=== PATIENT | male | born 1950 | race Caucasian/White ===

== ENCOUNTER → 2016-06-10 | Outpatient (CLI) | payer OTHER ==
[2016-06-10 16:48] LABS: BASO # 0.1 K/mm3 (0.0-0.2); EOS # 0.1 K/mm3 (0.0-0.50); LARGE UNSTAINED CELL # 0.1 K/mm3 (0.0-0.4); LARGE UNSTAINED CELL % 1.8 % (0.0-4.0); LYMPH # 2.1 K/mm3 (1.5-4.5); LYMPH % 28.9 % (24.0-44.0); MEAN CORPUSCULAR HEMOGLOBIN 27.3 pg (27.0-33.0); MEAN CORPUSCULAR HGB CONC 31.1 g/dl (32.0-36.5); MEAN CORPUSCULAR VOLUME 87.8 fl (80.0-96.0); MONO # 0.5 K/mm3 (0.0-0.8); MONO % 6.9 % (0.0-5.0); NEUTROPHILS # 4.1 K/mm3 (1.8-7.7); NEUTROPHILS % 60.3 % (36.0-66.0); PLATELET COUNT, AUTOMATED 297 k/mm3 (150-450); RED CELL DISTRIBUTION WIDTH 14.1 % (11.5-14.5); WHITE BLOOD COUNT 6.8 K/mm3 (4.0-10.0)
[2016-06-10 19:13] LABS: ALBUMIN 4.2 GM/DL (3.2-5.2); ALKALINE PHOSPHATASE 96 U/L (45-117); ALT/SGPT 28 U/L (12-78); ANION GAP 8 MEQ/L (8-16); AST/SGOT 17 U/L (15-37); BILIRUBIN,TOTAL 0.5 MG/DL (0.2-1.0); BLOOD UREA NITROGEN 15 MG/DL (7-18); CALCIUM LEVEL 8.9 MG/DL (8.8-10.2); CARBON DIOXIDE LEVEL 29 MEQ/L (21-32); CHLORIDE LEVEL 106 MEQ/L (98-107); GLOMERULAR FILTRATION RATE > 60.0 (>49); GLUCOSE, FASTING 101 MG/DL (80-110); POTASSIUM SERUM 4.5 MEQ/L (3.5-5.1); SODIUM LEVEL 143 MEQ/L (136-145); TOTAL PROTEIN 7.2 GM/DL (6.4-8.2)
== END ==
LOC: M WUC 10:54
PROVIDERS: ATTEND Physician Assistant
DX: R42 Dizziness and giddiness (principal)

== ENCOUNTER → 2016-10-30 | Outpatient (CLI) | payer OTHER ==
[2016-10-30 14:44] LABS: ALBUMIN 3.8 GM/DL (3.2-5.2); ALBUMIN/GLOBULIN RATIO 1.23 (1.00-1.93); ALKALINE PHOSPHATASE 92 U/L (45-117); ALT/SGPT 30 U/L (12-78); ANION GAP 7 MEQ/L (8-16); AST/SGOT 15 U/L (15-37); BILIRUBIN,TOTAL 0.3 MG/DL (0.2-1.0); BLOOD UREA NITROGEN 12 MG/DL (7-18); CALCIUM LEVEL 9.1 MG/DL (8.8-10.2); CARBON DIOXIDE LEVEL 29 MEQ/L (21-32); CHLORIDE LEVEL 109 MEQ/L (98-107); CHOLESTEROL LEVEL 216 MG/DL (<200); CREATININE FOR GFR 1.19 MG/DL (0.70-1.30); GLOMERULAR FILTRATION RATE > 60.0 (>49); GLUCOSE, FASTING 128 MG/DL (80-110); SODIUM LEVEL 145 MEQ/L (136-145); TOTAL PROTEIN 6.9 GM/DL (6.4-8.2); TRIGLYCERIDES LEVEL 82 MG/DL (<150)
[2016-10-30 14:47] LABS: POTASSIUM SERUM 5.2 MEQ/L (3.5-5.1)
== END ==
LOC: M WUC 08:42
PROVIDERS: ATTEND Nurse Practitioner Family
DX: R07.9 Chest pain, unspecified (principal); Z13.220 Encounter for screening for lipoid disorders

== ENCOUNTER → 2016-12-08 | Outpatient (CLI) | payer OTHER ==
[~2016-12-08] MED LIST: ASPI1TAB PO; ATOR40TA75 PO; METF500T13 PO
--- NOTE | 2016-12-09 02:47 | REP ---
Clinical: Precordial chest pain . Comparison: 08/19/2006 . Technique: PA and lateral. Findings: The mediastinum and cardiac silhouette are normal. The lung florence are clear and without acute consolidation, effusion, or pneumothorax. The skeletal structures are intact and normal. Impression: 1. No acute cardiopulmonary process. Signed by Donny Christensen MD 12/09/2016 02:39 A
== END ==
LOC: M WUC 18:03
PROVIDERS: ATTEND Internal Medicine Cardiovascular Disease
DX: R07.2 Precordial pain (principal)

== ENCOUNTER → 2017-01-25 | Outpatient (CLI) | payer OTHER ==
[2017-01-25 14:58] LABS: ALBUMIN 3.8 GM/DL (3.2-5.2); ALBUMIN/GLOBULIN RATIO 1.27 (1.00-1.93); BILIRUBIN,DIRECT 0.1 MG/DL (0.0-0.2); BILIRUBIN,TOTAL 0.5 MG/DL (0.2-1.0); TOTAL PROTEIN 6.8 GM/DL (6.4-8.2)
== END ==
LOC: M WUC 08:43
PROVIDERS: ATTEND Internal Medicine Cardiovascular Disease
DX: E78.5 Hyperlipidemia, unspecified (principal)

== ENCOUNTER → 2017-01-25 | Outpatient (CLI) | payer OTHER ==
[2017-01-25 15:03] LABS: ALBUMIN/GLOBULIN RATIO 1.38 (1.00-1.93); ALKALINE PHOSPHATASE 108 U/L (45-117); ALT/SGPT 27 U/L (12-78); ANION GAP 7 MEQ/L (8-16); AST/SGOT 18 U/L (15-37); BILIRUBIN,TOTAL 0.4 MG/DL (0.2-1.0); BLOOD UREA NITROGEN 12 MG/DL (7-18); CALCIUM LEVEL 9.1 MG/DL (8.8-10.2); CARBON DIOXIDE LEVEL 29 MEQ/L (21-32); CHLORIDE LEVEL 108 MEQ/L (98-107); CHOLESTEROL LEVEL 117 MG/DL (<200); CREATININE FOR GFR 0.96 MG/DL (0.70-1.30); GLOMERULAR FILTRATION RATE > 60.0 (>49); GLUCOSE, FASTING 122 MG/DL (80-110); SODIUM LEVEL 144 MEQ/L (136-145); TOTAL PROTEIN 6.9 GM/DL (6.4-8.2); TRIGLYCERIDES LEVEL 81 MG/DL (<150)
== END ==
LOC: M WUC 08:40
PROVIDERS: ATTEND Nurse Practitioner Family
DX: R73.01 Impaired fasting glucose (principal); E78.5 Hyperlipidemia, unspecified

== ENCOUNTER 2017-02-03 23:45 | Emergency (ER) | payer OTHER ==
[~2017-02-03] VITALS: Ht 167.6 cm; Wt 67.7 kg
[2017-02-03] MEDS ORDERED: ASPI1TAB PO (23:54)
[2017-02-03] MEDS ORDERED: METF500T13 PO (23:54)
[2017-02-03] MEDS ORDERED: ATOR40TA75 PO (23:54)
[2017-02-04] MEDS ORDERED: ONDANSETRON 4MG/2ML VIAL (J2405) IV ONE (00:45)
[2017-02-04] MEDS ORDERED: NS 500 ML IV ONE (00:45)
[2017-02-04] MEDS ORDERED: DICYCLOMINE INJ 20MG/2ML (J0500) IM ONE (00:45)
[2017-02-04 00:57] LABS: BASO % 0.3 % (0.0-1.0); EOS % 0.6 % (0.0-3.0); LARGE UNSTAINED CELL # 0.1 K/mm3 (0.0-0.4); LARGE UNSTAINED CELL % 1.2 % (0.0-4.0); LYMPH # 0.9 K/mm3 (1.5-4.5); LYMPH % 11.6 % (24.0-44.0); MEAN CORPUSCULAR HEMOGLOBIN 24.1 pg (27.0-33.0); MEAN CORPUSCULAR HGB CONC 31.4 g/dl (32.0-36.5); MEAN CORPUSCULAR VOLUME 76.8 fl (80.0-96.0); MONO # 0.3 K/mm3 (0.0-0.8); MONO % 4.5 % (0.0-5.0); NEUTROPHILS % 81.8 % (36.0-66.0); PLATELET COUNT, AUTOMATED 313 k/mm3 (150-450); RED CELL DISTRIBUTION WIDTH 15.3 % (11.5-14.5); WHITE BLOOD COUNT 7.3 K/mm3 (4.0-10.0)
[2017-02-04 01:23] LABS: ALBUMIN 3.7 GM/DL (3.2-5.2); ALBUMIN/GLOBULIN RATIO 1.09 (1.00-1.93); ALKALINE PHOSPHATASE 101 U/L (45-117); ALT/SGPT 46 U/L (12-78); ANION GAP 6 MEQ/L (8-16); AST/SGOT 29 U/L (15-37); BILIRUBIN,DIRECT 0.1 MG/DL (0.0-0.2); BILIRUBIN,TOTAL 0.4 MG/DL (0.2-1.0); BLOOD UREA NITROGEN 16 MG/DL (7-18); CALCIUM LEVEL 8.6 MG/DL (8.8-10.2); CARBON DIOXIDE LEVEL 27 MEQ/L (21-32); CHLORIDE LEVEL 104 MEQ/L (98-107); CREATININE FOR GFR 0.98 MG/DL (0.70-1.30); GLOMERULAR FILTRATION RATE > 60.0 (>49); GLUCOSE, FASTING 169 MG/DL (80-110); SODIUM LEVEL 137 MEQ/L (136-145); TOTAL PROTEIN 7.1 GM/DL (6.4-8.2)
[2017-02-04 01:45] VITALS: BP 161/94
== END 2017-02-04 01:47 | disposition home or self-care (01) ==
LOC: M ED 23:45
DX: R10.30 Lower abdominal pain, unspecified (principal); D64.9 Anemia, unspecified; E11.9 Type 2 diabetes mellitus without complications; E78.5 Hyperlipidemia, unspecified; Z79.899 Other long term (current) drug therapy; Z79.84 Long term (current) use of oral hypoglycemic drugs; Z79.82 Long term (current) use of aspirin
CPT/HCPCS: 36415; 80048; 80076; 83690; 85025; 96372; 96374; 99283; J0500; J2405

== ENCOUNTER → 2017-02-26 | Outpatient (CLI) | payer OTHER ==
[2017-02-26 13:25] LABS: BASO # 0.1 10^3/uL (0.0-0.2); BASO % 0.8 % (0.0-1.0); EOS # 0.1 10^3/uL (0.0-0.50); EOS % 1.4 % (0.0-3.0); IMMATURE GRANULOCYTE % 0.2 % (0-0); LYMPH # 1.9 10^3/uL (1.5-4.5); LYMPH % 29.1 % (24.0-44.0); MEAN CORPUSCULAR HEMOGLOBIN 22.5 pg (27.0-33.0); MEAN CORPUSCULAR HGB CONC 29.1 g/dl (32.0-36.5); MEAN CORPUSCULAR VOLUME 77.3 fl (80.0-96.0); MONO # 0.6 10^3/uL (0.0-0.8); MONO % 9.5 % (0.0-5.0); NEUTROPHILS # 3.8 10^3/uL (1.8-7.7); PLATELET COUNT, AUTOMATED 377 10^3/uL (150-450); RED CELL DISTRIBUTION WIDTH 15.4 % (11.5-14.5); WHITE BLOOD COUNT 6.4 10^3/uL (4.0-10.0)
[2017-02-26 20:05] LABS: REASON FOR REVIEW COMPREHENSIVE REVIEW
== END ==
LOC: M WUC 10:05
PROVIDERS: ATTEND Nurse Practitioner Family
DX: D64.9 Anemia, unspecified (principal)

== ENCOUNTER → 2017-04-09 | Outpatient (CLI) | payer OTHER ==
[~2017-04-09] MED LIST changes: +GLYB125TA PO; +IRON65TA PO
[2017-04-09 13:27] LABS: BASO % 0.5 % (0.0-1.0); EOS # 0.1 10^3/uL (0.0-0.50); EOS % 1.5 % (0.0-3.0); IMMATURE GRANULOCYTE % 0.3 % (0-0); LYMPH # 1.8 10^3/uL (1.5-4.5); MEAN CORPUSCULAR HEMOGLOBIN 27.5 pg (27.0-33.0); MEAN CORPUSCULAR HGB CONC 31.5 g/dl (32.0-36.5); MEAN CORPUSCULAR VOLUME 87.3 fl (80.0-96.0); MONO # 0.6 10^3/uL (0.0-0.8); MONO % 9.3 % (0.0-5.0); NEUTROPHILS % 61.4 % (36.0-66.0); PLATELET COUNT, AUTOMATED 310 10^3/uL (150-450); WHITE BLOOD COUNT 6.6 10^3/uL (4.0-10.0)
[2017-04-09 13:36] LABS: ADD MORPHOLOGY? YES; POSITIVE MORPH POS FLAG
[2017-04-09 13:58] LABS: ANISOCYTOSIS 2+; CRENATED RBC 1+; OVALOCYTES 1+; SCHISTOCYTES 1+
== END ==
LOC: M WUC 10:01
PROVIDERS: ATTEND Nurse Practitioner Family
DX: D64.9 Anemia, unspecified (principal)

== ENCOUNTER 2017-04-15 12:32 | Day surgery (SDC) | payer OTHER ==
[~2017-04-15] VITALS: Ht 167.6 cm; Wt 66.2 kg
[~2017-04-15 12:32] MED LIST changes: +LIDOCAINE 2% INJ 100 MG/5 ML SDV (FOR ANES.) As Ordered ONE; +PROPOFOL 200 MG/20 ML VIAL As Ordered ONE
[2017-04-15] MEDS ORDERED: NS 1,000 ML IV ONE (13:15)
--- NOTE | 2017-04-15 13:37 | ROOR ---
Patient Name: Nura Fink Procedure Date: 04/15/2017 1:15 PM Date of : 1950 Age: 66 Room: [facility] Gender: Male Note Status: Finalized Procedure: Upper GI endoscopy Indications: Iron deficiency anemia Providers: Griffin Mathias Jr, MD Referring MD: Dimitrios Cates NP Requesting Provider: Medicines: Propofol per Anesthesia Complications: No immediate complications. Procedure: Pre-Anesthesia Assessment: - Prior to the procedure, a History and Physical was performed, and patient medications and allergies were reviewed. The patient is competent. The risks and benefits of the procedure and the sedation options and risks were discussed with the patient. All questions were answered and informed consent was obtained. Patient identification and proposed procedure were verified by the physician and the nurse in the pre-procedure area and in the procedure room. Mental Status Examination: alert and oriented. Airway Examination: normal oropharyngeal airway and neck mobility. Respiratory Examination: clear to auscultation. CV Examination: normal. ASA Grade Assessment: II - A patient with mild systemic disease. After reviewing the risks and benefits, the patient was deemed in satisfactory condition to undergo the procedure. The anesthesia plan was to use moderate sedation / analgesia (conscious sedation). Immediately prior to administration of medications, the patient was re-assessed for adequacy to receive sedatives. The heart rate, respiratory rate, oxygen saturations, blood pressure, adequacy of pulmonary ventilation, and response to care were monitored throughout the procedure. The physical status of the patient was re-assessed after the procedure. The Endoscope was introduced through the mouth, and advanced to the second part of duodenum. The patient tolerated the procedure well. The upper GI endoscopy was accomplished without difficulty. Findings: The upper third of the esophagus and middle third of the esophagus were normal. LA Grade A (one or more mucosal breaks less than 5 mm, not extending between tops of 2 mucosal folds) esophagitis with no bleeding was found in the lower third of the esophagus. Biopsies were taken with a cold forceps for histology. Patchy moderate inflammation characterized by congestion (edema), erythema and friability was found in the duodenal bulb. The first portion of the duodenum and second portion of the duodenum were normal. Diffuse mildly erythematous mucosa without bleeding was found in the gastric fundus, in the gastric body, in the gastric antrum, in the prepyloric region of the stomach and at the pylorus. A small hiatal hernia was present. Impression: - Normal upper third of esophagus and middle third of esophagus. - LA Grade A reflux esophagitis. Biopsied. - Duodenitis. - Normal first portion of the duodenum and second portion of the duodenum. - Erythematous mucosa in the gastric fundus, gastric body, antrum, prepyloric region of the stomach and pylorus. - Small hiatal hernia. Recommendation: - Discharge patient to home (ambulatory). Griffin Mathias MD Griffin Mathias Jr, MD 04/15/2017 1:36:47 PM This report has been signed electronically. Number of Addenda: 0 Note Initiated On: 04/15/2017 1:15 PM Estimated Blood Loss: Estimated blood loss: none.
[2017-04-15] MEDS ORDERED: PROPOFOL 200 MG/20 ML VIAL As Ordered ONE (13:48)
[2017-04-15] MEDS ORDERED: PHENYLephrine HCL 500 MCG/5 ML (100MCG/ML) SYRINGE (J2370) As Ordered ONE (13:49)
[2017-04-15 14:30] VITALS: BP 129/68
--- NOTE | 2017-04-15 16:00 | ROOR ---
Patient Name: Nura Fink Procedure Date: 04/15/2017 1:15 PM Date of : 1950 Age: 66 Room: [facility] Gender: Male Note Status: Finalized Procedure: Colonoscopy Indications: Iron deficiency anemia Providers: Griffin Mathias Jr, MD Referring MD: Dimitrios Cates NP Requesting Provider: Medicines: Propofol per Anesthesia Complications: No immediate complications. Procedure: Pre-Anesthesia Assessment: - Prior to the procedure, a History and Physical was performed, and patient medications and allergies were reviewed. The patient is competent. The risks and benefits of the procedure and the sedation options and risks were discussed with the patient. All questions were answered and informed consent was obtained. Patient identification and proposed procedure were verified by the physician and the nurse in the pre-procedure area and in the procedure room. Mental Status Examination: alert and oriented. Airway Examination: normal oropharyngeal airway and neck mobility. Respiratory Examination: clear to auscultation. CV Examination: normal. ASA Grade Assessment: II - A patient with mild systemic disease. After reviewing the risks and benefits, the patient was deemed in satisfactory condition to undergo the procedure. The anesthesia plan was to use moderate sedation / analgesia (conscious sedation). Immediately prior to administration of medications, the patient was re-assessed for adequacy to receive sedatives. The heart rate, respiratory rate, oxygen saturations, blood pressure, adequacy of pulmonary ventilation, and response to care were monitored throughout the procedure. The physical status of the patient was re-assessed after the procedure. The Colonoscope was introduced through the anus and advanced to the cecum, identified by appendiceal orifice and ileocecal valve. The colonoscopy was performed without difficulty. The patient tolerated the procedure well. The quality of the bowel preparation was adequate and good. Findings: A medium polyp was found in the recto-sigmoid colon. The polyp was removed with a hot snare. Resection and retrieval were complete. A few small and large-mouthed diverticula were found in the sigmoid colon. The rectum, descending colon and transverse colon appeared normal. A fungating, infiltrative and ulcerated partially obstructing large mass was found in the ascending colon. The mass was circumferential. Oozing was present. Biopsies were taken with a cold forceps for histology. Area was successfully injected with 2 mL Spot (carbon black) for tattooing. Impression: - One medium polyp at the recto-sigmoid colon, removed with a hot snare. Resected and retrieved. - Diverticulosis in the sigmoid colon. - The rectum, descending colon and transverse colon are normal. - Likely malignant partially obstructing tumor in the ascending colon. Biopsied. Injected. Recommendation: - Discharge patient to home (ambulatory). - Return to my office in 1 week. Griffin Mathias MD Griffin Mathias Jr, MD 04/15/2017 4:00:05 PM This report has been signed electronically. Number of Addenda: 0 Note Initiated On: 04/15/2017 1:15 PM Estimated Blood Loss: Estimated blood loss: none.
== END 2017-04-15 14:50 | disposition home or self-care (01) ==
LOC: M OPP 12:32
PROVIDERS: ATTEND Surgery
DX: R10.13 Epigastric pain (principal); D12.7 Benign neoplasm of rectosigmoid junction; K57.30 Diverticulosis of large intestine without perforation or abscess without bleeding; D49.0 Neoplasm of unspecified behavior of digestive system; K31.89 Other diseases of stomach and duodenum; K29.80 Duodenitis without bleeding; K21.0 Gastro-esophageal reflux disease with esophagitis; K44.9 Diaphragmatic hernia without obstruction or gangrene; D50.9 Iron deficiency anemia, unspecified; E78.00 Pure hypercholesterolemia, unspecified; E11.9 Type 2 diabetes mellitus without complications; R06.02 Shortness of breath; I25.2 Old myocardial infarction; Z79.82 Long term (current) use of aspirin; Z79.84 Long term (current) use of oral hypoglycemic drugs; Z79.899 Other long term (current) drug therapy; Z80.9 Family history of malignant neoplasm, unspecified
CPT/HCPCS: 43239; 45380; 45381; 45385; 88305; J2370

== ENCOUNTER → 2017-04-19 | Outpatient (CLI) | payer OTHER ==
[~2017-04-19] MED LIST changes: -LIDOCAINE 2% INJ 100 MG/5 ML SDV (FOR ANES.) As Ordered ONE; +NEXI40CA PO; -PROPOFOL 200 MG/20 ML VIAL As Ordered ONE
[2017-04-19 11:04] LABS: BLOOD UREA NITROGEN 13 MG/DL (7-18); CREATININE FOR GFR 0.92 MG/DL (0.70-1.30); GLOMERULAR FILTRATION RATE > 60.0 (>49)
== END ==
LOC: M LAB 08:58
PROVIDERS: ATTEND Surgery
DX: D12.2 Benign neoplasm of ascending colon (principal)

== ENCOUNTER → 2017-04-20 | Outpatient (CLI) | payer OTHER ==
[~2017-04-20] MED LIST changes: +GASTROGRAFIN SOLUTION 30ML (Q9963) As Ordered ONE; +ISOVUE-370 76% 100ML VIAL (Q9967) As Ordered ONE
--- NOTE | 2017-04-21 09:47 | REP ---
CONTRAST ENHANCED CT OF THE ABDOMEN AND PELVIS: HISTORY: Right colon mass. TECHNIQUE: Axial contrast enhanced images from the lung bases to the pubic symphysis using oral (per protocol) and 100 mL Isovue 370 intravenous contrast material with coronal and sagittal reformations. COMPARISON: None. FINDINGS: There is mural thickening to the distal/terminal ileum as well as irregular mural thickening having a somewhat mass like appearance at the base of the cecum with asymmetric mural thickening and pericolonic stranding as well as possible few small lymph nodes measuring up to approximately 9 mm (images 90-110). The appendix is normal. The remainder of the colon demonstrates scattered and sigmoid diverticula without acute diverticulitis. The small bowel is without obstruction or further acute inflammatory process. Liver, spleen, pancreas, gallbladder, bilateral adrenal glands and kidneys are normal. Pelvis demonstrate normal bladder and age appropriate prostate/seminal vesicles. No pelvic fluid or ascites. No retroperitoneal adenopathy or significant intra-abdominal adenopathy. Pelvis demonstrates normal bladder and mildly prominent prostate gland measuring approximately 4.5 cm transverse diameter. No free air. No ascites. Musculoskeletal structures demonstrate age related changes without focal osseous abnormality. Lung bases are clear. IMPRESSION: 1. Mural thickening to the terminal ileum as well as irregular asymmetric mass like mural thickening to the base of the cecum with mild pericolonic stranding and few lymph nodes up to approximately 9 mm. Appendix is normal. Differential diagnosis includes neoplasm and an acute terminal ileitis/cecitis. Correlation is required. 2. No further significant acute abdominal or pelvic pathology appreciated. 3. Few scattered colonic and sigmoid diverticula without diverticulitis. 4. Mild atherosclerotic changes to the aorta and branch vessels without aneurysm. Signed by Donny Christensen MD 04/23/2017 08:50 A
== END ==
LOC: M RAD 15:22
PROVIDERS: ATTEND Surgery
DX: D12.2 Benign neoplasm of ascending colon (principal)

== ENCOUNTER 2017-05-03 10:16 | Inpatient (IN) | payer OTHER, MEDICARE ==
[2017-05-03] MEDS: ATORVASTATIN 20 MG TAB PO (09:00)
[~2017-05-03 10:16] MED LIST changes: -ASPI1TAB PO; -ATOR40TA75 PO; -GASTROGRAFIN SOLUTION 30ML (Q9963) As Ordered ONE; -GLYB125TA PO; +GLYCOPYRROLATE INJ 0.2 MG/ML 2 ML VIAL As Ordered; +HYDROmorphone HCL 2 MG/ML 1ML VIAL (J1170) As Ordered; -IRON65TA PO; -ISOVUE-370 76% 100ML VIAL (Q9967) As Ordered ONE; +LIDOCAINE 2% INJ 100 MG/5 ML SDV (FOR ANES.) As Ordered; +LIDOCAINE 2% JELLY 30 ML As Ordered; -METF500T13 PO; +MIDAZOLAM INJ 2 MG/2 ML VIAL (J2250) As Ordered; +NEOSTIGMINE 10 MG/10 ML VIAL (J2710) As Ordered; -NEXI40CA PO; +ONDANSETRON 4MG/2ML VIAL (J2405) As Ordered; +PROPOFOL 200 MG/20 ML VIAL As Ordered; +ROCURONIUM BROMIDE 50 MG/5 ML VIAL As Ordered; +fentaNYL 100 MCG/2 ML INJECTION (J3010) As Ordered
[2017-05-03] MEDS ORDERED: NS 1,000 ML IV ×2 (10:30→14:17)
[2017-05-03] MEDS: LIDOCAINE W/EPINEPHRINE 1% 20ML VIAL As Ordered (12:34)
[2017-05-03] MEDS ORDERED: PROPOFOL 200 MG/20 ML VIAL As Ordered (13:21)
[2017-05-03] MEDS ORDERED: PHENYLEPHRINE INJ 10MG/ML VIAL (J2370) As Ordered (13:21)
[2017-05-03] MEDS ORDERED: ROCURONIUM BROMIDE 50 MG/5 ML VIAL As Ordered (13:21)
[2017-05-03] MEDS ORDERED: fentaNYL 100 MCG/2 ML INJECTION (J3010) As Ordered (13:41)
[2017-05-03] MEDS ORDERED: LABETALOL HCL 100 MG/20 ML VIAL As Ordered ×2 (13:53→15:25)
[2017-05-03] MEDS ORDERED: BUPIVACAINE LIPOSOME/PF 1.3% 20 ML VIAL (13.3MG/ML)(EXPAREL) As Ordered (13:58)
[2017-05-03] MEDS ORDERED: BUPIVACAINE HCL 0.5% 10 ML VIAL As Ordered (14:01)
[2017-05-03] MEDS ORDERED: METOCLOPRAMIDE INJ 10MG/2ML VIAL (J2765) IV (14:15)
[2017-05-03] MEDS ORDERED: PROMETHAZINE INJ 25 MG/ML VIAL (J2550) IV (14:15)
[2017-05-03] MEDS ORDERED: ONDANSETRON 4MG/2ML VIAL (J2405) IV ×3 (14:15→15:00)
[2017-05-03] MEDS ORDERED: IPRATROPIUM 0.5MG/ALBUTEROL 2.5MG INH SOL UD 3ML (DUONEB)(J7620) NEB (14:15)
[2017-05-03] MEDS ORDERED: diphenhydrAMINE INJ 50MG/ML VIAL (J1200) IV (14:30)
[2017-05-03] MEDS ORDERED: NALOXONE INJ 0.4 MG/1 ML VIAL (J2310) IV (14:30)
[2017-05-03] MEDS ORDERED: NALBUPHINE HCL 10 MG/ML AMP (J2300) IV (14:30)
[2017-05-03] MEDS ORDERED: MORPHINE 1MG/ML IN 0.9% NACL 100ML IV BAG IV (14:30)
[2017-05-03] MEDS ORDERED: EPIDURAL/PCA KEYS XX (14:30)
[2017-05-03] MEDS: LR 1,000 ML IV (15:00)
[2017-05-03] MEDS ORDERED: PERCOCET 5MG/325MG TAB PO (15:00)
[2017-05-03] MEDS ORDERED: fentaNYL 100 MCG/2 ML INJECTION (J3010) IV (15:00)
[2017-05-03] MEDS ORDERED: HYDROmorphone HCL 1 MG/ML SYRINGE (J1170) IV (15:00)
[2017-05-03] MEDS: LABETALOL HCL 100 MG/20 ML VIAL IV (15:31)
[2017-05-03] MEDS: KETOROLAC 30 MG/ML VIAL (J1885) IV (15:39)
[2017-05-03] MEDS: NS 1,000 ML IV ×2 (16:41→22:13)
[2017-05-03] MEDS: PANTOPRAZOLE 40MG INJ (PROTONIX) (C9113) IV (16:41)
[2017-05-03] MEDS: IPRATROPIUM 0.5MG/ALBUTEROL 2.5MG INH SOL UD 3ML (DUONEB)(J7620) NEB (20:31)
[2017-05-03] MEDS: CEFAZOLIN SOD 1 GM in APPROPRIATE DILUENT 1 EA IV (21:02)
[2017-05-04] MEDS: NS 1,000 ML IV ×3 (00:42→23:45)
[2017-05-04] MEDS: IPRATROPIUM 0.5MG/ALBUTEROL 2.5MG INH SOL UD 3ML (DUONEB)(J7620) NEB ×4 (01:34→20:34)
[2017-05-04] MEDS: CEFAZOLIN SOD 1 GM in APPROPRIATE DILUENT 1 EA IV ×3 (03:43→20:06)
[2017-05-04 06:42] LABS: MEAN CORPUSCULAR HEMOGLOBIN 27.6 pg (27.0-33.0); MEAN CORPUSCULAR HGB CONC 31.6 g/dl (32.0-36.5); MEAN CORPUSCULAR VOLUME 87.2 fl (80.0-96.0); PLATELET COUNT, AUTOMATED 245 10^3/uL (150-450); RED CELL DISTRIBUTION WIDTH 18.3 % (11.5-14.5); WHITE BLOOD COUNT 6.2 10^3/uL (4.0-10.0)
[2017-05-04 06:53] LABS: ANION GAP 7 MEQ/L (8-16); BLOOD UREA NITROGEN 17 MG/DL (7-18); CALCIUM LEVEL 7.3 MG/DL (8.8-10.2); CARBON DIOXIDE LEVEL 26 MEQ/L (21-32); CHLORIDE LEVEL 108 MEQ/L (98-107); CREATININE FOR GFR 0.89 MG/DL (0.70-1.30); GLOMERULAR FILTRATION RATE > 60.0 (>49); GLUCOSE, FASTING 87 MG/DL (80-110); POTASSIUM SERUM 4.3 MEQ/L (3.5-5.1); SODIUM LEVEL 141 MEQ/L (136-145)
[2017-05-04] MEDS: ATORVASTATIN 20 MG TAB PO (08:18)
[2017-05-04] MEDS: PANTOPRAZOLE 40MG INJ (PROTONIX) (C9113) IV (08:18)
[2017-05-04] MEDS: KETOROLAC 30 MG/ML VIAL (J1885) IV (21:58)
[2017-05-05] MEDS: IPRATROPIUM 0.5MG/ALBUTEROL 2.5MG INH SOL UD 3ML (DUONEB)(J7620) NEB ×4 (02:00→19:58)
[2017-05-05 06:58] LABS: MEAN CORPUSCULAR HEMOGLOBIN 27.8 pg (27.0-33.0); MEAN CORPUSCULAR HGB CONC 32.2 g/dl (32.0-36.5); MEAN CORPUSCULAR VOLUME 86.2 fl (80.0-96.0); PLATELET COUNT, AUTOMATED 257 10^3/uL (150-450); RED CELL DISTRIBUTION WIDTH 17.5 % (11.5-14.5); WHITE BLOOD COUNT 6.9 10^3/uL (4.0-10.0)
[2017-05-05 07:02] LABS: ANION GAP 9 MEQ/L (8-16); BLOOD UREA NITROGEN 12 MG/DL (7-18); CALCIUM LEVEL 7.8 MG/DL (8.8-10.2); CARBON DIOXIDE LEVEL 27 MEQ/L (21-32); CHLORIDE LEVEL 105 MEQ/L (98-107); CREATININE FOR GFR 0.74 MG/DL (0.70-1.30); GLOMERULAR FILTRATION RATE > 60.0 (>49); GLUCOSE, FASTING 78 MG/DL (80-110); SODIUM LEVEL 141 MEQ/L (136-145)
[2017-05-05] MEDS: ATORVASTATIN 20 MG TAB PO (07:54)
[2017-05-05] MEDS: PANTOPRAZOLE 40MG INJ (PROTONIX) (C9113) IV (07:54)
[2017-05-05] MEDS: SIMETHICONE 80 MG CHEW TAB PO ×4 (10:04→20:12)
[2017-05-05] MEDS: ALVIMOPAN 12 MG CAPSULE (ENTEREG) PO ×2 (10:04→20:12)
[2017-05-05] MEDS: INFLUENZA QUADRIVALENT PF VACCINE 0.5ML SYRINGE (90686) IM (11:41)
[2017-05-05] MEDS: PNEUMOCOCCAL VACCINE 0.5ML SYRINGE(90732) PNEUMOVAX 23 IM (11:41)
[2017-05-05] MEDS: NS 1,000 ML IV (17:50)
[2017-05-06] MEDS: IPRATROPIUM 0.5MG/ALBUTEROL 2.5MG INH SOL UD 3ML (DUONEB)(J7620) NEB ×4 (02:00→20:20)
[2017-05-06 07:24] LABS: MEAN CORPUSCULAR HEMOGLOBIN 28.1 pg (27.0-33.0); MEAN CORPUSCULAR HGB CONC 32.5 g/dl (32.0-36.5); MEAN CORPUSCULAR VOLUME 86.5 fl (80.0-96.0); PLATELET COUNT, AUTOMATED 260 10^3/uL (150-450); WHITE BLOOD COUNT 6.5 10^3/uL (4.0-10.0)
[2017-05-06 07:40] LABS: ANION GAP 9 MEQ/L (8-16); BLOOD UREA NITROGEN 10 MG/DL (7-18); CARBON DIOXIDE LEVEL 26 MEQ/L (21-32); CHLORIDE LEVEL 107 MEQ/L (98-107); GLOMERULAR FILTRATION RATE > 60.0 (>49); GLUCOSE, FASTING 89 MG/DL (80-110); POTASSIUM SERUM 4.1 MEQ/L (3.5-5.1); SODIUM LEVEL 142 MEQ/L (136-145)
[2017-05-06] MEDS: SIMETHICONE 80 MG CHEW TAB PO ×4 (09:51→20:10)
[2017-05-06] MEDS: ALVIMOPAN 12 MG CAPSULE (ENTEREG) PO ×2 (09:51→20:10)
[2017-05-06] MEDS: ATORVASTATIN 20 MG TAB PO (09:51)
[2017-05-06] MEDS: PANTOPRAZOLE 40MG INJ (PROTONIX) (C9113) IV (09:51)
[2017-05-06] MEDS: INFLUENZA QUADRIVALENT PF VACCINE 0.5ML SYRINGE (90686) IM (10:01)
[2017-05-06] MEDS: NORCO, ANEXSIA 5/325MG TABLET (HYDROcodone/ACETAMINOPHEN) PO ×3 (10:06→20:12)
[2017-05-06] MEDS: PNEUMOCOCCAL VACCINE 0.5ML SYRINGE(90732) PNEUMOVAX 23 IM (13:37)
[2017-05-07] MEDS: IPRATROPIUM 0.5MG/ALBUTEROL 2.5MG INH SOL UD 3ML (DUONEB)(J7620) NEB ×4 (01:42→20:40)
[2017-05-07 06:42] LABS: MEAN CORPUSCULAR HEMOGLOBIN 27.7 pg (27.0-33.0); MEAN CORPUSCULAR HGB CONC 32.1 g/dl (32.0-36.5); MEAN CORPUSCULAR VOLUME 86.3 fl (80.0-96.0); PLATELET COUNT, AUTOMATED 305 10^3/uL (150-450); RED CELL DISTRIBUTION WIDTH 16.9 % (11.5-14.5); WHITE BLOOD COUNT 5.7 10^3/uL (4.0-10.0)
[2017-05-07 06:57] LABS: ANION GAP 7 MEQ/L (8-16); BLOOD UREA NITROGEN 7 MG/DL (7-18); CALCIUM LEVEL 8.3 MG/DL (8.8-10.2); CARBON DIOXIDE LEVEL 30 MEQ/L (21-32); CHLORIDE LEVEL 105 MEQ/L (98-107); CREATININE FOR GFR 0.79 MG/DL (0.70-1.30); GLOMERULAR FILTRATION RATE > 60.0 (>49); GLUCOSE, FASTING 122 MG/DL (80-110); POTASSIUM SERUM 3.5 MEQ/L (3.5-5.1); SODIUM LEVEL 142 MEQ/L (136-145)
[2017-05-07] MEDS ORDERED: BISACODYL 10 MG SUPP PR (09:30)
[2017-05-07] MEDS: PANTOPRAZOLE 40MG INJ (PROTONIX) (C9113) IV (09:43)
[2017-05-07] MEDS: ATORVASTATIN 20 MG TAB PO (09:43)
[2017-05-07] MEDS: SIMETHICONE 80 MG CHEW TAB PO ×4 (09:43→21:46)
[2017-05-07] MEDS: ALVIMOPAN 12 MG CAPSULE (ENTEREG) PO ×2 (09:43→21:46)
[2017-05-07] MEDS: NORCO, ANEXSIA 5/325MG TABLET (HYDROcodone/ACETAMINOPHEN) PO ×2 (10:55→21:47)
[2017-05-08] MEDS: IPRATROPIUM 0.5MG/ALBUTEROL 2.5MG INH SOL UD 3ML (DUONEB)(J7620) NEB ×2 (02:00→07:59)
[2017-05-08 06:02] LABS: MEAN CORPUSCULAR HEMOGLOBIN 27.8 pg (27.0-33.0); MEAN CORPUSCULAR HGB CONC 32.6 g/dl (32.0-36.5); MEAN CORPUSCULAR VOLUME 85.3 fl (80.0-96.0); PLATELET COUNT, AUTOMATED 271 10^3/uL (150-450); RED CELL DISTRIBUTION WIDTH 16.5 % (11.5-14.5); WHITE BLOOD COUNT 5.1 10^3/uL (4.0-10.0)
[2017-05-08 06:21] LABS: ANION GAP 6 MEQ/L (8-16); BLOOD UREA NITROGEN 7 MG/DL (7-18); CARBON DIOXIDE LEVEL 30 MEQ/L (21-32); CHLORIDE LEVEL 106 MEQ/L (98-107); CREATININE FOR GFR 0.72 MG/DL (0.70-1.30); GLOMERULAR FILTRATION RATE > 60.0 (>49); GLUCOSE, FASTING 118 MG/DL (80-110); POTASSIUM SERUM 3.3 MEQ/L (3.5-5.1); SODIUM LEVEL 142 MEQ/L (136-145)
[2017-05-08] MEDS: ALVIMOPAN 12 MG CAPSULE (ENTEREG) PO (08:30)
[2017-05-08] MEDS: ATORVASTATIN 20 MG TAB PO (08:30)
[2017-05-08] MEDS: PANTOPRAZOLE 40MG INJ (PROTONIX) (C9113) IV (08:31)
[2017-05-08] MEDS: SIMETHICONE 80 MG CHEW TAB PO (08:31)
== END 2017-05-08 13:38 | disposition home or self-care (01) | DRG 221 ==
LOC: M OR 10:16 → M MSPAV 16:00
PROC: 0DTF0ZZ Resection of Right Large Intestine, Open Approach (ICD-10-PCS; principal; 2017-05-03 11:54)
DX: C18.9 Malignant neoplasm of colon, unspecified (principal); E11.9 Type 2 diabetes mellitus without complications; E78.00 Pure hypercholesterolemia, unspecified; K21.9 Gastro-esophageal reflux disease without esophagitis; Z79.899 Other long term (current) drug therapy

== ENCOUNTER 2017-06-03 11:32 | Inpatient (IN) | payer OTHER, MEDICARE ==
[2017-06-03] MEDS ORDERED: ONDANSETRON 4MG/2ML VIAL (J2405) As Ordered (11:42)
[2017-06-03] MEDS ORDERED: ISOVUE-370 76% 100ML VIAL (Q9967) As Ordered (11:48)
[2017-06-03] MEDS: NS 1,000 ML IV ×3 (12:00→13:26)
[2017-06-03] MEDS: ONDANSETRON 4MG/2ML VIAL (J2405) IV ×2 (12:00→12:28)
[2017-06-03 12:04] LABS: ABG BASE EXCESS -13.4 (-2.0-2.0); ABG HCO3 11.1 MEQ/L (22.0-26.0); ABG O2 SATURATION 99.1 % (95.0-99.0); ABG PARTIAL PRESSURE CO2 23.3 mmHg (35.0-45.0); ABG PARTIAL PRESSURE O2 164.8 mmHg (75.0-100.0); ABG STANDARD HCO3 14.2 MEQ/L (22.0-26.0); ABG TOTAL CO2 11.8 MEQ/L (23.0-31.0); ABG pH (ARTERIAL) 7.294 UNITS (7.350-7.450)
[2017-06-03 12:46] LABS: ALBUMIN 4.1 GM/DL (3.2-5.2); ALBUMIN/GLOBULIN RATIO 1.32 (1.00-1.93); ALKALINE PHOSPHATASE 97 U/L (45-117); ALT/SGPT 34 U/L (12-78); AMYLASE 107 U/L (25-115); ANION GAP 16 MEQ/L (8-16); AST/SGOT 24 U/L (7-37); BILIRUBIN,DIRECT < 0.1 MG/DL (0.0-0.2); BILIRUBIN,TOTAL 0.3 MG/DL (0.2-1.0); BLOOD UREA NITROGEN 12 MG/DL (7-18); CALCIUM LEVEL 8.8 MG/DL (8.8-10.2); CARBON DIOXIDE LEVEL 17 MEQ/L (21-32); CHLORIDE LEVEL 111 MEQ/L (98-107); CPK CREATINE PHOSPHOKINASE 148 U/L (39-308); GLOMERULAR FILTRATION RATE > 60.0 (>49); GLUCOSE, FASTING 102 MG/DL (80-110); LIPASE 148 U/L (73-393); POTASSIUM SERUM 3.4 MEQ/L (3.5-5.1); SODIUM LEVEL 144 MEQ/L (136-145); TOTAL PROTEIN 7.2 GM/DL (6.4-8.2); TROPONIN I < 0.02 NG/ML (< 0.10)
[2017-06-03 12:47] LABS: BASO % 0.5 % (0.0-1.0); CK-MB VALUE MASS 2.1 NG/ML (0.0-3.6); EOS # 0.1 10^3/uL (0.0-0.50); EOS % 0.8 % (0.0-3.0); HEMATOCRIT 35.5 % (42.0-52.0); HEMOGLOBIN 11.6 g/dl (14.0-18.0); IMMATURE GRANULOCYTE % 0.5 % (0-0); LYMPH # 1.7 10^3/uL (1.5-4.5); LYMPH % 25.7 % (24.0-44.0); MB/CK RELATIVE INDEX 1.41 (< OR =4); MEAN CORPUSCULAR HEMOGLOBIN 28.2 pg (27.0-33.0); MEAN CORPUSCULAR HGB CONC 32.7 g/dl (32.0-36.5); MEAN CORPUSCULAR VOLUME 86.2 fl (80.0-96.0); MONO # 0.6 10^3/uL (0.0-0.8); MONO % 9.8 % (0.0-5.0); NEUTROPHILS # 4.1 10^3/uL (1.8-7.7); NEUTROPHILS % 62.7 % (36.0-66.0); PLATELET COUNT, AUTOMATED 211 10^3/uL (150-450); RED BLOOD COUNT 4.12 10^6/uL (4.30-6.10); WHITE BLOOD COUNT 6.5 10^3/uL (4.0-10.0)
[2017-06-03 12:58] LABS: INR 1.04; PROTHROMBIN TIME 13.7 SECONDS (12.4-14.5)
[2017-06-03 12:59] LABS: PARTIAL THROMBOPLASTIN TIME 24.3 SECONDS (26.8-37.9)
[2017-06-03 13:07] LABS: LACTIC ACID SEPSIS PROTOCOL 4.8 MMOL/L (0.4-2.0)
[2017-06-03] MEDS ORDERED: GLUCOSE 4 GM CHEW TABLET PO (15:15)
[2017-06-03] MEDS ORDERED: GLUCAGON FOR INJ 1 MG VIAL (J1610) SC (15:15)
[2017-06-03] MEDS ORDERED: MORPHINE 2 MG/ML 1ML SYRINGE IV (15:15)
[2017-06-03] MEDS ORDERED: DEXTROSE 50% 50 ML SYRINGE IV (15:15)
[2017-06-03] MEDS ORDERED: ONDANSETRON 4MG/2ML VIAL (J2405) IV (15:15)
[2017-06-03 15:55] LABS: ESTIMATED AVERAGE GLUCOSE 123 MG/DL (60-110); HEMOGLOBIN A1c 5.9 %
[2017-06-03 15:57] LABS: CPK CREATINE PHOSPHOKINASE 201 U/L (39-308); FREE THYROXINE INDEX 2.6 % (1.4-3.8); MAGNESIUM LEVEL 2.1 MG/DL (1.8-2.4); T UPTAKE 32 % (33-40); THYROXINE (T4) 8.1 UG/DL (4.5-12.0); TROPONIN I < 0.02 NG/ML (< 0.10)
[2017-06-03 16:03] LABS: CK-MB VALUE MASS 2.7 NG/ML (0.0-3.6); MB/CK RELATIVE INDEX 1.34 (< OR =4); THYROID STIMULATING HORMONE 0.448 uIU/ML (0.358-3.740)
[2017-06-03] MEDS ORDERED: PROHANCE 279.3MG/ML 15ML VIAL (A9576) As Ordered (16:10)
[2017-06-03] MEDS ORDERED: HumaLOG INSULIN (NovoLOG) PER UNIT SC ×2 (17:30→21:00)
[2017-06-03] MEDS: POTASSIUM CHLORIDE 10 MEQ SR TABLET PO (18:24)
[2017-06-03 18:29] LABS: BEDSIDE GLUCOSE 160 MG/DL (80-115)
[2017-06-03] MEDS: HumaLOG INSULIN (NovoLOG) PER UNIT SC (21:00)
[2017-06-03] MEDS: SENOKOT S TAB PO (21:00)
[2017-06-03] MEDS: FERROUS SULFATE 325MG TAB PO (21:13)
[2017-06-03 21:17] LABS: BEDSIDE GLUCOSE 121 MG/DL (80-115)
[2017-06-03 21:49] LABS: CK-MB VALUE MASS 9.5 NG/ML (0.0-3.6); CPK CREATINE PHOSPHOKINASE 559 U/L (39-308); MB/CK RELATIVE INDEX 1.69 (< OR =4); TROPONIN I < 0.02 NG/ML (< 0.10)
[2017-06-04 07:22] LABS: BEDSIDE GLUCOSE 116 MG/DL (80-115)
[2017-06-04] MEDS: HumaLOG INSULIN (NovoLOG) PER UNIT SC ×4 (07:30→20:47)
[2017-06-04] MEDS: PANTOPRAZOLE 40MG TAB (PROTONIX) PO (08:45)
[2017-06-04] MEDS: SENOKOT S TAB PO ×3 (08:45→20:47)
[2017-06-04] MEDS: ATORVASTATIN 20 MG TAB PO (08:45)
[2017-06-04] MEDS: ENOXAPARIN 40 MG/0.4 ML SYRINGE (J1650) SC (08:45)
[2017-06-04] MEDS: ASPIRIN 81 MG ENTERIC TAB PO (08:45)
[2017-06-04] MEDS: FERROUS SULFATE 325MG TAB PO ×2 (08:45→20:47)
[2017-06-04 08:51] LABS: HEMATOCRIT 39.3 % (42.0-52.0); HEMOGLOBIN 12.9 g/dl (14.0-18.0); MEAN CORPUSCULAR HEMOGLOBIN 28.6 pg (27.0-33.0); MEAN CORPUSCULAR HGB CONC 32.8 g/dl (32.0-36.5); MEAN CORPUSCULAR VOLUME 87.1 fl (80.0-96.0); PLATELET COUNT, AUTOMATED 208 10^3/uL (150-450); RED BLOOD COUNT 4.51 10^6/uL (4.30-6.10); RED CELL DISTRIBUTION WIDTH 15.6 % (11.5-14.5); WHITE BLOOD COUNT 7.2 10^3/uL (4.0-10.0)
[2017-06-04 09:16] LABS: ALBUMIN 3.9 GM/DL (3.2-5.2); ALBUMIN/GLOBULIN RATIO 1.39 (1.00-1.93); ALKALINE PHOSPHATASE 93 U/L (45-117); ALT/SGPT 36 U/L (12-78); ANION GAP 7 MEQ/L (8-16); AST/SGOT 42 U/L (7-37); BILIRUBIN,TOTAL 0.4 MG/DL (0.2-1.0); BLOOD UREA NITROGEN 9 MG/DL (7-18); CALCIUM LEVEL 8.6 MG/DL (8.8-10.2); CARBON DIOXIDE LEVEL 26 MEQ/L (21-32); CHLORIDE LEVEL 109 MEQ/L (98-107); CREATININE FOR GFR 0.88 MG/DL (0.70-1.30); GLOMERULAR FILTRATION RATE > 60.0 (>49); GLUCOSE, FASTING 108 MG/DL (80-110); MAGNESIUM LEVEL 2.3 MG/DL (1.8-2.4); POTASSIUM SERUM 4.2 MEQ/L (3.5-5.1); SODIUM LEVEL 142 MEQ/L (136-145); TOTAL PROTEIN 6.7 GM/DL (6.4-8.2)
[2017-06-04 12:06] LABS: BEDSIDE GLUCOSE 91 MG/DL (80-115)
[2017-06-04 17:27] LABS: BEDSIDE GLUCOSE 142 MG/DL (80-115)
[2017-06-04 20:51] LABS: BEDSIDE GLUCOSE 118 MG/DL (80-115)
[2017-06-05 04:34] LABS: HEMATOCRIT 37.1 % (42.0-52.0); HEMOGLOBIN 12.2 g/dl (14.0-18.0); MEAN CORPUSCULAR HEMOGLOBIN 28.3 pg (27.0-33.0); MEAN CORPUSCULAR HGB CONC 32.9 g/dl (32.0-36.5); MEAN CORPUSCULAR VOLUME 86.1 fl (80.0-96.0); PLATELET COUNT, AUTOMATED 198 10^3/uL (150-450); RED BLOOD COUNT 4.31 10^6/uL (4.30-6.10); RED CELL DISTRIBUTION WIDTH 15.1 % (11.5-14.5); WHITE BLOOD COUNT 7.1 10^3/uL (4.0-10.0)
[2017-06-05 04:57] LABS: ALBUMIN 3.4 GM/DL (3.2-5.2); ALBUMIN/GLOBULIN RATIO 1.17 (1.00-1.93); ALKALINE PHOSPHATASE 79 U/L (45-117); ALT/SGPT 32 U/L (12-78); ANION GAP 7 MEQ/L (8-16); AST/SGOT 32 U/L (7-37); BILIRUBIN,TOTAL 0.2 MG/DL (0.2-1.0); BLOOD UREA NITROGEN 15 MG/DL (7-18); CALCIUM LEVEL 8.3 MG/DL (8.8-10.2); CARBON DIOXIDE LEVEL 27 MEQ/L (21-32); CHLORIDE LEVEL 109 MEQ/L (98-107); CREATININE FOR GFR 0.83 MG/DL (0.70-1.30); GLOMERULAR FILTRATION RATE > 60.0 (>49); GLUCOSE, FASTING 118 MG/DL (80-110); MAGNESIUM LEVEL 2.1 MG/DL (1.8-2.4); POTASSIUM SERUM 3.8 MEQ/L (3.5-5.1); SODIUM LEVEL 143 MEQ/L (136-145); TOTAL PROTEIN 6.3 GM/DL (6.4-8.2)
[2017-06-05] MEDS: FERROUS SULFATE 325MG TAB PO (08:34)
[2017-06-05] MEDS: HumaLOG INSULIN (NovoLOG) PER UNIT SC (08:34)
[2017-06-05] MEDS: ATORVASTATIN 20 MG TAB PO (08:34)
[2017-06-05] MEDS: PANTOPRAZOLE 40MG TAB (PROTONIX) PO (08:34)
[2017-06-05] MEDS: ASPIRIN 81 MG ENTERIC TAB PO (08:34)
[2017-06-05] MEDS: SENOKOT S TAB PO (08:34)
[2017-06-05] MEDS: ENOXAPARIN 40 MG/0.4 ML SYRINGE (J1650) SC (08:34)
== END 2017-06-05 10:55 | disposition home or self-care (01) | DRG 204 ==
LOC: M ED 11:32 → M ED INP 16:11 → M ICU 17:25
DX: R55 Syncope and collapse (principal); E11.9 Type 2 diabetes mellitus without complications; E78.5 Hyperlipidemia, unspecified; K21.9 Gastro-esophageal reflux disease without esophagitis; I25.10 Atherosclerotic heart disease of native coronary artery without angina pectoris; Z90.49 Acquired absence of other specified parts of digestive tract; Z87.891 Personal history of nicotine dependence; Z79.82 Long term (current) use of aspirin; Z79.84 Long term (current) use of oral hypoglycemic drugs; Z79.899 Other long term (current) drug therapy

== ENCOUNTER → 2017-06-15 | Outpatient (REF) | payer OTHER, MEDICARE ==
[2017-06-15 13:49] LABS: CARCINOEMBRYONIC ANTIGEN 10.3 NG/ML (<2.5)
[2017-06-15 13:58] LABS: INR 0.95; PARTIAL THROMBOPLASTIN TIME 28.5 SECONDS (26.8-37.9); PROTHROMBIN TIME 12.8 SECONDS (12.4-14.5)
== END ==
LOC: M LAB REF 12:47
DX: C18.9 Malignant neoplasm of colon, unspecified (principal)
CPT/HCPCS: 82378

== ENCOUNTER → 2017-06-25 | Outpatient (CLI) | payer OTHER, MEDICARE ==
[~2017-06-25] MED LIST changes: -GLYCOPYRROLATE INJ 0.2 MG/ML 2 ML VIAL As Ordered; -HYDROmorphone HCL 2 MG/ML 1ML VIAL (J1170) As Ordered; -LIDOCAINE 2% INJ 100 MG/5 ML SDV (FOR ANES.) As Ordered; -LIDOCAINE 2% JELLY 30 ML As Ordered; +LIDOCAINE 2% MDV 20 ML VIAL As Ordered; -MIDAZOLAM INJ 2 MG/2 ML VIAL (J2250) As Ordered; -NEOSTIGMINE 10 MG/10 ML VIAL (J2710) As Ordered; -ONDANSETRON 4MG/2ML VIAL (J2405) As Ordered; -PROPOFOL 200 MG/20 ML VIAL As Ordered; -ROCURONIUM BROMIDE 50 MG/5 ML VIAL As Ordered; +ceFAZolin 1GM INJ (J0690 PER 500MG) As Ordered; -fentaNYL 100 MCG/2 ML INJECTION (J3010) As Ordered
== END | disposition home or self-care (01) ==
LOC: M IRPRO 12:43
DX: C18.9 Malignant neoplasm of colon, unspecified (principal)
CPT/HCPCS: 36561

== ENCOUNTER → 2017-09-05 | Outpatient (CLI) | payer OTHER ==
[2017-09-05 18:28] LABS: ESTIMATED AVERAGE GLUCOSE 154 MG/DL (60-110)
== END ==
LOC: M WUC 12:01
DX: E11.9 Type 2 diabetes mellitus without complications (principal)
CPT/HCPCS: 83036

== ENCOUNTER → 2017-09-29 | Outpatient (REF) | payer OTHER | LOC: M LAB REF 13:35 | DX: C18.2 Malignant neoplasm of ascending colon (principal) ==

== ENCOUNTER → 2017-11-23 | Outpatient (CLI) | payer OTHER | LOC: M RAD 16:05 | DX: M51.36 Other intervertebral disc degeneration, lumbar region (principal); M51.37 Other intervertebral disc degeneration, lumbosacral region; M12.88 Other specific arthropathies, not elsewhere classified, other specified site; M54.5 Low back pain | CPT/HCPCS: 71101 ==

== ENCOUNTER → 2018-02-15 | Outpatient (CLI) | payer OTHER ==
[2018-02-15 12:33] LABS: ALBUMIN 4.3 GM/DL (3.2-5.2); ANION GAP 5 MEQ/L (8-16); BLOOD UREA NITROGEN 16 MG/DL (7-18); CALCIUM LEVEL 8.8 MG/DL (8.8-10.2); CARBON DIOXIDE LEVEL 33 MEQ/L (21-32); CHLORIDE LEVEL 105 MEQ/L (98-107); CREATININE FOR GFR 0.96 MG/DL (0.70-1.30); GLOMERULAR FILTRATION RATE > 60.0 (>49); GLUCOSE, FASTING 114 MG/DL (70-100); POTASSIUM SERUM 4.3 MEQ/L (3.5-5.1); SODIUM LEVEL 143 MEQ/L (136-145)
== END ==
LOC: M WUC 09:51
DX: I10 Essential (primary) hypertension (principal)

== ENCOUNTER → 2018-04-04 | Outpatient (CLI) | payer OTHER | LOC: M RAD 10:55 | DX: C18.9 Malignant neoplasm of colon, unspecified (principal); K80.00 Calculus of gallbladder with acute cholecystitis without obstruction; Z90.49 Acquired absence of other specified parts of digestive tract | CPT/HCPCS: 74176 ==

== ENCOUNTER → 2018-04-14 | Outpatient (CLI) | payer OTHER ==
[2018-04-14 10:17] LABS: BASO % 0.3 % (0.0-1.0); EOS # 0.1 10^3/uL (0.0-0.50); EOS % 1.2 % (0.0-3.0); HEMATOCRIT 42.5 % (42.0-52.0); HEMOGLOBIN 14.3 g/dl (13.5-17.5); IMMATURE GRANULOCYTE % 0.7 % (0-3.0); LYMPH # 2.4 10^3/uL (1.5-4.5); LYMPH % 35.6 % (24.0-44.0); MEAN CORPUSCULAR HGB CONC 33.6 g/dl (32.0-36.5); MEAN CORPUSCULAR VOLUME 92.2 fl (80.0-96.0); MONO # 0.6 10^3/uL (0.0-0.8); MONO % 9.1 % (0.0-5.0); NEUTROPHILS # 3.6 10^3/uL (1.8-7.7); NEUTROPHILS % 53.1 % (36.0-66.0); PLATELET COUNT, AUTOMATED 239 10^3/uL (150-450); RED BLOOD COUNT 4.61 10^6/uL (4.30-6.10); RED CELL DISTRIBUTION WIDTH 13.5 % (11.5-14.5); WHITE BLOOD COUNT 6.7 10^3/uL (4.0-10.0)
[2018-04-14 10:35] LABS: ALBUMIN 4.4 GM/DL (3.2-5.2); ALBUMIN/GLOBULIN RATIO 1.57 (1.00-1.93); ALKALINE PHOSPHATASE 96 U/L (45-117); ALT/SGPT 39 U/L (12-78); ANION GAP 6 MEQ/L (8-16); AST/SGOT 22 U/L (7-37); BILIRUBIN,TOTAL 0.5 MG/DL (0.2-1.0); BLOOD UREA NITROGEN 29 MG/DL (7-18); CALCIUM LEVEL 9.5 MG/DL (8.8-10.2); CARBON DIOXIDE LEVEL 31 MEQ/L (21-32); CHLORIDE LEVEL 104 MEQ/L (98-107); CHOLESTEROL LEVEL 146 MG/DL (<200); CHOLESTEROL RISK RATIO 3.173 (<5); CREATININE FOR GFR 1.14 MG/DL (0.70-1.30); GLOMERULAR FILTRATION RATE > 60.0 (>49); GLUCOSE, FASTING 117 MG/DL (70-100); HDL CHOLESTEROL 46 MG/DL (>40); IRON (FE) 99 UG/DL (65-175); LDL CHOLESTEROL 77 MG/DL (<100); NON-HDL-C 100 MG/DL; POTASSIUM SERUM 5.3 MEQ/L (3.5-5.1); SODIUM LEVEL 141 MEQ/L (136-145); TOTAL PROTEIN 7.2 GM/DL (6.4-8.2); TRIGLYCERIDES LEVEL 113 MG/DL (<150)
[2018-04-14 11:07] LABS: ESTIMATED AVERAGE GLUCOSE 146 MG/DL (60-110); HEMOGLOBIN A1c 6.7 %
== END ==
LOC: M WUC 08:31
DX: E78.5 Hyperlipidemia, unspecified (principal); D50.9 Iron deficiency anemia, unspecified; E11.9 Type 2 diabetes mellitus without complications
CPT/HCPCS: 83540

== ENCOUNTER → 2018-04-26 | Outpatient (CLI) | payer OTHER | LOC: M WUC 11:24 | DX: Z12.5 Encounter for screening for malignant neoplasm of prostate (principal) | CPT/HCPCS: 84154 ==

== ENCOUNTER → 2018-08-24 | Outpatient (CLI) | payer OTHER ==
[~2018-08-24] MED LIST changes: +ASPI81TA26 PO; +ATOR40TA75 PO; +CHLO125TA PO; +GASTROGRAFIN SOLUTION 30ML (Q9963) As Ordered ONE; +GLYB125TA PO; +IRON65TA PO; +ISOVUE-370 76% 100ML VIAL (Q9967) As Ordered ONE; -LIDOCAINE 2% MDV 20 ML VIAL As Ordered; +LISI10TA4 PO; +METF500T13 PO; +MULTCAP PO; +NEXI40CA PO; -ceFAZolin 1GM INJ (J0690 PER 500MG) As Ordered
--- NOTE | 2018-08-25 04:32 | REP ---
Clinical: History of colon cancer with rising CEA levels. Technique: Axial contrast enhanced images from the lung bases to the pubic symphysis using oral (per protocol) and 100 ml Isovue 370 intravenous contrast material with precontrast and delayed images of the abdomen as well as coronal and sagittal re-formations. Comparison: 04/04/2018 Findings: The lung bases are clear. A 1 mm calcified granuloma in the left lower lobe remains stable. Visualized portions of the heart and pericardium are normal. Liver, spleen, pancreas, bilateral adrenal glands and kidneys are normal. Gallbladder includes small gallstones without evidence for acute cholecystitis. Evaluation of the enteric system demonstrates small hiatal hernia. The small and large bowel is without obstruction or acute inflammatory process. No focal bowel mass lesion is identified. Area of prior resection and anastomoses in the right mid abdomen appears unremarkable. Evaluation of the pelvis demonstrates normal bladder and age-appropriate prostate/seminal vesicles. No pelvic fluid. No ascites. No obvious intraperitoneal or retroperitoneal adenopathy. Atherosclerotic changes of the aorta noted without aneurysm or dissection. Musculoskeletal structures demonstrate age-related changes without focal osseous abnormality. Impression: 1. Cholelithiasis. 2. Small hiatal hernia. 3. No further acute abdominopelvic pathology appreciated. Specifically, no ascites, adenopathy, or focal inflammatory changes. 4. No evidence for recurrence or metastatic disease. Electronically Signed by Donny Christensen MD 08/25/2018 04:23 A
== END ==
LOC: M RAD 08:49
PROVIDERS: ATTEND Internal Medicine Hematology & Oncology
DX: R97.0 Elevated carcinoembryonic antigen [CEA] (principal); K44.9 Diaphragmatic hernia without obstruction or gangrene; Z90.49 Acquired absence of other specified parts of digestive tract; K80.20 Calculus of gallbladder without cholecystitis without obstruction; Z85.038 Personal history of other malignant neoplasm of large intestine
CPT/HCPCS: 74178; Q9963; Q9967

== ENCOUNTER → 2018-09-07 | Outpatient (CLI) | payer OTHER ==
[~2018-09-07] MED LIST changes: -GASTROGRAFIN SOLUTION 30ML (Q9963) As Ordered ONE; -ISOVUE-370 76% 100ML VIAL (Q9967) As Ordered ONE
[2018-09-07 12:50] LABS: BASO % 0.6 % (0.0-1.0); EOS # 0.1 10^3/uL (0.0-0.50); EOS % 0.9 % (0.0-3.0); HEMATOCRIT 41.4 % (42.0-52.0); HEMOGLOBIN 14.1 g/dl (13.5-17.5); LYMPH % 29.3 % (24.0-44.0); MEAN CORPUSCULAR HEMOGLOBIN 31.5 pg (27.0-33.0); MEAN CORPUSCULAR HGB CONC 34.1 g/dl (32.0-36.5); MEAN CORPUSCULAR VOLUME 92.4 fl (80.0-96.0); MONO # 0.6 10^3/uL (0.0-0.8); MONO % 8.4 % (0.0-5.0); NEUTROPHILS % 60.5 % (36.0-66.0); PLATELET COUNT, AUTOMATED 225 10^3/uL (150-450); RED BLOOD COUNT 4.48 10^6/uL (4.30-6.10); WHITE BLOOD COUNT 6.7 10^3/uL (4.0-10.0)
[2018-09-07 12:55] LABS: ALT/SGPT 38 U/L (12-78); BILIRUBIN,TOTAL 0.6 MG/DL (0.2-1.0); BLOOD UREA NITROGEN 20 MG/DL (7-18); CALCIUM LEVEL 8.7 MG/DL (8.8-10.2); CARBON DIOXIDE LEVEL 30 MEQ/L (21-32); CHLORIDE LEVEL 100 MEQ/L (98-107); CHOLESTEROL LEVEL 131 MG/DL (<200); CHOLESTEROL RISK RATIO 3.358 (<5); CREATININE FOR GFR 1.23 MG/DL (0.70-1.30); GLOMERULAR FILTRATION RATE > 60.0 (>49); GLUCOSE, FASTING 109 MG/DL (70-100); HDL CHOLESTEROL 39 MG/DL (>40); IRON (FE) 88 UG/DL (65-175); LDL CHOLESTEROL 71 MG/DL (<100); NON-HDL-C 92 MG/DL; POTASSIUM SERUM 4.9 MEQ/L (3.5-5.1); SODIUM LEVEL 137 MEQ/L (136-145); TOTAL PROTEIN 6.9 GM/DL (6.4-8.2); TRIGLYCERIDES LEVEL 103 MG/DL (<150)
== END ==
LOC: M WUC 09:28
PROVIDERS: ATTEND Nurse Practitioner Family
DX: I10 Essential (primary) hypertension (principal); D50.9 Iron deficiency anemia, unspecified; E11.9 Type 2 diabetes mellitus without complications; E78.5 Hyperlipidemia, unspecified

== ENCOUNTER → 2018-09-07 | Outpatient (CLI) | payer OTHER ==
[~2018-09-07] MED LIST changes: +ISOVUE-370 76% 100ML VIAL (Q9967) As Ordered ONE
--- NOTE | 2018-09-07 12:49 | REP ---
CT CHEST WITH IV CONTRAST: HISTORY: Rising CEA. History of colon cancer. COMPARISON: Chest CT study June 03, 2017. CT CONTRAST DOSE: 75 mL of intravenous Isovue 370. CHEST CT FINDINGS: Digital preliminary professional sports scout radiograph demonstrates a right-sided Myetth-B-Zcaj catheter. There is no evidence of hilar or mediastinal adenopathy. No pleural or pericardial effusion is seen. No adrenal lesion is observed on either side. There are gallstones in the gallbladder. No mediastinal vascular abnormality is seen other than some mild vascular calcification in the aorta. No bony abnormality is seen. Evaluation of the lung parenchyma however demonstrates multiple new bilateral lower lobe, right middle lobe pulmonary nodules consistent with metastatic lesions. There are also calcified granulomatous nodules, one in the left lower lobe and the other in the right middle lobe which are unchanged. The largest soft tissue nodule is a peribronchovascular nodule seen in the right lower lobe on page 65 of 116 in series 201 of today's study. This measures 8 mm in greatest diameter. There are two metastatic nodules in the left lower lobe, one in the anterior segment of the right upper lobe just above the minor fissure, one in the right middle lobe, and two in the right lower lobe. A small sliding-type hiatal hernia is also noted. IMPRESSION: New pulmonary nodules bilaterally consistent with pulmonary metastases. Electronically Signed by Alden Chaney MD 09/07/2018 03:59 P
== END ==
LOC: M RAD 08:56
PROVIDERS: ATTEND Internal Medicine Hematology & Oncology
DX: C18.9 Malignant neoplasm of colon, unspecified (principal); R91.8 Other nonspecific abnormal finding of lung field; K44.9 Diaphragmatic hernia without obstruction or gangrene
CPT/HCPCS: 71260; Q9967

== ENCOUNTER → 2018-09-27 | Outpatient (CLI) | payer OTHER ==
[~2018-09-27] MED LIST changes: -ISOVUE-370 76% 100ML VIAL (Q9967) As Ordered ONE
--- NOTE | 2018-09-28 08:51 | REP ---
PET/CT: History: Restaging colon cancer with metastasis to the lung. Comparisons: Comparison CT chest September 07, 2018. Comparison CT abdomen and pelvis August 24, 2018. TECHNIQUE: 51 minutes following the intravenous injection of a 10.17 mCi dose of F-18 FDG, three-dimensional PET scintigraphy is acquired from the skull base to the proximal thighs. Triplanar noncontrast CT scanning is acquired through the same anatomic range for attenuation correction, and image registration with scan parameters optimized to minimize radiation exposure to the patient. PET scintigraphy and CT datasets were fused and displayed on a workstation with multiplanar and projection display capability. PET/CT Findings: No abnormal hypermetabolic focus is seen in the head and neck soft tissues. A right-sided Ejytcw-A-Ervz catheter is noted. Incidental findings also include gallstones and postoperative changes in the abdomen. There are multiple metastatic pulmonary nodules. These show FDG accumulation. There is a mildly hypermetabolic uptake in the left lower lobe with maximum standard uptake value 2.51. There is a mildly hypermetabolic nodule in the right lung with maximum standard uptake value 3.37. Several other pulmonary nodules bilaterally show visible but non hypermetabolic range SUV values. There is a mildly hypermetabolic focus in each hilus, 3.98 on the right and 4.16 on the left. No definitely enlarged lymph node is seen here. These are equivocal. There is a focus of hypermetabolic uptake in the left lobe of the liver with a small low density area corresponding to this 1-1/2 cm in diameter. Maximum standard uptake value 6.48. There is an equivocal focus of increased FDG accumulation in the caudate lobe of the liver with maximum SUV value 3.69. A visually there is a focus of slightly increased uptake in the right lobe of the liver although this is not significantly over background activity, 3.63. Impression: There is evidence of metastatic pulmonary and hepatic disease. Equivocal foci of uptake are also noted in the liver and in each hilus. Electronically Signed by Alden Chaney MD 09/28/2018 01:38 P
== END ==
LOC: M PLARAD 11:18
PROVIDERS: ATTEND Internal Medicine Hematology & Oncology
DX: R91.8 Other nonspecific abnormal finding of lung field (principal); R93.2 Abnormal findings on diagnostic imaging of liver and biliary tract; C18.2 Malignant neoplasm of ascending colon
CPT/HCPCS: 78815; A9552

== ENCOUNTER → 2019-01-10 | Outpatient (CLI) | payer OTHER ==
[~2019-01-10] MED LIST changes: +GASTROGRAFIN SOLUTION 30ML (Q9963) As Ordered ONE; +ISOVUE-370 76% 100ML VIAL (Q9967) As Ordered ONE; +PROC2.5C TOP
--- NOTE | 2019-01-11 12:02 | REP ---
Clinical: Colon cancer for restaging. Technique: Axial contrast enhanced images from the thoracic inlet to the upper abdomen with coronal and sagittal re-formations using 100 ml Isovue 370 intravenous contrast material. Comparison: 09/07/2018. Findings: The previously identified bilateral pulmonary metastatic foci are again noted but appear considerably less dense and mildly decreased in size suggesting effective treatment. No new or increasing pulmonary metastatic foci, nodule or mass lesion is appreciated. No consolidation. No effusion. No pneumothorax. Tracheobronchial tree is patent. Mediastinal and hilar lymph nodes measuring up to approximately 12 mm are unchanged. Small hiatal hernia identified at the gastroesophageal junction. Pulmonary vasculature and thoracic aorta appear relatively normal. No cardiomegaly. No pericardial effusion. Musculoskeletal structures are intact without focal osseous abnormality. Adrenal glands appear normal. Cholelithiasis. Impression: 1. Previously noted bilateral pulmonary metastatic foci have decreased in size and density suggesting effective treatment. No new or increased lesions noted. Electronically Signed by Donny Christensen MD 01/11/2019 06:04 A
--- NOTE | 2019-01-11 12:03 | REP ---
Clinical: Colon cancer for restaging. Technique: Axial contrast enhanced images from the lung bases to the pubic symphysis using oral and intravenous contrast material with coronal and sagittal re-formations as well as delayed images of the abdomen. Comparison: 08/24/2018. Findings: The hypermetabolic focus identified on recent PET CT dated 09/27/2018 may correspond to a vague subtle small hypodense area within the left hepatic lobe (image 13). No further obvious hepatic lesions are identified by current CT. Spleen, pancreas, bilateral adrenal glands and kidneys are normal. Cholelithiasis noted without definite acute cholecystitis. The enteric system is without obstruction or obvious acute inflammatory process. Pelvis demonstrates normal bladder. Prostate gland is enlarged measuring approximately 4.5 cm maximal transverse diameter. No ascites. No free air. No obvious adenopathy. Atherosclerotic changes to the aorta and vasculature without aneurysm or dissection. Musculoskeletal structures demonstrate degenerative changes without significant focal abnormality. Impression: 1. Very subtle vague hypodense area within the lateral left hepatic lobe may correspond to the hypermetabolic focus on recent PET CT. No further hepatic lesions are identified. 2. No further evidence for abdominopelvic metastatic disease or recurrence. No adenopathy. No effusion. 3. Enlarged prostate gland. Electronically Signed by Donny Christensen MD 01/11/2019 06:11 A
== END ==
LOC: M RAD 08:29
PROVIDERS: ATTEND Internal Medicine Hematology & Oncology
DX: C18.2 Malignant neoplasm of ascending colon (principal); C78.00 Secondary malignant neoplasm of unspecified lung; K44.9 Diaphragmatic hernia without obstruction or gangrene; K80.20 Calculus of gallbladder without cholecystitis without obstruction
CPT/HCPCS: 71260; 74177; Q9963; Q9967

== ENCOUNTER 2019-03-01 05:13 | Emergency (ER) | payer OTHER ==
[~2019-03-01] VITALS: Ht 167.6 cm; Wt 65.9 kg
[~2019-03-01 05:13] MED LIST changes: -GASTROGRAFIN SOLUTION 30ML (Q9963) As Ordered ONE; -ISOVUE-370 76% 100ML VIAL (Q9967) As Ordered ONE
[2019-03-01] MEDS ORDERED: NS 1,000 ML IV SCH (05:28)
[2019-03-01] MEDS ORDERED: MORPHINE 4 MG/ML 1ML VIAL/SYRINGE (J2270) IV ONE (05:30)
[2019-03-01] MEDS ORDERED: ONDANSETRON 4MG/2ML VIAL (J2405) IV ONE (05:30)
[2019-03-01 05:54] LABS: BASO % 0.3 % (0.0-1.0); EOS % 0.3 % (0.0-3.0); HEMATOCRIT 44.6 % (42.0-52.0); HEMOGLOBIN 15.2 g/dl (13.5-17.5); LYMPH # 1.5 10^3/uL (1.5-5.0); LYMPH % 15.1 % (24.0-44.0); MEAN CORPUSCULAR HEMOGLOBIN 33.9 pg (27.0-33.0); MEAN CORPUSCULAR HGB CONC 34.1 g/dl (32.0-36.5); MEAN CORPUSCULAR VOLUME 99.6 fl (80.0-96.0); MONO # 0.7 10^3/uL (0.0-0.8); MONO % 7.1 % (0.0-5.0); NEUTROPHILS # 7.5 10^3/uL (1.5-8.5); NEUTROPHILS % 76.9 % (36.0-66.0); PLATELET COUNT, AUTOMATED 239 10^3/uL (150-450); RED BLOOD COUNT 4.48 10^6/uL (4.30-6.10); WHITE BLOOD COUNT 9.8 10^3/uL (4.0-10.0)
[2019-03-01 06:25] LABS: ALBUMIN 3.9 GM/DL (3.2-5.2); ALT/SGPT 33 U/L (12-78); BILIRUBIN,DIRECT 0.2 MG/DL (0.0-0.2); BILIRUBIN,TOTAL 0.5 MG/DL (0.2-1.0); BLOOD UREA NITROGEN 14 MG/DL (7-18); CALCIUM LEVEL 9.5 MG/DL (8.8-10.2); CARBON DIOXIDE LEVEL 26 MEQ/L (21-32); CHLORIDE LEVEL 104 MEQ/L (98-107); CREATININE FOR GFR 1.14 MG/DL (0.70-1.30); GLOMERULAR FILTRATION RATE > 60.0 (>42); GLUCOSE, FASTING 154 MG/DL (70-100); LIPASE 103 U/L (73-393); POTASSIUM SERUM 4.2 MEQ/L (3.5-5.1); SODIUM LEVEL 138 MEQ/L (136-145); TOTAL PROTEIN 7.3 GM/DL (6.4-8.2)
[2019-03-01] MEDS: GASTROGRAFIN SOLUTION 30ML PO SCH ×2 (06:58→07:18)
[2019-03-01] MEDS ORDERED: ISOVUE-370 76% 100ML VIAL (Q9967) As Ordered ONE (08:19)
--- NOTE | 2019-03-01 08:58 | REP ---
CT abdomen and pelvis with IV and oral contrast: History: Epigastric abdominal pain. Elevated lactate. The patient gives a history of primary colon carcinoma. Comparison CT study January 10, 2019. CT contrast dose: 100 ml of intravenous Isovue 370. CT findings: Preliminary digital advertising account manager radiograph demonstrates clips in the right mid abdomen. Bowel gas pattern is normal. The lung bases demonstrate multiple pulmonary nodules. There are two subcentimeter nodules in the left lower lobe at the uppermost portion of the imaging field of view each of which measures 5 mm. There is a calcified granuloma lower down in the left lower lobe which is benign. One of the nodules in the left lower lobe appears centrally cavitary. There is a possible nodule in the right lower lobe at the upper most slice, incompletely seen, approximately 5 mm in diameter. Were visible on chest CT January 10, 2019. No new nodule. The liver and the spleen are normal in size homogeneous in texture. There is mild diffuse fatty infiltration of the liver. There is a small low density lesion in the left lobe again noted unchanged from the comparison study measuring 1.1 cm in diameter. No other focal lesion is seen in the liver. Cholelithiasis is noted with mild heterogeneous enhancement the gallbladder wall. No adrenal lesion is observed. No pancreatic lesion is seen. There are two punctate calcifications in the head of the pancreas adjacent to the distal CBD. The kidneys enhance symmetrically are morphologically intact. No retroperitoneal mass or adenopathy is seen. Normal caliber aorta. The patient is status post partial right colectomy and ileocolonic anastomosis. No colonic mass lesion is observed. Seminal vesicles prostate and urinary bladder are unremarkable. No pelvic adenopathy is seen. No bony destructive lesion is observed. Impression: Known pulmonary metastatic nodules again seen in the lung bases. There is a stable 1.1 cm low density lesion in the left lobe of the liver unchanged from January 10, 2019. Cholelithiasis is again noted. Postoperative changes in the abdomen status post partial right colectomy. Electronically Signed by Alden Chaney MD 03/01/2019 01:42 P
--- NOTE | 2019-03-01 10:17 | REP ---
Right upper quadrant sonography: History: Rule out cholecystitis. Findings: Scanning through the right upper quadrant of the abdomen demonstrates shadowing calculi in the gallbladder lumen. Gallbladder is distended, up to 9.3 cm in greatest diameter. Its wall is thickened, just over 3 mm and somewhat echogenic. No pericholecystic fluid. Common bile duct is normal measuring 0.3 cm in greatest diameter. No focal liver lesion is seen. Increased hepatic echogenicity may reflect fatty infiltration. The pancreas is obscured by abdominal gas. No right renal abnormality is seen. No ascites is noted. The right kidney measures 9.3 x 5.0 x 5.6 cm. Impression: Shadowing calculi in the distended gallbladder. There is mild gallbladder wall thickening. No pericholecystic fluid. Electronically Signed by Alden Chaney MD 03/01/2019 01:43 P
[2019-03-01 12:02] VITALS: BP 158/92
== END 2019-03-01 12:09 | disposition home or self-care (01) ==
LOC: M ED 05:13
DX: K80.70 Calculus of gallbladder and bile duct without cholecystitis without obstruction (principal); E11.9 Type 2 diabetes mellitus without complications; I10 Essential (primary) hypertension; E78.5 Hyperlipidemia, unspecified; C18.9 Malignant neoplasm of colon, unspecified; C78.00 Secondary malignant neoplasm of unspecified lung; K21.9 Gastro-esophageal reflux disease without esophagitis; F17.210 Nicotine dependence, cigarettes, uncomplicated
CPT/HCPCS: 74177; 76705; 80048; 80076; 83605; 83690; 85025; 93041; 96374; 96375; 99285; J2270; J2405; Q9963; Q9967

== ENCOUNTER 2019-08-03 09:43 | Inpatient (IN) | payer OTHER, MEDICARE ==
[~2019-08-03] VITALS: Ht 167.6 cm; Wt 59.3 kg
[~2019-08-03 09:43] MED LIST changes: +XELO1TAB PO
[2019-08-03 10:57] LABS: HEMATOCRIT 47.6 % (42.0-52.0); HEMOGLOBIN 16.6 g/dl (13.5-17.5); MEAN CORPUSCULAR HGB CONC 34.9 g/dl (32.0-36.5); PLATELET COUNT, AUTOMATED 105 10^3/uL (150-450); RED BLOOD COUNT 5.35 10^6/uL (4.30-6.10); WHITE BLOOD COUNT 4.9 10^3/uL (4.0-10.0)
[2019-08-03] MEDS ORDERED: NS 1,000 ML IV ONE (11:15)
[2019-08-03] MEDS ORDERED: ONDANSETRON 4MG/2ML VIAL (J2405) IV ONE (11:15)
[2019-08-03 11:16] LABS: ALBUMIN 3.5 GM/DL (3.2-5.2); BILIRUBIN,DIRECT 0.4 MG/DL (0.0-0.2); TOTAL PROTEIN 6.4 GM/DL (6.4-8.2)
[2019-08-03 11:17] LABS: LYMPHOCYTES 31 % (16-44); NEUTROPHILS 68 % (28-66); NUCLEATED RED BLOOD CELL 3 % (0-0); PLATELET ESTIMATE NORMAL (NORMAL)
[2019-08-03] MEDS: NS 1,000 ML IV SCH ×3 (11:19→20:34)
[2019-08-03] MEDS ORDERED: PIPERACILLIN/TAZOBACTAM SOD 4.5 GM in D5W MINI-BAG PLUS 50 ML IV ONE (14:00)
[2019-08-03] MEDS ORDERED: CHLO25TA PO (14:33)
[2019-08-03] MEDS: GASTROGRAFIN SOLUTION 30ML PO SCH ×2 (15:00→15:23)
--- NOTE | 2019-08-03 15:04 | HPEPDOC ---
[facility] Medical History & Physical Date of Admission Aug 03, 2019 Date of Service: Aug 03, 2019 Attending Physician: JONATHON ARECHIGA MD History and Physical CHIEF COMPLAINT: Mouth sores HISTORY OF PRESENT ILLNESS: Patient is 68 year old male with medical history of adenocarcinoma of the lung, DM, HTN, HLD, CAD presents to the ER with complaints of mouth pain and sores for the past few days. He was reportedly diagnosed with adecocarcinoma of colon s/p partial colectomy on chemotherapy since 2018 and was started on a new agent recently Xeloda and had noticed development of sores in his mouth and diarrhea. Stated that he has not been eating anything for the past 4 days because of pain but tries to drink as much water as possible to keep himself hydrated. He also reports some nausea but denies any other complaints including chest pain, SOB, fever, chills, vomiting. PAST MEDICAL HISTORY: Refer to [facility] PAST SURGICAL HISTORY: Colonoscopy, partial colectomy SOCIAL HISTORY: Denies tobacco, alcohol or illicit drug use. FAMILY HISTORY: Father- COPD Mother- kidney disease ALLERGIES: Please see below. REVIEW OF SYSTEMS: 10 point review of system negative except as stated in [facility] MEDICATIONS: Please see below. PHYSICAL EXAMINATION: General: Alert, weak, thin/malnourished appearing Eyes: Normal sclera, EOMI HENT: Atraumatic. Erythematous patches throughout oral cavity with white spots on posterior tongue, tender. Cardiovascular: Normal rate, normal rhythm. Pulmonary: Clear to auscultation b/l, no wheezing GI: Soft, nontender, nondistended Skin: Warm and dry Neuro: CN grossly intact. No focal deficits. Strengths equal b/l. Psych: oriented x 3 LABORATORY DATA: See below. IMAGING: CT Abdomen/pelvis- IMPRESSION: 1. Several centrally cystic nodules in the lung bases measuring up to 6 mm increasing in size, most consistent with metastatic disease. Follow-up suggested as clinically directed. 2. There is a diffuse decrease in hepatic parenchymal density, consistent with steatosis. There is a small stable 7 mm hypodensity at the anterior edge of the lateral segment left lobe of the liver which on coronal imaging appears to represent a cyst. No other focal abnormalities demonstrated. 3. There are gallstones in the gallbladder demonstrating a thickened wall. Finding may be related to incomplete distention although chronic cholecystitis should be considered clinically. 4. A small sliding hiatal hernia is present. 5. Moderate prostatic hyperplasia. 6. There is abnormal thickening of several small bowel loops in the right lower quadrant, associated with engorgement of the Vasa recta, findings consistent with inflammatory bowel disease. 7. Multiple foci of segmental thickening of the colon throughout its course, findings consistent with multifocal segmental colitis. Inflammatory changes demonstrated in the left colon may indicate acute inflammation. No abscess demonstrated. Increased colonic fluid consistent with diarrhea. Status post subtotal right hemicolectomy. MICROBIOLOGY: Please see below. ASSESSMENT AND PLAN: 1. Mucositis 2/2 chemotherapy - On chemo for colon cancer, recently started on Xeloda. - Will hold chemo agent during admission. c/w supportive care. - IVF for dehydration. Magic mouth wash, advance diet as tolerated due to discomfort. 2. HTN - BP controlled. - c/w Chlorthalidone and lisinopril. 3. CAD - c/w ASA and statin. 4. HLD - c/w statin 5. DM - ISS. Had been off of standing medications at home. DVT ppx: Lovenox and DIOGO Dispo: Home once medically stable and able to tolerate PO intake. Vital Signs Vital Signs Date Time Temp Pulse Resp B/P (MAP) Pulse Ox O2 Delivery O2 Flow Rate FiO2 08/03/19 10:15 08/03/19 09:43 97.4 126 20 97 Room Air Laboratory Data Labs 24H Laboratory Tests 2 08/03/19 10:41: Neutrophils (%) (Auto) , Nucleated Red Blood Cells % (auto) 0.0, Neutrophils 68H, Band Neutrophils 1, Lymphocytes (Manual) 31, Nucleated Red Blood Cells 3H, Red Blood Cell Morphology NORMAL, Platelet Estimate NORMAL 08/03/19 10:44: Total Bilirubin 1.0, Direct Bilirubin 0.4H, Aspartate Amino Transf (AST/SGOT) 15, Alanine Aminotransferase (ALT/SGPT) 18, Alkaline Phosphatase 68, Total Protein 6.4, Albumin 3.5, Albumin/Globulin Ratio 1.21, Lipase 201 08/03/19 10:49: POC Glucose (Misc Panel) 205H, POC Sodium (Misc Panel) 130L, POC Potassium (Misc Panel) 3.9, POC Chloride (Misc Panel) 93L, POC Total CO2 (Misc Panel) 24.0, POC Blood Urea Nitrogen (Misc Panel 45H, POC Ionized Calcium (Misc Panel) 4.3L, POC Creatinine (Misc Panel) 1.3, POC Hematocrit (Misc Panel) 48.0 CBC/BMP Laboratory Tests 08/03/19 10:41 Home Medications Scheduled Aspirin (Aspirin EC) 81 Mg Tab, 81 MG PO DAILY Atorvastatin Calcium (Atorvastatin Calcium) 40 Mg Tab, 40 MG PO DAILY Capecitabine (Xeloda) 500 Mg Tablet, 500 MG PO BID for colon cancer Take 4 tablets = 2000 mg po qam and 5 tablets = 2500 mg po q pm for 14 days, then 7 days off Chlorthalidone (Chlorthalidone) 25 Mg Tablet, 12.5 MG PO DAILY Lisinopril (Lisinopril) 10 Mg Tab, 10 MG PO DAILY Allergies Coded Allergies: metformin (Verified Adverse Reaction, Unknown, Dizziness, 08/10/18) A-FIB/CHADSVASC A-FIB History Current/History of A-Fib/PAF?: No JONATHON ARECHIGA MD Aug 03, 2019 15:04
[2019-08-03 16:08] VITALS: BP 137/92
[2019-08-03] MEDS ORDERED: ISOVUE-370 76% 100ML VIAL (Q9967) As Ordered ONE (16:49)
[2019-08-03] MEDS: HumaLOG INSULIN (NovoLOG) PER UNIT SC SCH (17:30)
[2019-08-03] MEDS: ATORVASTATIN 20 MG TAB PO SCH (17:34)
[2019-08-03] MEDS: ASPIRIN 81 MG ENTERIC TAB PO SCH (17:34)
[2019-08-03] MEDS: lisinopriL 10 MG TAB PO SCH (17:34)
[2019-08-03] MEDS: ENOXAPARIN 40 MG/0.4 ML SYRINGE (J1650) SC SCH (17:35)
--- NOTE | 2019-08-03 17:45 | REPVR ---
PROCEDURE INFORMATION: Exam: CT Abdomen And Pelvis With Contrast Exam date and time: 08/03/2019 5:14 PM Age: 68 years old Clinical indication: Condition or disease; Cancer; Intestine, large; Additional info: Chemotherapeutic agent risk for pathology TECHNIQUE: Imaging protocol: Computed tomography of the abdomen and pelvis with intravenous contrast. Radiation optimization: All CT scans at this facility use at least one of these dose optimization techniques: automated exposure control; mA and/or kV adjustment per patient size (includes targeted exams where dose is matched to clinical indication); or iterative reconstruction. Contrast material: ISOVUE 370; Contrast volume: 100 ml; Contrast route: IV; COMPARISON: CT ABD/PEL W/IV ORAL CONTRAS 03/01/2019 8:25 AM FINDINGS: Lungs: Small calcified granuloma left lower lobe. Bilateral nodular opacities at the lung bases with small central cystic components measuring up to 6 mm in the left lower lobe. Findings may represent metastatic disease with central necrosis although abscesses can present in a similar fashion in the appropriate clinical setting. Nodules have increased slightly in size and as such the finding favors neoplasm. Several other smaller solid noncalcified pulmonary parenchymal nodules demonstrated at the lung bases measuring up to 3.3 mm in the right lower lobe either postinflammatory or neoplastic. Mediastinum: A small sliding hiatal hernia is present. Liver: There is a diffuse decrease in hepatic parenchymal density, consistent with steatosis. There is a small stable 7 mm hypodensity at the anterior edge of the lateral segment left lobe of the liver which on coronal imaging appears to represent a cyst. No other focal abnormalities demonstrated. Gallbladder and bile ducts: There are gallstones in the gallbladder demonstrating a thickened wall. Finding may be related to incomplete distention although chronic cholecystitis should be considered clinically. Pancreas: Partial fatty replacement of the pancreatic head. Pancreas otherwise unremarkable. Spleen: Normal. No splenomegaly. Adrenals: Normal. No mass. Kidneys and ureters: Normal. No hydronephrosis. Stomach and bowel: There is abnormal thickening of several small bowel loops in the right lower quadrant, associated with engorgement of the Vasa recta, findings consistent with inflammatory bowel disease. Multiple foci of segmental thickening of the colon throughout its course, findings consistent with multifocal segmental colitis. Inflammatory changes demonstrated in the left colon may indicate acute inflammation. No abscess demonstrated. Increased colonic fluid consistent with diarrhea. Status post subtotal right hemicolectomy. Appendix: No evidence of appendicitis. Intraperitoneal space: Unremarkable. No free air. No significant fluid collection. Vasculature: The aorta demonstrates moderate atherosclerotic calcification. Lymph nodes: Unremarkable. No enlarged lymph nodes. Bladder: Unremarkable as visualized. Reproductive: The prostate gland demonstrates moderate hyperplasia. Bones/joints: Moderate central spinal stenosis L3-L4 and moderate to severe central spinal stenosis L4-L5. The spine demonstrates mild degenerative changes. Soft tissues: Unremarkable. IMPRESSION: 1. Several centrally cystic nodules in the lung bases measuring up to 6 mm increasing in size, most consistent with metastatic disease. Follow-up suggested as clinically directed. 2. There is a diffuse decrease in hepatic parenchymal density, consistent with steatosis. There is a small stable 7 mm hypodensity at the anterior edge of the lateral segment left lobe of the liver which on coronal imaging appears to represent a cyst. No other focal abnormalities demonstrated. 3. There are gallstones in the gallbladder demonstrating a thickened wall. Finding may be related to incomplete distention although chronic cholecystitis should be considered clinically. 4. A small sliding hiatal hernia is present. 5. Moderate prostatic hyperplasia. 6. There is abnormal thickening of several small bowel loops in the right lower quadrant, associated with engorgement of the Vasa recta, findings consistent with inflammatory bowel disease. 7. Multiple foci of segmental thickening of the colon throughout its course, findings consistent with multifocal segmental colitis. Inflammatory changes demonstrated in the left colon may indicate acute inflammation. No abscess demonstrated. Increased colonic fluid consistent with diarrhea. Status post subtotal right hemicolectomy. Electronically signed by: Dimitrios Patel On 08/03/2019 17:45:04 PM
[2019-08-03] MEDS: CHLORTHALIDONE 12.5MG PER 1/2 TABLET PO SCH (18:24)
[2019-08-03] MEDS ORDERED: DEXTROSE 50% 50 ML SYRINGE IV PRN (18:30)
[2019-08-03] MEDS ORDERED: GLUCOSE 4 GM CHEW TABLET PO PRN (18:30)
[2019-08-03] MEDS ORDERED: GLUCAGON FOR INJ 1 MG VIAL (J1610) SC PRN (18:30)
[2019-08-03] MEDS: MAGIC MOUTHWASH SUSPENSION BTL SS PRN (20:34)
[2019-08-03 22:00] VITALS: BP 136/95
[2019-08-03 22:30] VITALS: BP 128/83
[2019-08-04] MEDS: NS 1,000 ML IV SCH ×4 (04:18→18:02)
[2019-08-04] MEDS: MAGIC MOUTHWASH SUSPENSION BTL SS PRN ×4 (04:18→16:23)
[2019-08-04 05:55] LABS: HEMATOCRIT 38.6 % (42.0-52.0); MEAN CORPUSCULAR HEMOGLOBIN 31.4 pg (27.0-33.0); MEAN CORPUSCULAR VOLUME 89.8 fl (80.0-96.0); WHITE BLOOD COUNT 2.7 10^3/uL (4.0-10.0)
[2019-08-04 06:00] VITALS: BP 125/81
[2019-08-04 06:16] LABS: BLOOD UREA NITROGEN 32 MG/DL (7-18); CARBON DIOXIDE LEVEL 28 MEQ/L (21-32); CHLORIDE LEVEL 104 MEQ/L (98-107); CREATININE FOR GFR 0.99 MG/DL (0.70-1.30); GLOMERULAR FILTRATION RATE > 60.0 (>42); GLUCOSE, FASTING 139 MG/DL (70-100); POTASSIUM SERUM 3.4 MEQ/L (3.5-5.1); SODIUM LEVEL 135 MEQ/L (136-145)
[2019-08-04 06:40] LABS: HEMOGLOBIN 13.5 g/dl (13.5-17.5); PLATELET COUNT, AUTOMATED 74 10^3/uL (150-450)
[2019-08-04] MEDS: CHLORTHALIDONE 12.5MG PER 1/2 TABLET PO SCH (08:25)
[2019-08-04] MEDS: lisinopriL 10 MG TAB PO SCH (08:26)
[2019-08-04] MEDS: ATORVASTATIN 20 MG TAB PO SCH (08:26)
[2019-08-04] MEDS: HumaLOG INSULIN (NovoLOG) PER UNIT SC SCH ×3 (08:27→17:45)
[2019-08-04 14:00] VITALS: BP 125/81
--- NOTE | 2019-08-04 14:11 | IPNPDOC ---
Date Seen The patient was seen on 08/04/19. Progress Note SUBJECTIVE: Patient reports feeling slightly better. Mouth ulceration pain improved from yesterday with magic mouth wash. Diet will restricted to mostly liquid diet due to pain. Afebrile overnight. Appear to develop pancytopenia with a drop in multiple cell lines including WBC, Hb, platelets. OBJECTIVE PHYSICAL EXAMINATION: General: Alert, weak, thin/malnourished appearing Eyes: Normal sclera, EOMI HENT: Atraumatic. Erythematous patches throughout oral cavity with white spots on posterior tongue, tender. Cardiovascular: Normal rate, normal rhythm. Pulmonary: Clear to auscultation b/l, no wheezing GI: Soft, nontender, nondistended Skin: Warm and dry Neuro: CN grossly intact. No focal deficits. Strengths equal b/l. Psych: oriented x 3 LABORATORY DATA: See below. IMAGING: CT Abdomen/pelvis- IMPRESSION: 1. Several centrally cystic nodules in the lung bases measuring up to 6 mm increasing in size, most consistent with metastatic disease. Follow-up suggested as clinically directed. 2. There is a diffuse decrease in hepatic parenchymal density, consistent with steatosis. There is a small stable 7 mm hypodensity at the anterior edge of the lateral segment left lobe of the liver which on coronal imaging appears to represent a cyst. No other focal abnormalities demonstrated. 3. There are gallstones in the gallbladder demonstrating a thickened wall. Finding may be related to incomplete distention although chronic cholecystitis should be considered clinically. 4. A small sliding hiatal hernia is present. 5. Moderate prostatic hyperplasia. 6. There is abnormal thickening of several small bowel loops in the right lower quadrant, associated with engorgement of the Vasa recta, findings consistent with inflammatory bowel disease. 7. Multiple foci of segmental thickening of the colon throughout its course, findings consistent with multifocal segmental colitis. Inflammatory changes demonstrated in the left colon may indicate acute inflammation. No abscess demonstrated. Increased colonic fluid consistent with diarrhea. Status post subtotal right hemicolectomy. MICROBIOLOGY: Please see below. ASSESSMENT AND PLAN: 1. Mucositis 2/2 chemotherapy - On chemo for colon cancer, recently started on Xeloda. - Will hold chemo agent during admission. c/w supportive care. Discussed plan wit Dr Gallegos. - IVF for dehydration. Magic mouth wash, advance diet as tolerated due to discomfort. 2. HTN - BP controlled. - c/w Chlorthalidone and lisinopril. 3. CAD - c/w ASA and statin. 4. HLD - c/w statin 5. DM - ISS. Had been off of standing medications at home. 6. Pancytopenia - likely 2/2 chemo effects. - No signs of bleeding or infection at this time. Monitor diff. - If ANC <1000, consider giving neupogen. 300 mcg. DVT ppx: Lovenox and DIOGO Dispo: Home once medically stable and able to tolerate PO intake. VS, I&O, 24H, Fishbone Vital Signs/I&O Vital Signs Date Time Temp Pulse Resp B/P (MAP) Pulse Ox O2 Delivery O2 Flow Rate FiO2 08/04/19 08:26 125/81 08/04/19 06:00 97.6 93 18 100 Room Air I&O- Last 24 Hours up to 6 AM 08/04/19 06:00 Intake Total 1937 ml Output Total 0 ml Balance 1937 ml Laboratory Data 24H LABS Laboratory Tests 2 08/03/19 20:37: Bedside Glucose (Misc Panel) 175H 08/04/19 05:40: Nucleated Red Blood Cells % (auto) 0.0, Immature Platelet Fraction 2.6, Anion Gap 3L, Glomerular Filtration Rate > 60.0, Calcium Level 7.0L 08/04/19 11:20: Bedside Glucose (Misc Panel) 131H CBC/BMP Laboratory Tests 08/04/19 05:40 Microbiology Microbiology 08/03/19 Gastrointestinal Tract Panel (PCR) - Final, Complete JONATHON ARECHIGA MD Aug 04, 2019 14:11
[2019-08-04] MEDS: CALCIUM CARBONATE 500 MG CHEW U/D PO PRN (18:02)
[2019-08-04 22:00] VITALS: BP 159/75
[2019-08-05] MEDS: CALCIUM CARBONATE 500 MG CHEW U/D PO PRN (00:49)
[2019-08-05] MEDS: MAGIC MOUTHWASH SUSPENSION BTL SS PRN ×4 (00:49→21:59)
[2019-08-05 06:00] VITALS: BP 140/84
[2019-08-05 06:22] LABS: HEMATOCRIT 39.3 % (42.0-52.0); HEMOGLOBIN 14.1 g/dl (13.5-17.5); MEAN CORPUSCULAR HEMOGLOBIN 31.7 pg (27.0-33.0); MEAN CORPUSCULAR HGB CONC 35.9 g/dl (32.0-36.5); MEAN CORPUSCULAR VOLUME 88.3 fl (80.0-96.0); RED BLOOD COUNT 4.45 10^6/uL (4.30-6.10); WHITE BLOOD COUNT 1.4 10^3/uL (4.0-10.0)
[2019-08-05 06:34] LABS: PLATELET COUNT, AUTOMATED 64 10^3/uL (150-450)
[2019-08-05 06:37] LABS: BLOOD UREA NITROGEN 23 MG/DL (7-18); CALCIUM LEVEL 7.3 MG/DL (8.8-10.2); CARBON DIOXIDE LEVEL 25 MEQ/L (21-32); CHLORIDE LEVEL 104 MEQ/L (98-107); CREATININE FOR GFR 0.74 MG/DL (0.70-1.30); GLOMERULAR FILTRATION RATE > 60.0 (>42); GLUCOSE, FASTING 137 MG/DL (70-100); SODIUM LEVEL 136 MEQ/L (136-145)
[2019-08-05 07:15] LABS: ANISOCYTOSIS 1+; ATYPICAL LYMPH 1 % (0-5); DOHLE BODIES 1+; EOSINOPHILS 4 % (0-3); LYMPHOCYTES 67 % (16-44); METAMYELOCYTES 1 % (0-0); MICROCYTOSIS 1+; MONOCYTES 3 % (0-5); MYELOCYTES 1 % (0-0); NEUTROPHILS 19 % (28-66); PLATELET ESTIMATE DECREASED (NORMAL); TOXIC GRANULATION 1+
[2019-08-05] MEDS: HumaLOG INSULIN (NovoLOG) PER UNIT SC SCH ×3 (07:30→17:37)
[2019-08-05] MEDS: ACETAMINOPHEN TAB 650MG DOSE (2X325MG) PO PRN (08:07)
[2019-08-05] MEDS ORDERED: POTASSIUM CHLORIDE 10 MEQ SR TABLET PO SCH (09:00)
[2019-08-05] MEDS ORDERED: POTASSIUM CHLORIDE 10% LIQ 20 MEQ/15 ML UDC PO SCH (09:00)
[2019-08-05] MEDS: NS 1,000 ML IV SCH ×2 (10:01→10:48)
[2019-08-05] MEDS: CHLORTHALIDONE 12.5MG PER 1/2 TABLET PO SCH (10:02)
[2019-08-05] MEDS: ASPIRIN 81 MG ENTERIC TAB PO SCH (10:02)
[2019-08-05] MEDS: ATORVASTATIN 20 MG TAB PO SCH (10:03)
[2019-08-05] MEDS: lisinopriL 10 MG TAB PO SCH (10:03)
[2019-08-05] MEDS: FAMOTIDINE 20 MG TAB PO SCH ×2 (10:03→20:39)
[2019-08-05] MEDS: ENOXAPARIN 40 MG/0.4 ML SYRINGE (J1650) SC SCH (10:04)
--- NOTE | 2019-08-05 11:09 | IPNPDOC ---
Date Seen The patient was seen on 08/05/19. Progress Note SUBJECTIVE: Patient still reports significant mouth sores, although appears to be more hy drated and white spots on tongue are less noticable. K 3.0, unable to tolerate tablets or liquid. To get IV K repletion slowly. Worsen pancytopenia, WBC 1.4 this AM with ANC 322. Started on neupogen. OBJECTIVE PHYSICAL EXAMINATION: General: Alert, weak, thin/malnourished appearing Eyes: Normal sclera, EOMI HENT: Atraumatic. Erythematous/white patches in oral cavity mostly under tongue. Cardiovascular: Normal rate, normal rhythm. Pulmonary: Clear to auscultation b/l, no wheezing GI: Soft, nontender, nondistended Skin: Warm and dry Neuro: CN grossly intact. No focal deficits. Strengths equal b/l. Psych: oriented x 3 LABORATORY DATA: See below. IMAGING: CT Abdomen/pelvis- IMPRESSION: 1. Several centrally cystic nodules in the lung bases measuring up to 6 mm increasing in size, most consistent with metastatic disease. Follow-up suggested as clinically directed. 2. There is a diffuse decrease in hepatic parenchymal density, consistent with steatosis. There is a small stable 7 mm hypodensity at the anterior edge of the lateral segment left lobe of the liver which on coronal imaging appears to represent a cyst. No other focal abnormalities demonstrated. 3. There are gallstones in the gallbladder demonstrating a thickened wall. Finding may be related to incomplete distention although chronic cholecystitis should be considered clinically. 4. A small sliding hiatal hernia is present. 5. Moderate prostatic hyperplasia. 6. There is abnormal thickening of several small bowel loops in the right lower quadrant, associated with engorgement of the Vasa recta, findings consistent with inflammatory bowel disease. 7. Multiple foci of segmental thickening of the colon throughout its course, findings consistent with multifocal segmental colitis. Inflammatory changes demonstrated in the left colon may indicate acute inflammation. No abscess demonstrated. Increased colonic fluid consistent with diarrhea. Status post subtotal right hemicolectomy. MICROBIOLOGY: Please see below. ASSESSMENT AND PLAN: 1. Mucositis 2/2 chemotherapy - On chemo for colon cancer, recently started on Xeloda. - Will hold chemo agent during admission. c/w supportive care. Discussed plan wit Dr Gallegos. - IVF for dehydration. Magic mouth wash, advance diet as tolerated due to discomfort. 2. HTN - BP controlled. - c/w Chlorthalidone and lisinopril. 3. CAD - c/w ASA and statin. 4. HLD - c/w statin 5. DM - ISS. Had been off of standing medications at home. 6. Pancytopenia - worsening likely 2/2 chemo effects. - No signs of bleeding or infection at this time. Monitor diff. - Started on neupogen. ANC <500. DVT ppx: Lovenox and DIOGO Dispo: Home once medically stable and able to tolerate PO intake. VS, I&O, 24H, Fishbone Vital Signs/I&O Vital Signs Date Time Temp Pulse Resp B/P (MAP) Pulse Ox O2 Delivery O2 Flow Rate FiO2 08/05/19 10:03 128/92 08/05/19 06:00 97.4 107 18 99 Room Air I&O- Last 24 Hours up to 6 AM 08/05/19 06:00 Intake Total 3840 ml Balance 3840 ml Laboratory Data 24H LABS Laboratory Tests 2 08/04/19 11:20: Bedside Glucose (Misc Panel) 131H 08/04/19 16:21: Bedside Glucose (Misc Panel) 144H 08/05/19 05:50: Immature Granulocyte % (Auto) , Neutrophils (%) (Auto) , Neutrophils # (Auto) , Nucleated Red Blood Cells % (auto) 0.0, Neutrophils 19L, Band Neutrophils 4, Lymphocytes (Manual) 67H, Monocytes (Manual) 3, Eosinophils (Manual) 4H, Metamyelocytes 1H, Myelocytes 1H, Atypical Lymphocytes 1, Anisocytosis 1+, Microcytosis 1+, Toxic Granulation 1+, Dohle Bodies 1+, Platelet Estimate DECREASED, Immature Platelet Fraction 3.4, Anion Gap 7L, Glomerular Filtration Rate > 60.0, Calcium Level 7.3L CBC/BMP Laboratory Tests 08/05/19 05:50 Microbiology Microbiology 08/03/19 Gastrointestinal Tract Panel (PCR) - Final, Complete JONATHON ARECHIGA MD Aug 05, 2019 11:09
[2019-08-05] MEDS ORDERED: KCL 10MEQ/100ML SWI (KRUN) 10 MEQ in IV 1 EA IV ONE ×6 (11:15)
[2019-08-05] MEDS: KCL 10MEQ/100ML SWI (KRUN) 10 MEQ in IV 1 EA IV SCH ×4 (11:39→15:33)
[2019-08-05 14:00] VITALS: BP 130/80
[2019-08-05] MEDS: FILGRASTIM 300 MCG/0.5 ML SYRINGE (J1442 PER 1MCG) SC SCH (15:34)
[2019-08-05 22:00] VITALS: BP 124/89
[2019-08-06] MEDS: NS 1,000 ML IV SCH ×3 (00:37→18:43)
[2019-08-06 06:00] VITALS: BP 131/89
[2019-08-06] MEDS: ACETAMINOPHEN TAB 650MG DOSE (2X325MG) PO PRN ×3 (06:16→21:37)
[2019-08-06] MEDS: MAGIC MOUTHWASH SUSPENSION BTL SS PRN ×2 (06:17→21:37)
[2019-08-06 07:19] LABS: HEMATOCRIT 36.8 % (42.0-52.0); HEMOGLOBIN 13.1 g/dl (13.5-17.5); LYMPH # 0.7 10^3/uL (1.5-5.0); LYMPH % 82.5 % (24.0-44.0); MEAN CORPUSCULAR HEMOGLOBIN 31.4 pg (27.0-33.0); MEAN CORPUSCULAR HGB CONC 35.6 g/dl (32.0-36.5); MEAN CORPUSCULAR VOLUME 88.2 fl (80.0-96.0); MONO % 2.5 % (0.0-5.0); RED BLOOD COUNT 4.17 10^6/uL (4.30-6.10)
[2019-08-06 07:20] LABS: NEUTROPHILS # 0.1 10^3/uL (1.5-8.5); PLATELET COUNT, AUTOMATED 46 10^3/uL (150-450); WHITE BLOOD COUNT 0.8 10^3/uL (4.0-10.0)
[2019-08-06 07:29] LABS: BLOOD UREA NITROGEN 18 MG/DL (7-18); CALCIUM LEVEL 7.1 MG/DL (8.8-10.2); CARBON DIOXIDE LEVEL 30 MEQ/L (21-32); CHLORIDE LEVEL 103 MEQ/L (98-107); CREATININE FOR GFR 0.78 MG/DL (0.70-1.30); GLOMERULAR FILTRATION RATE > 60.0 (>42); GLUCOSE, FASTING 121 MG/DL (70-100); SODIUM LEVEL 137 MEQ/L (136-145)
[2019-08-06] MEDS: HumaLOG INSULIN (NovoLOG) PER UNIT SC SCH ×3 (08:05→17:20)
[2019-08-06] MEDS: ENOXAPARIN 40 MG/0.4 ML SYRINGE (J1650) SC SCH (09:00)
[2019-08-06] MEDS: ASPIRIN 81 MG ENTERIC TAB PO SCH (09:00)
[2019-08-06] MEDS: ATORVASTATIN 20 MG TAB PO SCH (09:45)
[2019-08-06] MEDS: FAMOTIDINE 20 MG TAB PO SCH ×2 (09:45→21:37)
[2019-08-06] MEDS: lisinopriL 10 MG TAB PO SCH (09:46)
[2019-08-06] MEDS: CHLORTHALIDONE 12.5MG PER 1/2 TABLET PO SCH (09:46)
[2019-08-06] MEDS: KCL 10MEQ/100ML SWI (KRUN) 10 MEQ in IV 1 EA IV SCH ×5 (09:47→14:13)
--- NOTE | 2019-08-06 12:41 | IPNPDOC ---
Date Seen The patient was seen on 08/06/19. Progress Note SUBJECTIVE: Mouth sore persistent but slightly better today. K still at 3.0 despite repletion yesterday, to continue IV K repletion. Pancytopenia worsened. WBC .8 today. OBJECTIVE PHYSICAL EXAMINATION: General: Alert, weak, thin/malnourished appearing Eyes: Normal sclera, EOMI HENT: Atraumatic. Erythematous/white patches in oral cavity mostly under tongue. Poor dentition. Cardiovascular: Normal rate, normal rhythm. Pulmonary: Clear to auscultation b/l, no wheezing GI: Soft, nontender, nondistended Skin: Warm and dry Neuro: CN grossly intact. No focal deficits. Strengths equal b/l. Psych: oriented x 3 LABORATORY DATA: See below. IMAGING: CT Abdomen/pelvis- IMPRESSION: 1. Several centrally cystic nodules in the lung bases measuring up to 6 mm increasing in size, most consistent with metastatic disease. Follow-up suggested as clinically directed. 2. There is a diffuse decrease in hepatic parenchymal density, consistent with steatosis. There is a small stable 7 mm hypodensity at the anterior edge of the lateral segment left lobe of the liver which on coronal imaging appears to represent a cyst. No other focal abnormalities demonstrated. 3. There are gallstones in the gallbladder demonstrating a thickened wall. Finding may be related to incomplete distention although chronic cholecystitis should be considered clinically. 4. A small sliding hiatal hernia is present. 5. Moderate prostatic hyperplasia. 6. There is abnormal thickening of several small bowel loops in the right lower quadrant, associated with engorgement of the Vasa recta, findings consistent with inflammatory bowel disease. 7. Multiple foci of segmental thickening of the colon throughout its course, findings consistent with multifocal segmental colitis. Inflammatory changes demonstrated in the left colon may indicate acute inflammation. No abscess demonstrated. Increased colonic fluid consistent with diarrhea. Status post subtotal right hemicolectomy. MICROBIOLOGY: Please see below. ASSESSMENT AND PLAN: 1. Mucositis 2/2 chemotherapy - On chemo for colon cancer, recently started on Xeloda. - Xeloda has been held. c/w supportive care. Discussed plan wit Dr Gallegos. - IVF for dehydration. Magic mouth wash, advance diet as tolerated due to discomfort. - salt water swishes, keep mouth as clean as possible. 2. HTN - BP controlled. - c/w Chlorthalidone and lisinopril. 3. CAD - c/w ASA and statin. 4. HLD - c/w statin 5. DM - ISS. Had been off of standing medications at home. 6. Severe Neutropenia and Pancytopenia - worsening likely 2/2 chemo effects. - No signs of bleeding or infection at this time. Monitor diff. - Started on neupogen. ANC <500. DVT ppx: Lovenox and DIOGO Dispo: Home once medically stable and able to tolerate PO intake. VS, I&O, 24H, Fishbone Vital Signs/I&O Vital Signs Date Time Temp Pulse Resp B/P (MAP) Pulse Ox O2 Delivery O2 Flow Rate FiO2 08/06/19 09:46 134/85 08/06/19 06:30 98.9 08/06/19 06:00 110 15 99 Room Air I&O- Last 24 Hours up to 6 AM 08/06/19 06:00 Intake Total 1900 ml Balance 1900 ml Laboratory Data 24H LABS Laboratory Tests 2 08/05/19 17:18: Bedside Glucose (Misc Panel) 137H 08/06/19 06:43: Immature Granulocyte % (Auto) 0.0, Neutrophils (%) (Auto) 10.0L, Lymphocytes (%) (Auto) 82.5H, Monocytes (%) (Auto) 2.5, Eosinophils (%) (Auto) 5.0H, Basophils (%) (Auto) 0.0, Neutrophils # (Auto) 0.1L, Lymphocytes # (Auto) 0.7L, Monocytes # (Auto) 0.0, Eosinophils # (Auto) 0.0, Basophils # (Auto) 0.0, Nucleated Red Blood Cells % (auto) 0.0, Immature Platelet Fraction 2.6, Anion Gap 4L, Glomerular Filtration Rate > 60.0, Calcium Level 7.1L 08/06/19 11:23: Bedside Glucose (Misc Panel) 118H CBC/BMP Laboratory Tests 08/06/19 06:43 Microbiology Microbiology 08/03/19 Gastrointestinal Tract Panel (PCR) - Final, Complete JONATHON ARECHIGA MD Aug 06, 2019 12:41
[2019-08-06 14:00] VITALS: BP 129/74
[2019-08-06] MEDS: FILGRASTIM 300 MCG/0.5 ML SYRINGE (J1442 PER 1MCG) SC SCH (14:13)
[2019-08-06 21:00] VITALS: BP 140/90
[2019-08-06] MEDS ORDERED: VANCOMYCIN HCL 1,000 MG, VIAL MATE ADAPTER 1 EACH in D5W 250 ML IV ONE (22:00)
[2019-08-07] MEDS: PIPERACILLIN/TAZOBACTAM SOD 3.375 GM in D5W MINI-BAG PLUS 50 ML IV SCH ×4 (01:51→23:06)
[2019-08-07 01:56] VITALS: BP 130/80
[2019-08-07] MEDS: ACETAMINOPHEN TAB 650MG DOSE (2X325MG) PO PRN ×2 (02:25→20:33)
[2019-08-07] MEDS: MAGIC MOUTHWASH SUSPENSION BTL SS PRN ×4 (02:26→20:33)
[2019-08-07 02:46] LABS: APPEARANCE, URINE HAZY (CLEAR); BACTERIA, URINE AUTO NEGATIVE (NEGATIVE); BILIRUBIN, URINE AUTO NEGATIVE (NEGATIVE); BLOOD, URINE BLOOD NEGATIVE (NEGATIVE); COLOR, URINE YELLOW (YELLOW); GLUCOSE, URINE (UA) AUTO NEGATIVE (NEGATIVE); KETONE, URINE AUTO NEGATIVE (NEGATIVE); LEUKOCYTE ESTERASE, URINE AUTO NEGATIVE (NEGATIVE); MUCUS, URINE SMALL (NEGATIVE); NITRITE, URINE AUTO NEGATIVE (NEGATIVE); PROTEIN, URINE AUTO NEGATIVE (NEGATIVE); RBC, URINE AUTO 1 /HPF (0-3); SPECIFIC GRAVITY URINE AUTO 1.023 (1.002-1.035); SQUAMOUS EPITHELIAL CELL UR AU 0 /HPF (0-6); UROBILINOGEN, URINE AUTO 0.2 mg/dL (0.0-2.0); WBC, URINE AUTO 2 /HPF (0-3)
[2019-08-07] MEDS ORDERED: NS 500 ML IV ONE (03:15)
[2019-08-07 06:00] VITALS: BP 122/79
[2019-08-07 06:22] LABS: EOS # 0.1 10^3/uL (0.0-0.5); EOS % 11.8 % (0.0-3.0); HEMATOCRIT 32.7 % (42.0-52.0); HEMOGLOBIN 11.7 g/dl (13.5-17.5); LYMPH # 0.5 10^3/uL (1.5-5.0); LYMPH % 76.5 % (24.0-44.0); MEAN CORPUSCULAR HEMOGLOBIN 31.4 pg (27.0-33.0); MEAN CORPUSCULAR HGB CONC 35.8 g/dl (32.0-36.5); MEAN CORPUSCULAR VOLUME 87.7 fl (80.0-96.0); MONO # 0.1 10^3/uL (0.0-0.8); MONO % 7.4 % (0.0-5.0); NEUTROPHILS % 4.3 % (36.0-66.0); RED BLOOD COUNT 3.73 10^6/uL (4.30-6.10)
[2019-08-07 06:27] LABS: PLATELET COUNT, AUTOMATED 46 10^3/uL (150-450); WHITE BLOOD COUNT 0.7 10^3/uL (4.0-10.0)
[2019-08-07] MEDS: HumaLOG INSULIN (NovoLOG) PER UNIT SC SCH ×3 (07:30→17:30)
[2019-08-07] MEDS: FAMOTIDINE 20 MG TAB PO SCH ×2 (10:13→20:33)
[2019-08-07] MEDS: KCL 10MEQ/100ML SWI (KRUN) 10 MEQ in IV 1 EA IV SCH ×5 (10:13→15:39)
[2019-08-07] MEDS: ATORVASTATIN 20 MG TAB PO SCH (10:13)
[2019-08-07] MEDS: CHLORTHALIDONE 12.5MG PER 1/2 TABLET PO SCH (10:13)
[2019-08-07] MEDS: lisinopriL 10 MG TAB PO SCH (10:14)
--- NOTE | 2019-08-07 10:34 | IPNPDOC ---
Date Seen The patient was seen on 08/07/19. Progress Note SUBJECTIVE: Mouth sore feels better today. Noted to be febrile overnight. Tmax 102.9 with worsening leukopenia. Patient appears comfortable however and does not reports any complaints apart from mouth sores. Abx started overnight with blood cultures collected. Hypokalemia persistent 3.0. OBJECTIVE PHYSICAL EXAMINATION: General: Alert, weak, thin/malnourished appearing Eyes: Normal sclera, EOMI HENT: Atraumatic. Erythematous/white patches in oral cavity mostly under tongue. Poor dentition. Cardiovascular: Normal rate, normal rhythm. Pulmonary: Clear to auscultation b/l, no wheezing GI: Soft, nontender, nondistended Skin: Warm and dry Neuro: CN grossly intact. No focal deficits. Strengths equal b/l. Psych: oriented x 3 LABORATORY DATA: See below. IMAGING: CT Abdomen/pelvis- IMPRESSION: 1. Several centrally cystic nodules in the lung bases measuring up to 6 mm increasing in size, most consistent with metastatic disease. Follow-up suggested as clinically directed. 2. There is a diffuse decrease in hepatic parenchymal density, consistent with steatosis. There is a small stable 7 mm hypodensity at the anterior edge of the lateral segment left lobe of the liver which on coronal imaging appears to represent a cyst. No other focal abnormalities demonstrated. 3. There are gallstones in the gallbladder demonstrating a thickened wall. Finding may be related to incomplete distention although chronic cholecystitis should be considered clinically. 4. A small sliding hiatal hernia is present. 5. Moderate prostatic hyperplasia. 6. There is abnormal thickening of several small bowel loops in the right lower quadrant, associated with engorgement of the Vasa recta, findings consistent with inflammatory bowel disease. 7. Multiple foci of segmental thickening of the colon throughout its course, findings consistent with multifocal segmental colitis. Inflammatory changes demonstrated in the left colon may indicate acute inflammation. No abscess demonstrated. Increased colonic fluid consistent with diarrhea. Status post subtotal right hemicolectomy. MICROBIOLOGY: Please see below. ASSESSMENT AND PLAN: 1. Mucositis 2/2 chemotherapy - On chemo for colon cancer, recently started on Xeloda. - Xeloda has been held. c/w supportive care. Discussed plan wit Dr Gallegos. - IVF for dehydration. Magic mouth wash, advance diet as tolerated due to discomfort. - salt water swishes, keep mouth as clean as possible. 2. HTN - BP controlled. - c/w Chlorthalidone and lisinopril. 3. CAD - c/w ASA and statin. 4. HLD - c/w statin 5. DM - ISS. Had been off of standing medications at home. 6. Neutropenic fever with severe neutropenia and pancytopenia - worsening likely 2/2 chemo effects. - No signs of bleeding or source of infection at this time. Monitor diff. - c/w neupogen. ANC <500. Oncology consulted. - f/u blood cultures and CXR. 7. Hypokalemia - replete daily as needed. c/w monitor BMP. DVT ppx: Lovenox and DIOGO Dispo: Home once medically stable and able to tolerate PO intake. VS, I&O, 24H, Fishbone Vital Signs/I&O Vital Signs Date Time Temp Pulse Resp B/P (MAP) Pulse Ox O2 Delivery O2 Flow Rate FiO2 08/07/19 10:14 131/84 08/07/19 06:00 99.1 114 18 98 Room Air I&O- Last 24 Hours up to 6 AM 08/07/19 06:00 Intake Total 3360 ml Output Total 200 ml Balance 3160 ml Laboratory Data 24H LABS Laboratory Tests 2 08/06/19 11:23: Bedside Glucose (Misc Panel) 118H 08/06/19 17:07: Bedside Glucose (Misc Panel) 135H 08/07/19 02:15: Bedside Glucose (Misc Panel) 89 08/07/19 02:28: Urine Color YELLOW, Urine Appearance HAZY, Urine pH 5.0, Urine Specific Egnar 1.023, Urine Protein NEGATIVE, Urine Glucose (Auto)(UA) NEGATIVE, Urine Ketones (Auto) NEGATIVE, Urine Blood NEGATIVE, Urine Nitrite NEGATIVE, Urine Bilirubin NEGATIVE, Urine Urobilinogen 0.2, Urine Leukocyte Esterase (Auto) NEGATIVE, Urine WBC (Auto) 2, Urine RBC (Auto) 1, Urine Hyaline Casts (Auto) 0, Urine Bacteria (Auto) NEGATIVE, Urine Squamous Epithelial Cells 0, Urine Mucus (Auto) SMALL, Urine Sperm (Auto) 08/07/19 05:50: Immature Granulocyte % (Auto) 0.0, Neutrophils (%) (Auto) 4.3L, Lymphocytes (%) (Auto) 76.5H, Monocytes (%) (Auto) 7.4H, Eosinophils (%) (Auto) 11.8H, Basophils (%) (Auto) 0.0, Neutrophils # (Auto) 0.0L, Lymphocytes # (Auto) 0.5L, Monocytes # (Auto) 0.1, Eosinophils # (Auto) 0.1, Basophils # (Auto) 0.0, Nucleated Red Blood Cells % (auto) 0.0 08/07/19 06:26: Bedside Glucose (Misc Panel) 92 CBC/BMP Laboratory Tests 08/07/19 05:50 Microbiology Microbiology 08/07/19 Blood Culture, Received Pending 08/07/19 Blood Culture, Received Pending 08/06/19 Blood Culture, Received Pending 08/03/19 Gastrointestinal Tract Panel (PCR) - Final, Complete JONATHON ARECHIGA MD Aug 07, 2019 10:34
[2019-08-07] MEDS: ENOXAPARIN 40 MG/0.4 ML SYRINGE (J1650) SC SCH (11:48)
[2019-08-07] MEDS: ASPIRIN 81 MG ENTERIC TAB PO SCH (11:48)
[2019-08-07] MEDS: NS 1,000 ML IV SCH (11:56)
[2019-08-07] MEDS: FILGRASTIM 300 MCG/0.5 ML SYRINGE (J1442 PER 1MCG) SC SCH (11:57)
--- NOTE | 2019-08-07 13:24 | REP ---
Clinical: Fever . Comparison: 06/03/2017 . Findings: The mediastinum and cardiac silhouette are stable and within normal limits for portable technique. [id number] identified with tip in the SVC. The lung florence are clear without acute consolidation, effusion, or pneumothorax. Skeletal structures are intact. Impression: No acute cardiopulmonary process appreciated. Electronically Signed by Donny Christensen MD 08/07/2019 01:15 P
[2019-08-07 14:00] VITALS: BP 126/85
[2019-08-07] MEDS ORDERED: KCL 10MEQ IN STERILE WATER 100ML As Ordered ONE (15:32)
--- NOTE | 2019-08-07 20:08 | CR ---
DATE OF CONSULTATION: 08/07/2019 INDICATION FOR CONSULTATION: Pancytopenia. 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 Molina while hospitalized, with neutropenic fever and mucositis. The patient reports "My mouth is starting to get better." HISTORY OF PRESENT ILLNESS: Nura Walters is a very pleasant 68-year-old gentleman whose history of present illness dates to the year 2006, when he underwent colonoscopy in [place], [place]. At that time, several polyps were identified in the colon and excised. He was then in stable health clinically until February 2017, when he developed abdominal discomfort and was noted to be anemic. He underwent repeat colonoscopy with findings of a colorectal mass. Biopsy documented adenocarcinoma, and he was taken to the operating room at [facility] on 04/19/2017. Findings were of a stage III B adenocarcinoma of the colon. 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 BRAF wild type and no NRAS mutations were identified. The surgical specimen showed metastatic adenocarcinoma in 3 out of 9 pericolic lymph nodes. Mr. Walters then received adjuvant FOLFOX chemotherapy, but this was truncated after six cycles due to severe peripheral neuropathy. In March 2018, the patient's CEA level was found to be elevated and imaging studies showed both pulmonary and hepatic metastases. He began FOLFIRI chemotherapy in October 2018, completing a total of five cycles through December 2018. However, Mr. Walters tolerated that therapy poorly and FOLFIRI was then stopped, but Avastin, which had been given with the FOLFIRI, was continued every two weeks through June 2019. By May 2019, the patient's CEA level was rising, with a CEA level elevated at 227.2 nanogram per mL on 05/29/2019, previously measuring as low as 16.7 nanogram per mL. Following a discussion with the patient, he began Xeloda 1250 mg/m2 twice daily for 14 days followed by 7-day hiatus with resumption of Xeloda on a 21-day cycle, along with ongoing intravenous Avastin every two weeks. Mr. Walters developed mouth pain with fatigue and presented to the emergency department on 08/03/2019. The mouth pain had been progressively worsening over the two days prior to presentation, accompanied by diarrhea. The patient was tachycardiac on presentation, although afebrile. He was admitted for volume repletion and analgesics as well as mouth care. However, over the course of this hospital stay, his white blood count rapidly declined, falling from 4900 per microliter on admission on 08/03/2019 to 1400 per microliter on 08/05/2019, and then to 800 per microliter on 08/06/2019. At the same time, he remained profoundly tachycardic and became febrile to 102 degrees on 08/06/2019. Due to neutropenia and fever, he was placed on empiric broad-spectrum antimicrobials, receiving one dose of intravenous vancomycin on 08/06/2019, as well as Zosyn 3.375 grams every 8 hours beginning on 08/06/2019. Studies and stool by polymerase chain reaction were negative and blood cultures have been without growth. The patient remained febrile in the customer care associate of 08/07/2019 at 100.8 degrees orally, but has since defervesced. He was placed on granulocyte colony-stimulating factor and has been receiving this since developing neutropenia. At present he states his mouth pain is improved, but continues to have diarrhea with perianal irritation. He also reports profound fatigue. ALLERGIES: The patient is intolerant of METFORMIN. CURRENT MEDICATIONS: - Zosyn 3.375 grams intravenously every 8 hours - Pepcid 20 mg by mouth twice a day - Neupogen 300 mcg subcutaneously daily - insulin on sliding scale as needed - acetaminophen 650 mg by mouth every 4 hours as needed for fever - Magic mouthwash 5 mL swish and spit every 4 hours as needed for pain - Lovenox 40 mg subcutaneously daily - aspirin 81 mg by mouth daily - atorvastatin 40 mg by mouth daily - chlorthalidone 12.5 mg by mouth daily - lisinopril 10 mg by mouth daily PAST MEDICAL HISTORY: The patient has a past medical history significant for adenocarcinoma of the colon, as detailed above. 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 There is also a history of non-insulin dependent diabetes mellitus complicated by dyslipidemia. Mr. Walters has a history of gastroesophageal reflux disease and underwent appendectomy for appendicitis in the past. SOCIAL HISTORY: Tobacco: The patient previously used tobacco including chewing tobacco, but no longer actively uses tobacco. Alcohol: Mr. Walters used alcohol in the past, but not in recent months. Illicit drugs: There is no history of illicit drug use. FAMILY HISTORY: The patient's parents are . He reports no history of colon cancer in any first-degree relatives. Family history is otherwise noncontributory. REVIEW OF SYSTEMS: NEUROLOGIC: History of peripheral neuropathy. No history of seizure disorder. No tremor. No other focal neurologic deficits. RESPIRATORY: No history of tuberculosis. No cough. No shortness of breath. No chest pain. CARDIAC: No history of myocardial infarction. No exertional chest pressure. No palpitations. No orthopnea. No leg edema. GASTROINTESTINAL: History of colon cancer. History of mouth sores and pain over the past week as noted. No recent nausea or vomiting or abdominal pain, but the patient has had diarrhea and now has perianal discomfort. GENITOURINARY: No dysuria. No hematuria. No urinary hesitancy. CONSTITUTIONAL: The patient has had recent fevers, chills and sweats. He reports profound fatigue. The remainder of review of systems was obtained and was negative. PHYSICAL EXAMINATION: Mr. Walters is a well-developed, well-nourished, thin gentleman awake, alert and fully oriented, cooperative in no distress at this time. Temperature 97.9, pulse 111, respirations 20, blood pressure 126/85, oxygen saturation 98% on room air. SKIN: Full turgor. Anicteric. OROPHARYNX: With filming of the mucosa and generalized posterior pharyngeal wall erythema. Normocephalic, atraumatic. Pupils equal, round, reactive to light, accommodate. Extraocular muscles intact. Sclerae anicteric. NECK: Supple without thyromegaly. LYMPHATICS: No pathologic lymphadenopathy noted in the cervical, supraclavicular, axillary or inguinal regions. LUNGS: Clear to auscultation, without adventitial breath sounds. CARDIAC EXAM: Tachycardia noted. Point of maximal impulse nondisplaced. S1, S2, without appreciable gallop or rub or murmur. ABDOMEN: Active bowel sounds, soft, nontender, without appreciable organomegaly organomegaly. No guarding or rebound elicited. RECTAL EXAMINATION: Deferred. EXTREMITIES: Without clubbing, cyanosis or edema. NEUROLOGIC EXAMINATION: Mental status intact. Cranial nerves intact. Motor and sensory grossly intact, with the exception of decreased sensation at the fingertips LABORATORY DATA: Laboratory studies dated 08/07/2019 include the following: White blood count 700 per microliter, absolute neutrophil count zero, hemoglobin 11.7 grams per decaliter, hematocrit 32.7%, platelet count 46,000 per microliter.BUN 18, creatinine 0.78 mg per decaliter, glucose 121 mg per decaliter.Most recent total bilirubin 1 mg per decaliter on 07/05/2019, albumin at that time 3.5 grams per decaliter.CEA level 07/27/2019 63.4, previously 16.7 on , with CEA of 73.3 nanogram per mL on 09/01/2018. IMPRESSION: 1. Pancytopenia. 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 Polymorphous in this gene impair metabolism and results in severe toxicity of fluoropyrimidines. The patient has received 5-fluorouracil in the past without such toxicity, but different polymorphisms can result in different toxicity profiles. At this point in time, Mr. Walters is being optimally supported with granulocyte colony-stimulating factor, broad-spectrum antimicrobials empirically, and intravenous fluid hydration. 2. Mucositis. The patient has mucositis again attributable to capecitabine toxicity. He is receiving oral mouth care and topical analgesic with so-called Magic mouth rinse, and these will, of course, be continued. The patient's diarrhea is also manifestation of mucositis. He has developed perianal discomfort and may benefit from Anusol topically to reduce discomfort in that region. 3. Metastatic colon cancer. The patient has metastatic colon cancer, and will require a significant dose reduction or discontinuation of capecitabine. If capecitabine is discontinued, the next treatment option would likely be regorafenib. This has been discussed with Mr. Walters previously. PLAN: It is recommended that Mr. Walters continue current supportive care including daily filgrastim injections subcutaneously, empiric broad-spectrum antimicrobials, and aggressive intravenous fluid hydration. If neutropenia persists, then consideration should be given to the addition of fluconazole as prophylaxis against fungal infection in the setting of neutropenia. Thus, if the neutrophil count does not rise by 08/08/2019, fluconazole 200 mg intravenously or orally daily as recommended. It is recommended the patient ambulate as tolerated, and while in bed consideration should be given to the use of Venodyne compression stockings as venous thromboprophylaxis while the patient's platelet count is below 50,000 per microliter. Additional management recommendations will be forthcoming based on the patient's clinical status as it evolves.
[2019-08-07 22:00] VITALS: BP 128/81
[2019-08-08 06:00] VITALS: BP 125/80
[2019-08-08] MEDS: PIPERACILLIN/TAZOBACTAM SOD 3.375 GM in D5W MINI-BAG PLUS 50 ML IV SCH ×3 (06:18→21:17)
[2019-08-08] MEDS: NS 1,000 ML IV SCH ×2 (06:18→14:40)
[2019-08-08] MEDS: MAGIC MOUTHWASH SUSPENSION BTL SS PRN (06:26)
[2019-08-08 06:45] LABS: EOS # 0.1 10^3/uL (0.0-0.5); EOS % 9.9 % (0.0-3.0); HEMATOCRIT 32.7 % (42.0-52.0); HEMOGLOBIN 11.8 g/dl (13.5-17.5); LYMPH # 0.7 10^3/uL (1.5-5.0); LYMPH % 72.3 % (24.0-44.0); MEAN CORPUSCULAR HEMOGLOBIN 31.6 pg (27.0-33.0); MEAN CORPUSCULAR HGB CONC 36.1 g/dl (32.0-36.5); MEAN CORPUSCULAR VOLUME 87.7 fl (80.0-96.0); MONO # 0.1 10^3/uL (0.0-0.8); MONO % 10.9 % (0.0-5.0); NEUTROPHILS % 6.9 % (36.0-66.0); RED BLOOD COUNT 3.73 10^6/uL (4.30-6.10)
[2019-08-08 06:46] LABS: NEUTROPHILS # 0.1 10^3/uL (1.5-8.5); PLATELET COUNT, AUTOMATED 75 10^3/uL (150-450)
[2019-08-08] MEDS: HumaLOG INSULIN (NovoLOG) PER UNIT SC SCH ×3 (07:30→17:16)
[2019-08-08] MEDS: CHLORTHALIDONE 12.5MG PER 1/2 TABLET PO SCH (09:16)
[2019-08-08] MEDS: FAMOTIDINE 20 MG TAB PO SCH ×2 (09:16→21:15)
[2019-08-08] MEDS: lisinopriL 10 MG TAB PO SCH (09:16)
[2019-08-08] MEDS: ASPIRIN 81 MG ENTERIC TAB PO SCH (09:16)
[2019-08-08] MEDS: ATORVASTATIN 20 MG TAB PO SCH (09:16)
[2019-08-08] MEDS: FILGRASTIM 300 MCG/0.5 ML SYRINGE (J1442 PER 1MCG) SC SCH (09:17)
[2019-08-08] MEDS: ENOXAPARIN 40 MG/0.4 ML SYRINGE (J1650) SC SCH (09:17)
[2019-08-08 14:00] VITALS: BP 141/78
--- NOTE | 2019-08-08 19:18 | IPNPDOC ---
Date Seen The patient was seen on 08/08/19. Progress Note SUBJECTIVE: 68-year-old male with past medical history of metastatic colon cancer who was admitted for neutropenic fever and mucositis secondary to chemotherapy toxicity. Patient has been treated with Neupogen and empiric antibiotics along with IV hydration, having slight improvement but continues to have significant oral pain/discomfort and diarrhea. Patient has low oral intake due to pain/burning with swallowing. He has no other complaints at this time, denies any shortness of breath, chest pain, nausea, vomiting or headache. 10 point review of system is negative except for above PHYSICAL EXAMINATION: VITAL SIGNS: Please see below. GENERAL: No distress HEENT: Normocephalic, multiple ulcers noted under the tongue NECK: Supple CARDIOVASCULAR EXAMINATION: S1, S2, tachycardic RESPIRATORY EXAMINATION: Clear to auscultation, no wheezing ABDOMINAL EXAMINATION: Soft, mild diffuse tenderness, nondistended, positive bowel sounds EXTREMITIES: Range of motion intact SKIN: No rash NEUROLOGICAL EXAMINATION: Alert and oriented 3, no focal deficits PSYCHIATRIC EXAMINATION: Calm and cooperative LABORATORY DATA, IMAGING STUDIES, MICROBIOLOGY: Please see below. ASSESSMENT AND PLAN: 68-year-old male with past medical history of metastatic colon cancer on chemotherapy, admitted for neutropenic fever and mucositis secondary to toxicity of chemotherapeutic agent. PROBLEMS: 1. Neutropenic fever: Continue Neupogen, neutrophil count is improving, continue empiric antibiotics, evaluated by hematology oncology.. 2. Mucositis: Secondary to toxicity of chemotherapeutic agent, continue suppo rtive care to assist with oral pain and intake, oral intake is currently inadequate, clinically dry, increased maintenance fluids to 125 ml/hour.. 3. Hypertension: Continue chlorthalidone and lisinopril DVT prophylaxis: Lovenox. GI prophylaxis: Pepcid VS, I&O, 24H, Fishbone Vital Signs/I&O Vital Signs Date Time Temp Pulse Resp B/P (MAP) Pulse Ox O2 Delivery O2 Flow Rate FiO2 08/08/19 14:00 98.1 98 19 141/78 (99) 98 Room Air I&O- Last 24 Hours up to 6 AM 08/08/19 06:00 Intake Total 2120 ml Output Total 0 ml Balance 2120 ml Laboratory Data 24H LABS Laboratory Tests 2 08/07/19 20:19: Bedside Glucose (Misc Panel) 131H 08/08/19 06:04: Bedside Glucose (Misc Panel) 101 08/08/19 06:26: Immature Granulocyte % (Auto) 0.0, Neutrophils (%) (Auto) 6.9L, Lymphocytes (%) (Auto) 72.3H, Monocytes (%) (Auto) 10.9H, Eosinophils (%) (Auto) 9.9H, Basophils (%) (Auto) 0.0, Neutrophils # (Auto) 0.1L, Lymphocytes # (Auto) 0.7L, Monocytes # (Auto) 0.1, Eosinophils # (Auto) 0.1, Basophils # (Auto) 0.0, Nucleated Red Blood Cells % (auto) 0.0, Immature Platelet Fraction 2.0 08/08/19 11:10: Bedside Glucose (Misc Panel) 124H 08/08/19 16:37: Bedside Glucose (Misc Panel) 134H CBC/BMP Laboratory Tests 08/08/19 06:26 Microbiology Microbiology 08/07/19 Blood Culture - Preliminary, Resulted No growth after 24 hours . All specim... 08/07/19 Blood Culture - Preliminary, Resulted No growth after 24 hours . All specim... 08/06/19 Blood Culture - Preliminary, Resulted No growth after 24 hours . All specim... 08/03/19 Gastrointestinal Tract Panel (PCR) - Final, Complete ANGUS SHEIKH MD Aug 08, 2019 19:18
[2019-08-08] MEDS ORDERED: FLUCONAZOLE 100 MG TAB PO ONE (19:30)
[2019-08-08] MEDS: ACETAMINOPHEN TAB 650MG DOSE (2X325MG) PO PRN (21:15)
[2019-08-08 22:00] VITALS: BP 139/77
[2019-08-08] MEDS: LIDOCAINE VISCOUS 2% SOLN 15ML UDC SS PRN (22:01)
[2019-08-09] MEDS: NS 1,000 ML IV SCH ×4 (02:52→21:20)
[2019-08-09] MEDS: PIPERACILLIN/TAZOBACTAM SOD 3.375 GM in D5W MINI-BAG PLUS 50 ML IV SCH ×4 (02:52→21:20)
[2019-08-09 06:00] VITALS: BP 140/76
[2019-08-09 06:16] LABS: HEMOGLOBIN 11.4 g/dl (13.5-17.5); MEAN CORPUSCULAR HEMOGLOBIN 31.1 pg (27.0-33.0); MEAN CORPUSCULAR HGB CONC 35.6 g/dl (32.0-36.5); MEAN CORPUSCULAR VOLUME 87.4 fl (80.0-96.0); PLATELET COUNT, AUTOMATED 95 10^3/uL (150-450); RED BLOOD COUNT 3.66 10^6/uL (4.30-6.10); WHITE BLOOD COUNT 1.5 10^3/uL (4.0-10.0)
[2019-08-09 06:54] LABS: ALBUMIN 1.5 GM/DL (3.2-5.2); ALT/SGPT 17 U/L (12-78); BILIRUBIN,TOTAL 0.8 MG/DL (0.2-1.0); BLOOD UREA NITROGEN 17 MG/DL (7-18); CALCIUM LEVEL 6.7 MG/DL (8.8-10.2); CARBON DIOXIDE LEVEL 27 MEQ/L (21-32); CHLORIDE LEVEL 104 MEQ/L (98-107); CREATININE FOR GFR 0.68 MG/DL (0.70-1.30); GLOMERULAR FILTRATION RATE > 60.0 (>42); GLUCOSE, FASTING 88 MG/DL (70-100); MAGNESIUM LEVEL 2.5 MG/DL (1.8-2.4); PHOSPHORUS LEVEL 1.4 MG/DL (2.5-4.9); POTASSIUM SERUM 2.4 MEQ/L (3.5-5.1); SODIUM LEVEL 139 MEQ/L (136-145); TOTAL PROTEIN 4.3 GM/DL (6.4-8.2)
[2019-08-09] MEDS ORDERED: POTASSIUM CHLORIDE 10 MEQ SR TABLET PO ONE (07:00)
[2019-08-09] MEDS: HumaLOG INSULIN (NovoLOG) PER UNIT SC SCH ×3 (07:28→17:09)
[2019-08-09] MEDS: FAMOTIDINE 20 MG TAB PO SCH ×2 (08:30→21:20)
[2019-08-09] MEDS: ATORVASTATIN 20 MG TAB PO SCH (08:30)
[2019-08-09] MEDS: lisinopriL 10 MG TAB PO SCH (08:30)
[2019-08-09] MEDS: CHLORTHALIDONE 12.5MG PER 1/2 TABLET PO SCH (08:30)
[2019-08-09] MEDS: ASPIRIN 81 MG ENTERIC TAB PO SCH (08:30)
[2019-08-09] MEDS: ENOXAPARIN 40 MG/0.4 ML SYRINGE (J1650) SC SCH (08:30)
[2019-08-09] MEDS ORDERED: POTASSIUM PHOSPHATE INJ 30 MMOL in D5W 500 ML IV ONE ×2 (08:45→10:00)
[2019-08-09] MEDS: POTASSIUM CHLORIDE 10 MEQ SR TABLET PO SCH ×2 (09:27→21:21)
[2019-08-09] MEDS: FILGRASTIM 300 MCG/0.5 ML SYRINGE (J1442 PER 1MCG) SC SCH (09:28)
[2019-08-09] MEDS: LIDOCAINE VISCOUS 2% SOLN 15ML UDC SS PRN ×4 (09:28→22:37)
[2019-08-09] MEDS: KCL 10MEQ/100ML SWI (KRUN) 10 MEQ in IV 1 EA IV SCH ×4 (10:13→13:24)
[2019-08-09] MEDS: LOPERAMIDE 2 MG CAPLET PO PRN ×2 (13:25→22:37)
[2019-08-09 14:00] VITALS: BP 138/80
[2019-08-09 14:33] LABS: CLOSTRIDIUM DIFFICILE PCR NEGATIVE (NEGATIVE)
--- NOTE | 2019-08-09 20:51 | IPNPDOC ---
Date Seen The patient was seen on 08/09/19. Progress Note SUBJECTIVE: 68-year-old male with past medical history of metastatic colon cancer who was admitted for neutropenic fever and mucositis secondary to chemotherapy toxicity. Patient has been treated with Neupogen and empiric antibiotics along with IV hydration, having slight improvement but continues to have significant oral pain/discomfort and diarrhea. Patient has low oral intake due to pain/burning with swallowing. He has no other complaints at this time, denies any shortness of breath, chest pain, nausea, vomiting or headache. 08/09/19 No acute events overnight, slight improvement from yesterday although he continues to have decreased oral intake due to pain/discomfort along with profou nd diarrhea. He has no additional complaints, denies SOB, CP, N/V or abdominal pain. 10 point review of system is negative except for above PHYSICAL EXAMINATION: VITAL SIGNS: Please see below. GENERAL: No distress HEENT: Normocephalic, multiple ulcers noted under the tongue NECK: Supple CARDIOVASCULAR EXAMINATION: S1, S2, tachycardic RESPIRATORY EXAMINATION: Clear to auscultation, no wheezing ABDOMINAL EXAMINATION: Soft, mild diffuse tenderness, nondistended, positive bowel sounds EXTREMITIES: Range of motion intact SKIN: No rash NEUROLOGICAL EXAMINATION: Alert and oriented 3, no focal deficits PSYCHIATRIC EXAMINATION: Calm and cooperative LABORATORY DATA, IMAGING STUDIES, MICROBIOLOGY: Please see below. ASSESSMENT AND PLAN: 68-year-old male with past medical history of metastatic co milan cancer on chemotherapy, admitted for neutropenic fever and mucositis secondary to toxicity of chemotherapeutic agent. PROBLEMS: 1. Neutropenic fever: Continue Neupogen, neutrophil count is improving, continue empiric antibiotics, evaluated by hematology oncology. 2. Mucositis: Secondary to toxicity of chemotherapeutic agent, continue supportive care to assist with oral pain and intake, continue IV hydration. 3. Hypertension: Continue chlorthalidone and lisinopril 4. Electrolyte abnormalities: supplemented IV & by mouth. DVT prophylaxis: Lovenox. GI prophylaxis: Pepcid VS, I&O, 24H, Fishbone Vital Signs/I&O Vital Signs Date Time Temp Pulse Resp B/P (MAP) Pulse Ox O2 Delivery O2 Flow Rate FiO2 08/09/19 14:00 98.4 89 17 138/80 (99) 99 Room Air I&O- Last 24 Hours up to 6 AM 08/09/19 06:00 Intake Total 3260 ml Output Total 900 ml Balance 2360 ml Laboratory Data 24H LABS Laboratory Tests 2 08/09/19 05:36: Nucleated Red Blood Cells % (auto) 0.0, Anion Gap 8, Glomerular Filtration Rate > 60.0, Calcium Level 6.7L, Phosphorus Level 1.4L, Magnesium Level 2.5H, Total Bilirubin 0.8, Aspartate Amino Transf (AST/SGOT) 12, Alanine Aminotransferase (ALT/SGPT) 17, Alkaline Phosphatase 41L, Total Protein 4.3L, Albumin 1.5L, Albu min/Globulin Ratio 0.54L 08/09/19 11:18: Bedside Glucose (Misc Panel) 101 08/09/19 13:18: Clostridium difficile [id number] PRESUMPTIVE NEGATIVE, Clostridium difficile Toxin (PCR) NEGATIVE 08/09/19 16:54: Bedside Glucose (Misc Panel) 107 CBC/BMP Laboratory Tests 08/09/19 05:36 Microbiology Microbiology 08/07/19 Blood Culture - Preliminary, Resulted No Growth after 48 hours. All Specime... 08/07/19 Blood Culture - Preliminary, Resulted No Growth after 48 hours. All Specime... 08/06/19 Blood Culture - Preliminary, Resulted No Growth after 48 hours. All Specime... 08/03/19 Gastrointestinal Tract Panel (PCR) - Final, Complete ANGUS SHEIKH MD Aug 09, 2019 20:51
[2019-08-09 22:00] VITALS: BP 150/88
[2019-08-10] MEDS: PIPERACILLIN/TAZOBACTAM SOD 3.375 GM in D5W MINI-BAG PLUS 50 ML IV SCH ×4 (02:30→21:31)
[2019-08-10 06:00] VITALS: BP 129/75
[2019-08-10 06:20] LABS: HEMATOCRIT 32.1 % (42.0-52.0); HEMOGLOBIN 11.4 g/dl (13.5-17.5); MEAN CORPUSCULAR HEMOGLOBIN 31.7 pg (27.0-33.0); MEAN CORPUSCULAR HGB CONC 35.5 g/dl (32.0-36.5); MEAN CORPUSCULAR VOLUME 89.2 fl (80.0-96.0); PLATELET COUNT, AUTOMATED 113 10^3/uL (150-450); WHITE BLOOD COUNT 3.3 10^3/uL (4.0-10.0)
[2019-08-10 06:41] LABS: ATYPICAL LYMPH 4 % (0-5); EOSINOPHILS 2 % (0-3); LYMPHOCYTES 27 % (16-44); METAMYELOCYTES 1 % (0-0); MONOCYTES 12 % (0-5); NEUTROPHILS 54 % (28-66); PLATELET ESTIMATE DECREASED (NORMAL)
[2019-08-10 06:42] LABS: ANISOCYTOSIS 1+; POIKILOCYTOSIS 1+; POLYCHROMASIA 1+
[2019-08-10 06:44] LABS: BURR CELLS 1+; DOHLE BODIES 1+
[2019-08-10 06:45] LABS: BLOOD UREA NITROGEN 13 MG/DL (7-18); CALCIUM LEVEL 6.9 MG/DL (8.8-10.2); CARBON DIOXIDE LEVEL 31 MEQ/L (21-32); CHLORIDE LEVEL 103 MEQ/L (98-107); CREATININE FOR GFR 0.78 MG/DL (0.70-1.30); GLOMERULAR FILTRATION RATE > 60.0 (>42); GLUCOSE, FASTING 80 MG/DL (70-100); POTASSIUM SERUM 2.6 MEQ/L (3.5-5.1); SODIUM LEVEL 139 MEQ/L (136-145)
[2019-08-10] MEDS ORDERED: POTASSIUM CHLORIDE 10 MEQ SR TABLET PO ONE (07:00)
[2019-08-10] MEDS: HumaLOG INSULIN (NovoLOG) PER UNIT SC SCH ×3 (07:30→17:20)
[2019-08-10] MEDS: ASPIRIN 81 MG ENTERIC TAB PO SCH (09:04)
[2019-08-10] MEDS: ATORVASTATIN 20 MG TAB PO SCH (09:04)
[2019-08-10] MEDS: FAMOTIDINE 20 MG TAB PO SCH ×2 (09:04→21:06)
[2019-08-10] MEDS: CHLORTHALIDONE 12.5MG PER 1/2 TABLET PO SCH (09:04)
[2019-08-10] MEDS: NS 1,000 ML IV SCH ×2 (09:04→20:56)
[2019-08-10] MEDS: lisinopriL 10 MG TAB PO SCH (09:04)
[2019-08-10] MEDS: ENOXAPARIN 40 MG/0.4 ML SYRINGE (J1650) SC SCH (09:05)
[2019-08-10 09:39] LABS: MAGNESIUM LEVEL 2.5 MG/DL (1.8-2.4); PHOSPHORUS LEVEL 1.5 MG/DL (2.5-4.9)
[2019-08-10] MEDS: POTASSIUM CHLORIDE 10 MEQ SR TABLET PO SCH ×2 (11:03→21:06)
[2019-08-10] MEDS: KCL 10MEQ/100ML SWI (KRUN) 10 MEQ in IV 1 EA IV SCH ×4 (11:04→13:26)
[2019-08-10] MEDS: FILGRASTIM 300 MCG/0.5 ML SYRINGE (J1442 PER 1MCG) SC SCH (11:04)
[2019-08-10 14:00] VITALS: BP 100/65
[2019-08-10] MEDS: MAGIC MOUTHWASH SUSPENSION BTL SS PRN ×2 (15:14→21:09)
--- NOTE | 2019-08-10 18:23 | IPNPDOC ---
Date Seen The patient was seen on 08/10/19. Progress Note SUBJECTIVE: 68-year-old male with past medical history of metastatic colon cancer who was admitted for neutropenic fever and mucositis secondary to chemotherapy toxicity. Patient has been treated with Neupogen and empiric antibiotics along with IV hydration, having slight improvement but continues to have significant oral pain/discomfort and diarrhea. Patient has low oral intake due to pain/burning with swallowing. He has no other complaints at this time, denies any shortness of breath, chest pain, nausea, vomiting or headache. 08/09/19 No acute events overnight, slight improvement from yesterday although he continues to have decreased oral intake due to pain/discomfort along with profou nd diarrhea. He has no additional complaints, denies SOB, CP, N/V or abdominal pain. 08/10/19 Patient seen in the morning, reports feeling better compared to yesterday, diarrhea has significantly improved, oral intake remains low due to pain/discomfort, no other complaints. 10 point review of system is negative except for above PHYSICAL EXAMINATION: VITAL SIGNS: Please see below. GENERAL: No distress HEENT: Normocephalic, multiple ulcers noted under the tongue NECK: Supple CARDIOVASCULAR EXAMINATION: S1, S2, tachycardic RESPIRATORY EXAMINATION: Clear to auscultation, no wheezing ABDOMINAL EXAMINATION: Soft, mild diffuse tenderness, nondistended, positive bowel sounds EXTREMITIES: Range of motion intact SKIN: No rash NEUROLOGICAL EXAMINATION: Alert and oriented 3, no focal deficits PSYCHIATRIC EXAMINATION: Calm and cooperative LABORATORY DATA, IMAGING STUDIES, MICROBIOLOGY: Please see below. ASSESSMENT AND PLAN: 68-year-old male with past medical history of metastatic colon cancer on chemotherapy, admitted for neutropenic fever and mucositis secondary to toxicity of chemotherapeutic agent. PROBLEMS: 1. Neutropenic fever: Neutropenia has resolved, discontinue Neupogen, will di scontinue empiric antibiotics tomorrow, evaluated by hematology oncology. 2. Mucositis: Secondary to toxicity of chemotherapeutic agent, continue supportive care to assist with oral pain and intake, continue IV hydration. 3. Hypertension: Continue chlorthalidone and lisinopril 4. Electrolyte abnormalities: Hypokalemia and hypophosphatemia, secondary to GI loss, supplemented IV & by mouth. DVT prophylaxis: Lovenox. GI prophylaxis: Pepcid VS, I&O, 24H, Fishbone Vital Signs/I&O Vital Signs Date Time Temp Pulse Resp B/P (MAP) Pulse Ox O2 Delivery O2 Flow Rate FiO2 08/10/19 14:00 98.0 97 18 100/65 (77) 98 08/09/19 14:00 Room Air I&O- Last 24 Hours up to 6 AM 08/10/19 06:00 Intake Total 3290 ml Output Total 200 ml Balance 3090 ml Laboratory Data 24H LABS Laboratory Tests 2 08/09/19 20:48: Bedside Glucose (Misc Panel) 125H 08/10/19 05:57: Neutrophils (%) (Auto) , Nucleated Red Blood Cells % (auto) 0.0, Neutrophils 54, Lymphocytes (Manual) 27, Monocytes (Manual) 12H, Eosinophils (Manual) 2, Metamye locytes 1H, Atypical Lymphocytes 4, Polychromasia 1+, Poikilocytosis 1+, Anisocytosis 1+, Dohle Bodies 1+, Paul Cells 1+, Platelet Estimate DECREASED, Anion Gap 5L, Glomerular Filtration Rate > 60.0, Calcium Level 6.9L, Phosphorus Level 1.5L, Magnesium Level 2.5H 08/10/19 11:42: Bedside Glucose (Misc Panel) 103 08/10/19 16:38: Bedside Glucose (Misc Panel) 126H CBC/BMP Laboratory Tests 08/10/19 05:57 Microbiology Microbiology 08/07/19 Blood Culture - Preliminary, Resulted No Growth after 72 hours. All specime... 08/07/19 Blood Culture - Preliminary, Resulted No Growth after 72 hours. All specime... 08/06/19 Blood Culture - Preliminary, Resulted No Growth after 72 hours. All specime... 08/03/19 Gastrointestinal Tract Panel (PCR) - Final, Complete ANGUS SHEIKH MD Aug 10, 2019 18:22
[2019-08-10] MEDS ORDERED: POTASSIUM PHOSPHATE INJ 30 MMOL in D5W 500 ML IV ONE (19:00)
[2019-08-10 22:00] VITALS: BP 127/78
[2019-08-11] MEDS: CALCIUM CARBONATE 500 MG CHEW U/D PO PRN ×2 (00:16→14:17)
[2019-08-11] MEDS: MAGIC MOUTHWASH SUSPENSION BTL SS PRN ×2 (02:26→21:33)
[2019-08-11] MEDS: LOPERAMIDE 2 MG CAPLET PO PRN ×3 (02:26→21:25)
[2019-08-11] MEDS: PIPERACILLIN/TAZOBACTAM SOD 3.375 GM in D5W MINI-BAG PLUS 50 ML IV SCH ×2 (02:26→09:00)
[2019-08-11 06:00] VITALS: BP 129/80
[2019-08-11 06:14] LABS: HEMATOCRIT 33.7 % (42.0-52.0); MEAN CORPUSCULAR HEMOGLOBIN 32.1 pg (27.0-33.0); MEAN CORPUSCULAR HGB CONC 35.6 g/dl (32.0-36.5); MEAN CORPUSCULAR VOLUME 90.1 fl (80.0-96.0); PLATELET COUNT, AUTOMATED 141 10^3/uL (150-450); RED BLOOD COUNT 3.74 10^6/uL (4.30-6.10); WHITE BLOOD COUNT 5.8 10^3/uL (4.0-10.0)
[2019-08-11 06:36] LABS: EOSINOPHILS 1 % (0-3); LYMPHOCYTES 32 % (16-44); MONOCYTES 7 % (0-5); NEUTROPHILS 48 % (28-66)
[2019-08-11 06:37] LABS: PLATELET ESTIMATE NORMAL (NORMAL)
[2019-08-11 06:46] LABS: ALBUMIN 1.7 GM/DL (3.2-5.2); ALT/SGPT 23 U/L (12-78); BILIRUBIN,TOTAL 0.7 MG/DL (0.2-1.0); BLOOD UREA NITROGEN 13 MG/DL (7-18); CALCIUM LEVEL 7.1 MG/DL (8.8-10.2); CARBON DIOXIDE LEVEL 28 MEQ/L (21-32); CHLORIDE LEVEL 108 MEQ/L (98-107); CREATININE FOR GFR 0.81 MG/DL (0.70-1.30); GLOMERULAR FILTRATION RATE > 60.0 (>42); GLUCOSE, FASTING 93 MG/DL (70-100); MAGNESIUM LEVEL 2.2 MG/DL (1.8-2.4); PHOSPHORUS LEVEL 1.8 MG/DL (2.5-4.9); POTASSIUM SERUM 3.1 MEQ/L (3.5-5.1); SODIUM LEVEL 142 MEQ/L (136-145); TOTAL PROTEIN 4.4 GM/DL (6.4-8.2)
[2019-08-11] MEDS: NS 1,000 ML IV SCH ×2 (06:56→14:09)
[2019-08-11] MEDS: HumaLOG INSULIN (NovoLOG) PER UNIT SC SCH ×3 (07:30→17:28)
[2019-08-11] MEDS ORDERED: POTASSIUM CHLORIDE 10 MEQ SR TABLET PO ONE (09:00)
[2019-08-11] MEDS: ENOXAPARIN 40 MG/0.4 ML SYRINGE (J1650) SC SCH (09:17)
[2019-08-11] MEDS: ATORVASTATIN 20 MG TAB PO SCH (09:17)
[2019-08-11] MEDS: KCL 10MEQ/100ML SWI (KRUN) 10 MEQ in IV 1 EA IV SCH ×4 (09:17→12:39)
[2019-08-11] MEDS: CHLORTHALIDONE 12.5MG PER 1/2 TABLET PO SCH (09:17)
[2019-08-11] MEDS: lisinopriL 10 MG TAB PO SCH (09:18)
[2019-08-11] MEDS: ASPIRIN 81 MG ENTERIC TAB PO SCH (09:18)
[2019-08-11] MEDS: FAMOTIDINE 20 MG TAB PO SCH ×2 (09:18→21:25)
[2019-08-11] MEDS ORDERED: POTASSIUM PHOSPHATE INJ 30 MMOL in D5W 500 ML IV ONE (11:00)
[2019-08-11 14:00] VITALS: BP 125/81
--- NOTE | 2019-08-11 18:16 | IPNPDOC ---
Date Seen The patient was seen on 08/11/19. Progress Note SUBJECTIVE: 68-year-old male with past medical history of metastatic colon cancer who was admitted for neutropenic fever and mucositis secondary to chemotherapy toxicity. Patient has been treated with Neupogen and empiric antibiotics along with IV hydration, having slight improvement but continues to have significant oral pain/discomfort and diarrhea. Patient has low oral intake due to pain/burning with swallowing. He has no other complaints at this time, denies any shortness of breath, chest pain, nausea, vomiting or headache. 08/09/19 No acute events overnight, slight improvement from yesterday although he continues to have decreased oral intake due to pain/discomfort along with profou nd diarrhea. He has no additional complaints, denies SOB, CP, N/V or abdominal pain. 08/10/19 Patient seen in the morning, reports feeling better compared to yesterday, diarrhea has significantly improved, oral intake remains low due to pain/discomfort, no other complaints. 08/11/19 No acute events overnight, he continues to make slow but steady clinical progress, continues to have diarrhea, but decreased frequency compared to yesterday, no other complaints. 10 point review of system is negative except for above PHYSICAL EXAMINATION: VITAL SIGNS: Please see below. GENERAL: No distress HEENT: Normocephalic, multiple healing ulcers noted under the tongue NECK: Supple CARDIOVASCULAR EXAMINATION: S1, S2 RESPIRATORY EXAMINATION: Clear to auscultation, no wheezing ABDOMINAL EXAMINATION: Soft, mild diffuse tenderness, nondistended, positive bowel sounds EXTREMITIES: Range of motion intact SKIN: No rash NEUROLOGICAL EXAMINATION: Alert and oriented 3, no focal deficits PSYCHIATRIC EXAMINATION: Calm and cooperative LABORATORY DATA, IMAGING STUDIES, MICROBIOLOGY: Please see below. ASSESSMENT AND PLAN: 68-year-old male with past medical history of metastatic colon cancer on chemotherapy, admitted for neutropenic fever and mucositis secondary to toxicity of chemotherapeutic agent. PROBLEMS: 1. Neutropenic fever: Neutropenia has resolved, discontinued Neupogen yesterday, Zosyn has been discontinued, evaluated by hematology oncology. 2. Mucositis: Secondary to toxicity of chemotherapeutic agent, continue supportive care to assist with oral pain and intake, continue IV hydration. 3. Hypertension: Continue chlorthalidone and lisinopril 4. Electrolyte abnormalities: Hypokalemia and hypophosphatemia, secondary to GI loss, supplemented IV & by mouth. DVT prophylaxis: Lovenox. GI prophylaxis: Pepcid VS, I&O, 24H, Fishbone Vital Signs/I&O Vital Signs Date Time Temp Pulse Resp B/P (MAP) Pulse Ox O2 Delivery O2 Flow Rate FiO2 08/11/19 14:00 97.9 20 114 125/81 (96) 98 Room Air I&O- Last 24 Hours up to 6 AM 08/11/19 06:00 Intake Total 1467 ml Output Total 0 ml Balance 1467 ml Laboratory Data 24H LABS Laboratory Tests 2 08/10/19 20:15: Bedside Glucose (Misc Panel) 119H 08/11/19 05:57: Neutrophils (%) (Auto) , Nucleated Red Blood Cells % (auto) 0.0, Neutrophils 48, Band Neutrophils 12H, Lymphocytes (Manual) 32, Monocytes (Manual) 7H, Eosinophils (Manual) 1, Red Blood Cell Morphology NORMAL, Platelet Estimate NORMAL, Anion Gap 6L, Glomerular Filtration Rate > 60.0, Calcium Level 7.1L, Phosphorus Level 1.8L, Magnesium Level 2.2, Total Bilirubin 0.7, Aspartate Amino Transf (AST/SGOT) 21, Alanine Aminotransferase (ALT/SGPT) 23, Alkaline Phosphatase 77, Total Protein 4.4L, Albumin 1.7L, Albumin/Globulin Ratio 0.63L 08/11/19 16:50: Bedside Glucose (Misc Panel) 147H CBC/BMP Laboratory Tests 08/11/19 05:57 Microbiology Microbiology 08/07/19 Blood Culture - Preliminary, Resulted No Growth after 72 hours. All specime... 08/07/19 Blood Culture - Preliminary, Resulted No Growth after 72 hours. All specime... 08/06/19 Blood Culture - Preliminary, Resulted No Growth after 72 hours. All specime... 08/03/19 Gastrointestinal Tract Panel (PCR) - Final, Complete ANGUS SHEIKH MD Aug 11, 2019 18:16
[2019-08-11 22:00] VITALS: BP 143/89
[2019-08-12] MEDS: NS 1,000 ML IV SCH ×2 (05:22→12:23)
[2019-08-12 05:56] LABS: HEMATOCRIT 35.1 % (42.0-52.0); HEMOGLOBIN 11.9 g/dl (13.5-17.5); MEAN CORPUSCULAR HEMOGLOBIN 30.8 pg (27.0-33.0); MEAN CORPUSCULAR HGB CONC 33.9 g/dl (32.0-36.5); MEAN CORPUSCULAR VOLUME 90.9 fl (80.0-96.0); PLATELET COUNT, AUTOMATED 187 10^3/uL (150-450); RED BLOOD COUNT 3.86 10^6/uL (4.30-6.10); WHITE BLOOD COUNT 7.9 10^3/uL (4.0-10.0)
[2019-08-12 06:00] VITALS: BP 116/75
[2019-08-12 06:19] LABS: BLOOD UREA NITROGEN 8 MG/DL (7-18); CALCIUM LEVEL 7.3 MG/DL (8.8-10.2); CARBON DIOXIDE LEVEL 27 MEQ/L (21-32); CHLORIDE LEVEL 105 MEQ/L (98-107); CREATININE FOR GFR 0.72 MG/DL (0.70-1.30); GLOMERULAR FILTRATION RATE > 60.0 (>42); GLUCOSE, FASTING 95 MG/DL (70-100); MAGNESIUM LEVEL 2.1 MG/DL (1.8-2.4); PHOSPHORUS LEVEL 1.4 MG/DL (2.5-4.9); POTASSIUM SERUM 3.4 MEQ/L (3.5-5.1); SODIUM LEVEL 139 MEQ/L (136-145)
[2019-08-12 07:07] LABS: LYMPHOCYTES 26 % (16-44); MONOCYTES 11 % (0-5); NEUTROPHILS 63 % (28-66); PLATELET ESTIMATE NORMAL (NORMAL)
[2019-08-12 07:09] LABS: OVALOCYTES 1+
[2019-08-12] MEDS: HumaLOG INSULIN (NovoLOG) PER UNIT SC SCH ×3 (07:30→17:29)
[2019-08-12] MEDS: ATORVASTATIN 20 MG TAB PO SCH (08:38)
[2019-08-12] MEDS: FAMOTIDINE 20 MG TAB PO SCH ×2 (08:38→21:13)
[2019-08-12] MEDS: ASPIRIN 81 MG ENTERIC TAB PO SCH (08:38)
[2019-08-12] MEDS: lisinopriL 10 MG TAB PO SCH (08:40)
[2019-08-12] MEDS: ENOXAPARIN 40 MG/0.4 ML SYRINGE (J1650) SC SCH (08:40)
[2019-08-12] MEDS: MAGIC MOUTHWASH SUSPENSION BTL SS PRN ×3 (08:44→21:13)
[2019-08-12] MEDS: KCL 10MEQ/100ML SWI (KRUN) 10 MEQ in IV 1 EA IV SCH ×4 (08:48→13:02)
[2019-08-12] MEDS ORDERED: POTASSIUM CHLORIDE 10 MEQ SR TABLET PO ONE (09:00)
[2019-08-12] MEDS ORDERED: POTASSIUM PHOSPHATE INJ 30 MMOL in D5W 500 ML IV ONE (10:00)
[2019-08-12] MEDS: LOPERAMIDE 2 MG CAPLET PO PRN ×2 (11:10→21:13)
[2019-08-12 14:00] VITALS: BP 121/81
--- NOTE | 2019-08-12 20:01 | IPNPDOC ---
Date Seen The patient was seen on 08/12/19. Progress Note SUBJECTIVE: 68-year-old male with past medical history of metastatic colon cancer who was admitted for neutropenic fever and mucositis secondary to chemotherapy toxicity. Patient has been treated with Neupogen and empiric antibiotics along with IV hydration, having slight improvement but continues to have significant oral pain/discomfort and diarrhea. Patient has low oral intake due to pain/burning with swallowing. He has no other complaints at this time, denies any shortness of breath, chest pain, nausea, vomiting or headache. 08/09/19 No acute events overnight, slight improvement from yesterday although he continues to have decreased oral intake due to pain/discomfort along with profou nd diarrhea. He has no additional complaints, denies SOB, CP, N/V or abdominal pain. 08/10/19 Patient seen in the morning, reports feeling better compared to yesterday, diarrhea has significantly improved, oral intake remains low due to pain/discomfort, no other complaints. 08/11/19 No acute events overnight, he continues to make slow but steady clinical progress, continues to have diarrhea, but decreased frequency compared to yesterday, no other complaints. 08/12/19 No acute events overnight, continues to make slow progress, diarrhea gradually improving, no new complaints. 10 point review of system is negative except for above PHYSICAL EXAMINATION: VITAL SIGNS: Please see below. GENERAL: No distress HEENT: Normocephalic, multiple healing ulcers noted under the tongue NECK: Supple CARDIOVASCULAR EXAMINATION: S1, S2 RESPIRATORY EXAMINATION: Clear to auscultation, no wheezing ABDOMINAL EXAMINATION: Soft, no tenderness, nondistended, positive bowel sounds EXTREMITIES: Range of motion intact SKIN: No rash NEUROLOGICAL EXAMINATION: Alert and oriented 3, no focal deficits PSYCHIATRIC EXAMINATION: Calm and cooperative LABORATORY DATA, IMAGING STUDIES, MICROBIOLOGY: Please see below. ASSESSMENT AND PLAN: 68-year-old male with past medical history of metastatic colon cancer on chemotherapy, admitted for neutropenic fever and mucositis secondary to toxicity of chemotherapeutic agent. PROBLEMS: 1. Neutropenic fever: Resolved, s/p Neupogen, antibiotics discontinued, evaluated by hematology oncology. 2. Mucositis: Secondary to toxicity of chemotherapeutic agent, continue suppo rtive care to assist with oral pain and intake, continue IV hydration. 3. Hypertension: Continue lisinopril, hold chlorthalidone. 4. Electrolyte abnormalities: Hypokalemia and hypophosphatemia, secondary to GI loss, supplemented IV & by mouth. DVT prophylaxis: Lovenox. GI prophylaxis: Pepcid VS, I&O, 24H, Fishbone Vital Signs/I&O Vital Signs Date Time Temp Pulse Resp B/P (MAP) Pulse Ox O2 Delivery O2 Flow Rate FiO2 08/12/19 18:53 98.3 08/12/19 14:00 76 19 121/81 (94) 99 Room Air I&O- Last 24 Hours up to 6 AM 08/12/19 06:00 Intake Total 3440 ml Output Total 525 ml Balance 2915 ml Laboratory Data 24H LABS Laboratory Tests 2 08/12/19 05:30: Neutrophils (%) (Auto) , Nucleated Red Blood Cells % (auto) 0.3H, Neutrophils 6 3, Lymphocytes (Manual) 26, Monocytes (Manual) 11H, Ovalocytes 1+, Platelet Estimate NORMAL, Anion Gap 7L, Glomerular Filtration Rate > 60.0, Calcium Level 7.3L, Phosphorus Level 1.4#L, Magnesium Level 2.1 08/12/19 11:07: Bedside Glucose (Misc Panel) 108 08/12/19 16:47: Bedside Glucose (Misc Panel) 137H CBC/BMP Laboratory Tests 08/12/19 05:30 Microbiology Microbiology 08/07/19 Blood Culture - Final, Complete NO GROWTH AFTER 5 DAYS 08/07/19 Blood Culture - Final, Complete NO GROWTH AFTER 5 DAYS 08/06/19 Blood Culture - Final, Complete NO GROWTH AFTER 5 DAYS 08/03/19 Gastrointestinal Tract Panel (PCR) - Final, Complete ANGUS SHEIKH MD Aug 12, 2019 20:01
[2019-08-12] MEDS: ACETAMINOPHEN TAB 650MG DOSE (2X325MG) PO PRN (21:13)
[2019-08-12 22:00] VITALS: BP 126/82
[2019-08-13] MEDS: NS 1,000 ML IV SCH (02:09)
[2019-08-13 06:00] VITALS: BP 136/72
[2019-08-13 06:11] LABS: HEMATOCRIT 39.1 % (42.0-52.0); HEMOGLOBIN 13.2 g/dl (13.5-17.5); MEAN CORPUSCULAR HEMOGLOBIN 31.4 pg (27.0-33.0); MEAN CORPUSCULAR HGB CONC 33.8 g/dl (32.0-36.5); MEAN CORPUSCULAR VOLUME 93.1 fl (80.0-96.0); PLATELET COUNT, AUTOMATED 261 10^3/uL (150-450); WHITE BLOOD COUNT 8.3 10^3/uL (4.0-10.0)
[2019-08-13 06:47] LABS: ALBUMIN 1.9 GM/DL (3.2-5.2); ALT/SGPT 26 U/L (12-78); BILIRUBIN,TOTAL 0.5 MG/DL (0.2-1.0); BLOOD UREA NITROGEN 7 MG/DL (7-18); CALCIUM LEVEL 7.3 MG/DL (8.8-10.2); CARBON DIOXIDE LEVEL 30 MEQ/L (21-32); CHLORIDE LEVEL 106 MEQ/L (98-107); CREATININE FOR GFR 0.86 MG/DL (0.70-1.30); GLOMERULAR FILTRATION RATE > 60.0 (>42); GLUCOSE, FASTING 103 MG/DL (70-100); MAGNESIUM LEVEL 2.1 MG/DL (1.8-2.4); SODIUM LEVEL 139 MEQ/L (136-145); TOTAL PROTEIN 5.3 GM/DL (6.4-8.2)
[2019-08-13] MEDS: ENOXAPARIN 40 MG/0.4 ML SYRINGE (J1650) SC SCH (08:24)
[2019-08-13] MEDS: HumaLOG INSULIN (NovoLOG) PER UNIT SC SCH ×3 (08:24→17:57)
[2019-08-13] MEDS: FAMOTIDINE 20 MG TAB PO SCH ×2 (08:24→20:14)
[2019-08-13] MEDS: ATORVASTATIN 20 MG TAB PO SCH (08:24)
[2019-08-13] MEDS: lisinopriL 10 MG TAB PO SCH (08:25)
[2019-08-13] MEDS: ASPIRIN 81 MG ENTERIC TAB PO SCH (08:26)
[2019-08-13] MEDS: MAGIC MOUTHWASH SUSPENSION BTL SS PRN ×2 (08:26→15:50)
[2019-08-13] MEDS ORDERED: POTASSIUM PHOSPHATE INJ 30 MMOL in D5W 500 ML IV ONE (10:00)
[2019-08-13 14:00] VITALS: BP 113/83
--- NOTE | 2019-08-13 18:46 | IPNPDOC ---
Date Seen The patient was seen on 08/13/19. Progress Note SUBJECTIVE: 68-year-old male with past medical history of metastatic colon cancer who was admitted for neutropenic fever and mucositis secondary to chemotherapy toxicity. Patient has been treated with Neupogen and empiric antibiotics along with IV hydration, having slight improvement but continues to have significant oral pain/discomfort and diarrhea. Patient has low oral intake due to pain/burning with swallowing. He has no other complaints at this time, denies any shortness of breath, chest pain, nausea, vomiting or headache. 08/09/19 No acute events overnight, slight improvement from yesterday although he continues to have decreased oral intake due to pain/discomfort along with profou nd diarrhea. He has no additional complaints, denies SOB, CP, N/V or abdominal pain. 08/10/19 Patient seen in the morning, reports feeling better compared to yesterday, diarrhea has significantly improved, oral intake remains low due to pain/discomfort, no other complaints. 08/11/19 No acute events overnight, he continues to make slow but steady clinical progress, continues to have diarrhea, but decreased frequency compared to yesterday, no other complaints. 08/12/19 No acute events overnight, continues to make slow progress, diarrhea gradually improving, no new complaints. 08/13/19 No acute events overnight, definitely making significant clinical improvement on a daily basis, only 2 episodes of diarrhea today, oral intake has improved with healing of oral ulcers, no new complaints. 10 point review of system is negative except for above PHYSICAL EXAMINATION: VITAL SIGNS: Please see below. GENERAL: No distress HEENT: Normocephalic, multiple healing ulcers noted under the tongue NECK: Supple CARDIOVASCULAR EXAMINATION: S1, S2 RESPIRATORY EXAMINATION: Clear to auscultation, no wheezing ABDOMINAL EXAMINATION: Soft, no tenderness, nondistended, positive bowel sounds EXTREMITIES: Range of motion intact SKIN: No rash NEUROLOGICAL EXAMINATION: Alert and oriented 3, no focal deficits PSYCHIATRIC EXAMINATION: Calm and cooperative LABORATORY DATA, IMAGING STUDIES, MICROBIOLOGY: Please see below. ASSESSMENT AND PLAN: 68-year-old male with past medical history of metastatic colon cancer on chemotherapy, admitted for neutropenic fever and mucositis secondary to toxicity of chemotherapeutic agent. PROBLEMS: 1. Neutropenic fever: Resolved, s/p Neupogen, antibiotics discontinued, evaluated by hematology oncology. 2. Mucositis: Secondary to toxicity of chemotherapeutic agent, continue supportive care to assist with oral pain and intake, discontinue IV fluids. 3. Hypertension: Continue lisinopril, hold chlorthalidone. 4. Hypophosphatemia: Supplemented IV DVT prophylaxis: Lovenox. GI prophylaxis: Pepcid VS, I&O, 24H, Fishbone Vital Signs/I&O Vital Signs Date Time Temp Pulse Resp B/P (MAP) Pulse Ox O2 Delivery O2 Flow Rate FiO2 08/13/19 14:00 98.8 105 16 113/83 (93) 98 Room Air I&O- Last 24 Hours up to 6 AM 08/13/19 06:00 Intake Total 3510 ml Output Total 1625 ml Balance 1885 ml Laboratory Data 24H LABS Laboratory Tests 2 08/12/19 21:03: Bedside Glucose (Misc Panel) 129H 08/13/19 05:49: Nucleated Red Blood Cells % (auto) 0.7H, Anion Gap 3L, Glomerular Filtration Rate > 60.0, Calcium Level 7.3L, Phosphorus Level 2.0#L, Magnesium Level 2.1, Total Bilirubin 0.5, Aspartate Amino Transf (AST/SGOT) 24, Alanine Aminotransferase (ALT/SGPT) 26, Alkaline Phosphatase 179H, Total Protein 5.3#L, Albumin 1.9L, Albumin/Globulin Ratio 0.56L 08/13/19 11:54: Bedside Glucose (Misc Panel) 134H 08/13/19 16:40: Bedside Glucose (Misc Panel) 118H CBC/BMP Laboratory Tests 08/13/19 05:49 Microbiology Microbiology 08/07/19 Blood Culture - Final, Complete NO GROWTH AFTER 5 DAYS 08/07/19 Blood Culture - Final, Complete NO GROWTH AFTER 5 DAYS 08/06/19 Blood Culture - Final, Complete NO GROWTH AFTER 5 DAYS 08/03/19 Gastrointestinal Tract Panel (PCR) - Final, Complete ANGUS SHEIKH MD Aug 13, 2019 18:46
[2019-08-13 22:00] VITALS: BP 150/92
[2019-08-13] MEDS: ACETAMINOPHEN TAB 650MG DOSE (2X325MG) PO PRN (22:45)
[2019-08-14 06:00] VITALS: BP 130/80
[2019-08-14 06:21] LABS: HEMATOCRIT 35.1 % (42.0-52.0); HEMOGLOBIN 12.2 g/dl (13.5-17.5); MEAN CORPUSCULAR HGB CONC 34.8 g/dl (32.0-36.5); MEAN CORPUSCULAR VOLUME 92.1 fl (80.0-96.0); PLATELET COUNT, AUTOMATED 255 10^3/uL (150-450); RED BLOOD COUNT 3.81 10^6/uL (4.30-6.10); WHITE BLOOD COUNT 6.4 10^3/uL (4.0-10.0)
[2019-08-14 06:55] LABS: BLOOD UREA NITROGEN 6 MG/DL (7-18); CALCIUM LEVEL 7.3 MG/DL (8.8-10.2); CARBON DIOXIDE LEVEL 28 MEQ/L (21-32); CHLORIDE LEVEL 105 MEQ/L (98-107); CREATININE FOR GFR 0.76 MG/DL (0.70-1.30); GLOMERULAR FILTRATION RATE > 60.0 (>42); GLUCOSE, FASTING 101 MG/DL (70-100); MAGNESIUM LEVEL 1.9 MG/DL (1.8-2.4); PHOSPHORUS LEVEL 2.2 MG/DL (2.5-4.9); POTASSIUM SERUM 3.3 MEQ/L (3.5-5.1); SODIUM LEVEL 137 MEQ/L (136-145)
[2019-08-14] MEDS: ATORVASTATIN 20 MG TAB PO SCH (08:48)
[2019-08-14] MEDS: HumaLOG INSULIN (NovoLOG) PER UNIT SC SCH ×3 (08:48→17:29)
[2019-08-14] MEDS: ENOXAPARIN 40 MG/0.4 ML SYRINGE (J1650) SC SCH (08:49)
[2019-08-14] MEDS: lisinopriL 10 MG TAB PO SCH (08:49)
[2019-08-14] MEDS: FAMOTIDINE 20 MG TAB PO SCH ×2 (08:49→20:06)
[2019-08-14] MEDS: ASPIRIN 81 MG ENTERIC TAB PO SCH (08:49)
[2019-08-14] MEDS ORDERED: POTASSIUM CHLORIDE 10 MEQ SR TABLET PO ONE (09:00)
[2019-08-14] MEDS ORDERED: POTASSIUM PHOSPHATE INJ 30 MMOL in D5W 500 ML IV ONE (10:00)
[2019-08-14 14:00] VITALS: BP 124/79
[2019-08-14] MEDS: MAGIC MOUTHWASH SUSPENSION BTL SS PRN (18:54)
[2019-08-14] MEDS: LOPERAMIDE 2 MG CAPLET PO PRN (20:06)
[2019-08-14 22:00] VITALS: BP 123/79
--- NOTE | 2019-08-14 22:31 | IPNPDOC ---
Date Seen The patient was seen on 08/14/19. Progress Note SUBJECTIVE: 68-year-old male with past medical history of metastatic colon cancer who was admitted for neutropenic fever and mucositis secondary to chemotherapy toxicity. Neutropenia has resolved with significant improvement in Mucositis. Patient had profound diarrhea, GI panel negative with significant gradual improvement with imodium. He had severe electrolyte deficiencies secondary to diarrhea which have been supplemented aggressively, as needed. He continues to make good clinical improvement, diarrhea is slowing down and oral intake has improved. Patient has no other complaints at this time. 10 point review of system is negative except for above PHYSICAL EXAMINATION: VITAL SIGNS: Please see below. GENERAL: No distress HEENT: Normocephalic, multiple healing ulcers noted under the tongue NECK: Supple CARDIOVASCULAR EXAMINATION: S1, S2 RESPIRATORY EXAMINATION: Clear to auscultation, no wheezing ABDOMINAL EXAMINATION: Soft, no tenderness, nondistended, positive bowel sounds EXTREMITIES: Range of motion intact SKIN: No rash NEUROLOGICAL EXAMINATION: Alert and oriented 3, no focal deficits PSYCHIATRIC EXAMINATION: Calm and cooperative LABORATORY DATA, IMAGING STUDIES, MICROBIOLOGY: Please see below. ASSESSMENT AND PLAN: 68-year-old male with past medical history of metastatic colon cancer on chemotherapy, admitted for neutropenic fever and mucositis secondary to toxicity of chemotherapeutic agent. PROBLEMS: 1. Neutropenic fever: Resolved, s/p Neupogen, antibiotics discontinued, evaluated by hematology oncology. 2. Mucositis: Secondary to toxicity of chemotherapeutic agent, continue supportive care, oral intake with significant improvement. 3. Hypertension: Continue lisinopril, will restart chlorthalidone tomorrow if oral intake is adequate. 4. Hypophosphatemia/Hypokalemia: Supplemented IV/PO DVT prophylaxis: Lovenox. GI prophylaxis: Pepcid VS, I&O, 24H, Fishbone Vital Signs/I&O Vital Signs Date Time Temp Pulse Resp B/P (MAP) Pulse Ox O2 Delivery O2 Flow Rate FiO2 08/14/19 14:00 99.0 103 20 124/79 (94) 99 Room Air I&O- Last 24 Hours up to 6 AM 08/14/19 06:00 Intake Total 2540 ml Output Total 1445 ml Balance 1095 ml Laboratory Data 24H LABS Laboratory Tests 2 08/14/19 05:41: Nucleated Red Blood Cells % (auto) 0.6H 08/14/19 05:42: Anion Gap 4L, Glomerular Filtration Rate > 60.0, Calcium Level 7.3L, Phosphorus Level 2.2L, Magnesium Level 1.9 08/14/19 11:44: Bedside Glucose (Misc Panel) 133H 08/14/19 17:22: Bedside Glucose (Misc Panel) 129H CBC/BMP Laboratory Tests 08/14/19 05:41 08/14/19 05:42 Microbiology Microbiology 08/13/19 Blood Culture, Received Pending 08/13/19 Blood Culture, Received Pending 08/07/19 Blood Culture - Final, Complete NO GROWTH AFTER 5 DAYS 08/07/19 Blood Culture - Final, Complete NO GROWTH AFTER 5 DAYS 08/06/19 Blood Culture - Final, Complete NO GROWTH AFTER 5 DAYS ANGUS SHEIKH MD Aug 14, 2019 22:30
[2019-08-15 06:00] VITALS: BP 119/78
[2019-08-15 06:03] LABS: HEMATOCRIT 35.8 % (42.0-52.0); HEMOGLOBIN 12.2 g/dl (13.5-17.5); MEAN CORPUSCULAR HEMOGLOBIN 31.4 pg (27.0-33.0); MEAN CORPUSCULAR HGB CONC 34.1 g/dl (32.0-36.5); MEAN CORPUSCULAR VOLUME 92.3 fl (80.0-96.0); PLATELET COUNT, AUTOMATED 307 10^3/uL (150-450); RED BLOOD COUNT 3.88 10^6/uL (4.30-6.10); WHITE BLOOD COUNT 6.2 10^3/uL (4.0-10.0)
[2019-08-15 06:14] LABS: BLOOD UREA NITROGEN 8 MG/DL (7-18); CALCIUM LEVEL 7.4 MG/DL (8.8-10.2); CARBON DIOXIDE LEVEL 28 MEQ/L (21-32); CHLORIDE LEVEL 107 MEQ/L (98-107); CREATININE FOR GFR 0.76 MG/DL (0.70-1.30); GLOMERULAR FILTRATION RATE > 60.0 (>42); GLUCOSE, FASTING 98 MG/DL (70-100); MAGNESIUM LEVEL 1.9 MG/DL (1.8-2.4); PHOSPHORUS LEVEL 2.3 MG/DL (2.5-4.9); POTASSIUM SERUM 4.3 MEQ/L (3.5-5.1); SODIUM LEVEL 141 MEQ/L (136-145)
[2019-08-15] MEDS: HumaLOG INSULIN (NovoLOG) PER UNIT SC SCH ×3 (07:30→17:43)
[2019-08-15] MEDS: ATORVASTATIN 20 MG TAB PO SCH (08:15)
[2019-08-15] MEDS: LIDOCAINE VISCOUS 2% SOLN 15ML UDC SS PRN (08:15)
[2019-08-15] MEDS: ASPIRIN 81 MG ENTERIC TAB PO SCH (08:15)
[2019-08-15] MEDS: LOPERAMIDE 2 MG CAPLET PO PRN (08:15)
[2019-08-15] MEDS: FAMOTIDINE 20 MG TAB PO SCH (08:15)
[2019-08-15 08:17] VITALS: BP 118/81
[2019-08-15] MEDS: ENOXAPARIN 40 MG/0.4 ML SYRINGE (J1650) SC SCH (08:17)
[2019-08-15] MEDS: lisinopriL 10 MG TAB PO SCH (08:17)
[2019-08-15] MEDS ORDERED: CHLORTHALIDONE 12.5MG PER 1/2 TABLET PO SCH (09:00)
[2019-08-15] MEDS ORDERED: FAMO20TA PO (10:44)
[2019-08-15] MEDS ORDERED: MAGICMW SS (10:44)
[2019-08-15] MEDS ORDERED: POTASSIUM PHOSPHATE INJ 30 MMOL in D5W 500 ML IV ONE (12:00)
[2019-08-15] MEDS: MAGIC MOUTHWASH SUSPENSION BTL SS PRN (12:44)
[2019-08-15 14:00] VITALS: BP 116/79
--- NOTE | 2019-08-15 16:39 | DS.PDOC ---
Discharge Summary General Date of Admission Aug 03, 2019 at 14:46 Date of Discharge August 15, 2019 Attending Physician: ANGUS SHEIKH MD Specialist/Consultants Involve: DARON PICKARD MD Discharge Summary PROCEDURES PERFORMED DURING STAY: [None]. ADMITTING DIAGNOSES: 1. Mucosistis 2/2 chemotherapy DISCHARGE DIAGNOSES: 1. Neutropenia 2/2 chemotherapy, resolved 2. Mucositis 2/2 chemotherapy COMPLICATIONS/CHIEF COMPLAINT: Chemotherapy Adverse Reaction. HISTORY OF PRESENT ILLNESS: Patient is 68 year old male with medical history of adenocarcinoma of the lung, DM, HTN, HLD, CAD presents to the ER with complaints of mouth pain and sores for the past few days. He was reportedly diagnosed with adecocarcinoma of colon s/p partial colectomy on chemotherapy since 2018 and was started on a new agent recently Xeloda and had noticed development of sores in his mouth and diarrhea. Stated that he has not been eating anything for the past 4 days because of pain but tries to drink as much water as possible to keep himself hydrated. He also reports some nausea but denies any other complaints including chest pain, SOB, fever, chills, vomiting. HOSPITAL COURSE: The patient presented with mouth sores and diarrhea, found to have mucositis and presumed side effect from chemotherapy. He was started on IVF hydration. Shortly after admission he was found to have neutropenia and fevers with ANC <500. Oncology was consulted and the patient was started on Neupogen. Blood cultures were negative and there was no obvious sign of infection. The patient was found to have hypokalemia and hypophosphatemia presumed from GI loss. These were agressively replaced. WBC eventually increased and the patient's diarrhea improved. On the day of discharge he was able to tolerate food, labs were mostly WNL and his diarrhea had resolved. DISCHARGE MEDICATIONS: Please see below. ALLERGIES: Please see below. PHYSICAL EXAMINATION ON DISCHARGE: VITAL SIGNS: Please see below. GENERAL: No distress HEENT: Normocephalic, multiple healing ulcers noted under the tongue NECK: Supple CARDIOVASCULAR EXAMINATION: S1, S2 RESPIRATORY EXAMINATION: Clear to auscultation, no wheezing ABDOMINAL EXAMINATION: Soft, no tenderness, nondistended, positive bowel sounds EXTREMITIES: Range of motion intact SKIN: No rash NEUROLOGICAL EXAMINATION: Alert and oriented 3, no focal deficits PSYCHIATRIC EXAMINATION: Calm and cooperative LABORATORY DATA: Please see below. IMAGING: CXR (08/07/2019): Findings: The mediastinum and cardiac silhouette are stable and within normal limits for portable technique. [id number] identified with tip in the SVC. The lung florence are clear without acute consolidation, effusion, or pneumothorax. Skeletal structures are intact. Impression: No acute cardiopulmonary process appreciated. CT ABD/PEL W/IV ORAL CONTRAS 03/01/2019 8:25 AM FINDINGS: Lungs: Small calcified granuloma left lower lobe. Bilateral nodular opacities at the lung bases with small central cystic components measuring up to 6 mm in the left lower lobe. Findings may represent metastatic disease with central necrosis although abscesses can present in a similar fashion in the appropriate clinical setting. Nodules have increased slightly in size and as such the finding favors neoplasm. Several other smaller solid noncalcified pulmonary parenchymal nodules demonstrated at the lung bases measuring up to 3.3 mm in the right lower lobe either postinflammatory or neoplastic. Mediastinum: A small sliding hiatal hernia is present. Liver: There is a diffuse decrease in hepatic parenchymal density, consistent with steatosis. There is a small stable 7 mm hypodensity at the anterior edge of the lateral segment left lobe of the liver which on coronal imaging appears to represent a cyst. No other focal abnormalities demonstrated. Gallbladder and bile ducts: There are gallstones in the gallbladder demonstrating a thickened wall. Finding may be related to incomplete distention although chronic cholecystitis should be considered clinically. Pancreas: Partial fatty replacement of the pancreatic head. Pancreas otherwise unremarkable. Spleen: Normal. No splenomegaly. Adrenals: Normal. No mass. Kidneys and ureters: Normal. No hydronephrosis. Stomach and bowel: There is abnormal thickening of several small bowel loops in the right lower quadrant, associated with engorgement of the Vasa recta, findings consistent with inflammatory bowel disease. Multiple foci of segmental thickening of the colon throughout its course, findings consistent with multifocal segmental colitis. Inflammatory changes demonstrated in the left colon may indicate acute inflammation. No abscess demonstrated. Increased colonic fluid consistent with diarrhea. Status post subtotal right hemicolectomy. Appendix: No evidence of appendicitis. Intraperitoneal space: Unremarkable. No free air. No significant fluid collection. Vasculature: The aorta demonstrates moderate atherosclerotic calcification. Lymph nodes: Unremarkable. No enlarged lymph nodes. Bladder: Unremarkable as visualized. Reproductive: The prostate gland demonstrates moderate hyperplasia. Bones/joints: Moderate central spinal stenosis L3-L4 and moderate to severe central spinal stenosis L4-L5. The spine demonstrates mild degenerative changes. Soft tissues: Unremarkable. IMPRESSION: 1. Several centrally cystic nodules in the lung bases measuring up to 6 mm increasing in size, most consistent with metastatic disease. Follow-up suggested as clinically directed. 2. There is a diffuse decrease in hepatic parenchymal density, consistent with steatosis. There is a small stable 7 mm hypodensity at the anterior edge of the lateral segment left lobe of the liver which on coronal imaging appears to represent a cyst. No other focal abnormalities demonstrated. 3. There are gallstones in the gallbladder demonstrating a thickened wall. Finding may be related to incomplete distention although chronic cholecystitis should be considered clinically. 4. A small sliding hiatal hernia is present. 5. Moderate prostatic hyperplasia. 6. There is abnormal thickening of several small bowel loops in the right lower quadrant, associated with engorgement of the Vasa recta, findings consistent with inflammatory bowel disease. 7. Multiple foci of segmental thickening of the colon throughout its course, findings consistent with multifocal segmental colitis. Inflammatory changes demonstrated in the left colon may indicate acute inflammation. No abscess demonstrated. Increased colonic fluid consistent with diarrhea. Status post subtotal right hemicolectomy. PROGNOSIS: fair ACTIVITY: [As tolerated]. DIET: as tolerated DISCHARGE PLAN: home DISPOSITION: . DISCHARGE INSTRUCTIONS: 1. Follow up with Oncology 2. Establish with [facility] ITEMS TO FOLLOWUP ON ON OUTPATIENT: 1. none DISCHARGE CONDITION: [Stable]. TIME SPENT ON DISCHARGE: Greater than 40 minutes. Attending Addendum: I discussed the care/management of this patient with Resident in detail and agree with the plan above. Vital Signs/I&Os Vital Signs Date Time Temp Pulse Resp B/P (MAP) Pulse Ox O2 Delivery O2 Flow Rate FiO2 08/15/19 08:17 118/81 08/15/19 06:00 98.8 117 18 98 08/14/19 14:00 Room Air I&O- Last 24 Hours up to 6 AM 08/15/19 06:00 Intake Total 1680 ml Output Total 850 ml Balance 830 ml Laboratory Data Labs 24H Laboratory Tests 2 08/14/19 17:22: Bedside Glucose (Misc Panel) 129H 08/15/19 05:22: Nucleated Red Blood Cells % (auto) 0.5H, Anion Gap 6L, Glomerular Filtration Rate > 60.0, Calcium Level 7.4L, Phosphorus Level 2.3L, Magnesium Level 1.9 08/15/19 11:58: Bedside Glucose (Misc Panel) 105 CBC/BMP Laboratory Tests 08/15/19 05:22 FSBS Laboratory Tests Test 08/14/19 17:22 08/15/19 11:58 Range/Units Bedside Glucose (Misc Panel) 129 105 83-110 MG/DL Microbiology Microbiology 08/13/19 Blood Culture - Preliminary, Resulted No growth after 24 hours . All specim... 08/13/19 Blood Culture - Preliminary, Resulted No growth after 24 hours . All specim... 08/07/19 Blood Culture - Final, Complete NO GROWTH AFTER 5 DAYS 08/07/19 Blood Culture - Final, Complete NO GROWTH AFTER 5 DAYS 08/06/19 Blood Culture - Final, Complete NO GROWTH AFTER 5 DAYS Discharge Medications Scheduled Aspirin (Aspirin EC) 81 Mg Tab, 81 MG PO DAILY, (Reported) Atorvastatin Calcium (Atorvastatin Calcium) 40 Mg Tab, 40 MG PO DAILY, (Reported) Capecitabine (Xeloda) 500 Mg Tablet, 500 MG PO BID for colon cancer Take 4 tablets = 2000 mg po qam and 5 tablets = 2500 mg po q pm for 14 days, then 7 days off Chlorthalidone (Chlorthalidone) 25 Mg Tablet, 12.5 MG PO DAILY, (Reported) Famotidine (Famotidine) 20 Mg Tablet, 20 MG PO BID Lisinopril (Lisinopril) 10 Mg Tab, 10 MG PO DAILY, (Reported) Scheduled PRN Magic Mouthwash (First-Mouthwash Blm) 1 Ea Susp, 1 EA SS Q4HP PRN for DISCOMFORT Allergies Coded Allergies: metformin (Verified Adverse Reaction, Unknown, Dizziness, 08/10/18) GME ATTESTATION GME ATTESTATION My faculty preceptor for this patient encounter was physically present during the encounter and was fully available. All aspects of the patient interview, examination, medical decision making process, and medical care plan development were reviewed and approved by the faculty preceptor. The faculty preceptor is aware and concurs with the plan as stated in the body of this note and will attest to such by his/her cosignature. GERMAN CELESTE MD Aug 15, 2019 13:13 ANGUS SHEIKH MD Aug 16, 2019 20:23
== END 2019-08-15 18:12 | disposition home or self-care (01) | DRG 809 ==
LOC: M ED 09:43 → M ED INP 14:46 → ENRESERV 15:22 → M MSPAV 16:00
PROVIDERS: ADMIT Student in an Organized Health Care Education/Training Program; ATTEND Internal Medicine
DX: D70.1 Agranulocytosis secondary to cancer chemotherapy (principal); C34.90 Malignant neoplasm of unspecified part of unspecified bronchus or lung; C78.00 Secondary malignant neoplasm of unspecified lung; C78.7 Secondary malignant neoplasm of liver and intrahepatic bile duct; C77.2 Secondary and unspecified malignant neoplasm of intra-abdominal lymph nodes; K12.32 Oral mucositis (ulcerative) due to other drugs; T45.1X5A Adverse effect of antineoplastic and immunosuppressive drugs, initial encounter; E11.51 Type 2 diabetes mellitus with diabetic peripheral angiopathy without gangrene; I25.10 Atherosclerotic heart disease of native coronary artery without angina pectoris; E87.6 Hypokalemia; E83.39 Other disorders of phosphorus metabolism; K44.9 Diaphragmatic hernia without obstruction or gangrene; Z79.82 Long term (current) use of aspirin; Z79.899 Other long term (current) drug therapy; Z88.8 Allergy status to other drugs, medicaments and biological substances; R19.7 Diarrhea, unspecified; I10 Essential (primary) hypertension; D61.810 Antineoplastic chemotherapy induced pancytopenia; Z87.891 Personal history of nicotine dependence; E78.5 Hyperlipidemia, unspecified; K21.9 Gastro-esophageal reflux disease without esophagitis

== ENCOUNTER → 2019-11-02 | Outpatient (CLI) | payer MEDICARE ==
[~2019-11-02] MED LIST changes: +CHLO25TA PO; +FAMO20TA PO; +LISI10TA22 PO; -LISI10TA4 PO; +MAGICMW SS
--- NOTE | 2019-11-02 12:21 | REP ---
DUPLEX CAROTID SONOGRAPHY: HISTORY: Occlusion and stenosis. Left carotid artery. FINDINGS: Antegrade flow is observed in both vertebral arteries. RIGHT CAROTID: The right common carotid artery is unremarkable on two-dimensional scanning. There is mild mixed plaquing in the bulb and proximal ICA on the right. Color flow and spectral Doppler interrogation are unremarkable on the right. Velocity Chart Right Carotid: PSV EDV Right CCA 125 cm/s Right ICA 82 cm/s 25 cm/s Right ECA 87 cm/s Right ICA/CCA ratio normal 0.7. IMPRESSION: Less than 50% category narrowing in the right ICA by Doppler velocity criteria. Velocities have not increased significantly since the prior study of June 03, 2017. LEFT CAROTID: The left common carotid artery is unremarkable. There is moderate mixed plaquing on the left and the left internal carotid artery is again noted to be occluded. Velocity Chart Left Carotid: PSV EDV Left CCA 75 cm/s Left ICA 0 0 Left ECA 88 cm/s Left ICA/CCA ratio 0 IMPRESSION: Left ICA occlusion again noted. Electronically Signed by Alden Chaney MD 11/02/2019 01:37 P
== END ==
LOC: M RAD 06:51
PROVIDERS: ATTEND Physician Assistant
DX: I65.22 Occlusion and stenosis of left carotid artery (principal)

== ENCOUNTER → 2020-10-21 | Outpatient (CLI) | payer MEDICARE ==
[2020-10-21 17:59] LABS: BLOOD UREA NITROGEN 18 MG/DL (7-18); CALCIUM LEVEL 9.2 MG/DL (8.8-10.2); CARBON DIOXIDE LEVEL 28 MEQ/L (21-32); CHLORIDE LEVEL 108 MEQ/L (98-107); CHOLESTEROL LEVEL 113 MG/DL (<200); CHOLESTEROL RISK RATIO 2.897 (<5); GLOMERULAR FILTRATION RATE > 60.0 (>42); GLUCOSE, FASTING 111 MG/DL (70-100); HDL CHOLESTEROL 39 MG/DL (>40); LDL CHOLESTEROL 59 MG/DL (<100); MAGNESIUM LEVEL 2.5 MG/DL (1.8-2.4); NON-HDL-C 74 MG/DL; POTASSIUM SERUM 5.1 MEQ/L (3.5-5.1); SODIUM LEVEL 143 MEQ/L (136-145); TRIGLYCERIDES LEVEL 73 MG/DL (<150)
== END ==
LOC: M WUC 08:41
PROVIDERS: ATTEND Physician Assistant
DX: E78.5 Hyperlipidemia, unspecified (principal); R94.31 Abnormal electrocardiogram [ECG] [EKG]

== ENCOUNTER 2021-04-19 10:53 | Emergency (ER) | payer MEDICARE ==
[~2021-04-19] VITALS: Ht 170.2 cm; Wt 62.1 kg
--- OUTSIDE RECORDS SUMMARY | 2021-04-19 11:00 | CCD | Continuity of Care Document ---
Author Author Nura MONTERO MD Organization Unknown Address [place] [address] Phone [phone] Care Team Providers Care Ship'S Engineer Name Role Phone Roro Hill MD [facility] [phone] Problems Active Problems Provider Date Dietary management surveillance Adria Montero MD Onset: 0 12/07/2016 Precordial pain Adria Montero MD Onset: 12/07/2016 Electrocardiogram abnormal Adria Montero MD Onset: 2016 Left bundle branch block Adria Montero MD Onset: 12/08/19 17 Hyperlipidemia Adria Montero MD Onset: 12/07/2016 Heart murmur Adria Montero MD Onset: 12/07/2016 Syncope and collapse Adria Montero MD Onset: 07/22/2017 Carotid artery occlusion Adria Montero MD Onset: 07/23/19 18 Essential hypertension JOZEF Del Valle Onset: 8 Chest pain JOZEF Ford Onset: 10/15/2020 Social History Type Date Description Comments Sex Unknown ETOH Use Does not consume alcohol Tobacco Use Start: Unknown Patient has never smoked Smoking Status Reviewed: 10/15/20 Patient has never smoked Exercise Type/Frequency Does housework 3 times a week Exercise Type/Frequency Does yardwork three time s a week Exercise Type/Frequency Walks sporadically Exercise Type/Frequency elliptical 2 x a we ek for a half hour on occasions Exercise Limitations Fatigue Allergies and adverse reactions Active Allergies Criticality Reaction | Severity Comments Date Metformin Unable to assess criticality Dizziness 08/23/2018 Inactive Allergies NKDA Unable to assess criticality 2006 Medications Active Medications SIG Qnty Indications Ordering Provide r Date Esomeprazole Magnesium 20mg Capsul es DR 1 by mouth every day 90caps Unknown 07/30/2020 Lisinopril 10mg Tablets take one tablet by mouth every day 90tabs I10 Zana Lama MD 08/22/2018 Multivitamin Adult Tablets 1 by mouth every day Unknown 07/21/2017 Lipitor 40mg Tablets 1 by mouth every day 90tabs Adria Montero MD 12/07/2016 Aspirin Childrens 81mg Chewtabs 1 by mouth every day 90units R07.2 Adria Montero MD 12/07/2016 Immunizations Description No Information Available Vital Signs Date Vital Result Comment 10/15/2020 1:24pm Weight 145.00 lb Height 66 inches 5'6" BMI (Body Mass Index) 23.4 kg/m2 Heart Rate 81 /min BP Systolic Sitting 102 mmHg LA, medium cuff | 10 repeat BP Diastolic Sitting 64 mmHg LA, medium cuff | 1 repeat 10/12/2019 11:38am Weight 129.00 lb Home Weight 126lb Height 66 inches 5'6" BMI (Body Mass Index) 20.8 kg/m2 Heart Rate 90 /min BP Systolic Sitting 106 mmHg BP Diastolic Sitting 56 mmHg Results Test Acquired Date Facility Test Result H/L Range Note BMP 10/21/2020 [facility] [phone] Glucose, Fasting 111 mg/dL High 70-100 Blood Urea Nitrogen 18 mg/dL Normal 7-18 Creatinine For GFR 1.10 mg/dL Normal 0.70-1.30 Glomerular Filtration Rate > 60.0 Normal >42 1 Sodium Level 143 mEq/L Normal 136-145 Potassium Serum 5.1 mEq/L Normal 3.5-5.1 Chloride Level 108 mEq/L High 98-107 Carbon Dioxide Level 28 mEq/L Normal 21-32 Anion Gap 7 mEq/L Low 8-16 Calcium Level 9.2 mg/dL Normal 8.8-10.2 Lipid Panel 10/21/2020 [facility] [phone] Triglycerides Level 73 mg/dL Normal <150 Cholesterol Level 113 mg/dL Normal <200 HDL Cholesterol 39 mg/dL Low >40 LDL Cholesterol 59 mg/dL Normal <100 Non-HDL-C 74 mg/dL Normal Cholesterol Risk Ratio 2.897 Normal <5 Laboratory test finding 10/21/2020 [facility] [phone] Magnesium Level 2.5 mg/dL High 1.8-2.4 1 Units are mL/min/1.73 m2 Chronic Kidney Disease Staging per NKF: Stage I & II GFR >=60 Normal to Mildly Decreased Stage III GFR 30-59 Moderately Decreased Stage IV GFR 15-29 Severely Decreased Stage V GFR <15 Very Little GFR Left ESRD GFR <15 on [employer] Procedures Date Code Description Status 01/31/2021 95100 Chronic Care MGMT 20 Mins Clinical Staff Time Per Calendar Month Completed 01/31/2021 07505 Chronic Care Management Services Ea Addl 20 Min Completed 12/13/2020 93500 Chronic Care MGMT 20 Mins Clinical Staff Time Per Calendar Month Completed 11/11/2020 56451 Chronic Care MGMT 20 Mins Clinical Staff Time Per Calendar Month Completed 10/15/2020 80128 Office/Outpatient Established Mo d MDM 30-39 Min Completed 10/15/2020 88717 ECG 12-Lead Completed 10/07/2020 70860 Chronic Care MGMT 20 Mins Clinical Staff Time Per Calendar Month Completed Medical Devices Description No Information Available Encounters Type Date Location Provider Dx Diagnosis Office Visit 01/31/2021 7:47a Main Office Adria Montero MD I10 Essential (primary) hypertension E78.5 Hyperlipidemia, unspecified Office Visit 12/13/2020 1:22p Main Office Adria Montero MD I10 Essential (primary) hypertension E78.5 Hyperlipidemia, unspecified Office Visit 11/11/2020 1:06p Main Office Adria Montero MD I10 Essential (primary) hypertension E78.5 Hyperlipidemia, unspecified Office Visit 10/15/2020 1:30p Main Office JOZEF Ford R07 .9 Chest pain, unspecified I10 Essential (primary) hyperten merna E78.5 Hyperlipidemia, unspecified R55 Syncope and collapse I65.22 Occlusion and stenosis of le ft carotid artery R94.31 Abnormal electrocardiogram [ ECG] [EKG] Z71.3 Dietary counseling and surve illance Office Visit 10/07/2020 2:19p Main Office Adria Montero MD I10 Essential (primary) hypertension E78.5 Hyperlipidemia, unspecified Assessments Date Code Description Provider 01/31/2021 I10 Essential (primary) hypertension Adria Montero MD 01/31/2021 E78.5 Hyperlipidemia, unspecified Jonnie Montero MD 12/13/2020 I10 Essential (primary) hypertension Adria Montero MD 12/13/2020 E78.5 Hyperlipidemia, unspecified Jonnie Montero MD 11/11/2020 I10 Essential (primary) hypertension Adria Montero MD 11/11/2020 E78.5 Hyperlipidemia, unspecified Jonnie Montero MD 10/15/2020 R07.9 Chest pain, unspecified JOZEF Lan 10/15/2020 I10 Essential (primary) hypertension JOZEF Ford 10/15/2020 E78.5 Hyperlipidemia, unspecified JOZEF Marinelli 10/15/2020 R55 Syncope and collapse JOZEF Christensen 10/15/2020 I65.22 Occlusion and stenosis of left c arotid artery JOZEF Ford 10/15/2020 R94.31 Abnormal electrocardiogram [ECG] [EKG] JOZEF Ford 10/15/2020 Z71.3 Dietary counseling and surveilla nce JOZEF Ford 10/07/2020 I10 Essential (primary) hypertension Adria Montero MD 10/07/2020 E78.5 Hyperlipidemia, unspecified Jonnie Montero MD Plan of Treatment Future Appointment(s):* 10/16/2021 8:45 am - JOZEF Ford at Main Office 10/15/2020 - JOZEF Ford* R07.9 Chest pain, unspecified* Recommendations:* Patient agreeable to seek emergency medical attention with any worsening chest pain * I10 Essential (primary) hypertension* Recommendations:* Discontinue chlorthalidone due to low BP Continue lisinopril at the current dosage Advised patient to please monitor blood pressures at home and to alert our office for readings >140/>90 or <110/<60 * E78.5 Hyperlipidemia, unspecified* Recommendations:* Continue atorvastatin at the current dosage Please obtain fasting labs * R55 Syncope and collapse* Recommendations:* No further evaluation is needed at this time Advised patient to seek medical attention with the onset of any additional episodes of syncope * I65.22 Occlusion and stenosis of left carotid artery* Recommendations:* No further evaluation is needed at this time * R94.31 Abnormal electrocardiogram [ECG] [EKG]* Recommendations:* Please obtain labs Additional workup will be dependent any symptoms * Z71.3 Dietary counseling and surveillance* Recommendations:* Recommended for patient to follow a more whole food diet. Advised patient to avoid overly processed foods and packaged foods. Advised patient to avoid sodas, juices and other liquid calories. Recommended at least 30 minutes of exercise 3 days a week. * All * Follow up:* Follow up in 1 year Functional Status Functional Condition Comment Date Status Independent with all ADL's Activ e Mental Status Description No Information Available Referrals Description No Information Available
--- OUTSIDE RECORDS SUMMARY | 2021-04-19 11:00 | CCD | Continuity of Care Document ---
Author Author Nura MONTERO MD Organization Unknown Address [place] [address] Phone [phone] Care Team Providers Care Occupational Therapist'S Assistant Name Role Phone Roro Hill MD [facility] [phone] Problems Active Problems Provider Date Dietary management [...] Result H/L Range Note BMP 10/21/2020 [facility] [phone] Glucose, Fasting 111 mg/dL High 70-100 Blood [...] 9.2 mg/dL Normal 8.8-10.2 Lipid Panel 10/21/2020 [facility] nt [phone] Triglycerides Level 73 mg/dL Normal <150 Cholesterol Level 113 mg/dL Normal <200 HDL Cholesterol 39 mg/dL Low >40 LDL Cholesterol 59 mg/dL Normal <100 Non-HDL-C 74 mg/dL Normal Cholesterol Risk Ratio 2.897 Normal <5 Laboratory test finding 10/21/2020 [facility] [phone] Magnesium Level 2.5 mg/dL High 1.8-2.4 1 Units are mL/min/1.73 m2 Chronic Kidney Disease Staging per NKF: Stage I & II GFR >=60 Normal to Mildly Decreased Stage III GFR 30-59 Moderately Decreased Stage IV GFR 15-29 Severely Decreased Stage V GFR <15 Very Little GFR Left ESRD GFR <15 on [employer] Procedures Date Code Description Status 01/31/2021 97527 Chronic Care MGMT 20 Mins Clinical Staff Time Per Calendar Month Completed 01/31/2021 08893 Chronic Care Management Services Ea Addl 20 Min Completed 12/13/2020 72524 Chronic Care MGMT 20 Mins Clinical Staff Time Per Calendar Month Completed 11/11/2020 13253 Chronic Care MGMT 20 Mins Clinical Staff Time Per Calendar Month Completed 10/15/2020 93787 Office/Outpatient Established Mo d MDM 30-39 Min Completed 10/15/2020 65155 ECG 12-Lead Completed 10/07/2020 15265 Chronic Care MGMT 20 Mins Clinical Staff [...] 10/15/2020 Z71.3 Dietary counseling and surveilla nce JOEZF Ford 10/07/2020 I10 Essential (primary) hypertension Adria [...]
--- OUTSIDE RECORDS SUMMARY | 2021-04-19 11:01 | CCD | Continuity of Care Document ---
Author Author Nura QUEEN P.A. Organization Unknown Address [address] [place] [address] Phone [phone] Problems Description No Information Available Social History Type Date Description Comments Sex Unknown Tobacco Use Start: Unknown Never Smoked Cigarettes ETOH Use Denies alcohol use Tobacco Use Start: Unknown Patient has never smoked Allergies, Adverse Reactions, Alerts Description No Known Drug Allergies Medications Description No Active Medications Immunizations Description No Information Available Vital Signs Date Vital Result Comment 06/10/2016 10:15am BP Systolic 152 mmHg BP Diastolic 98 mmHg Heart Rate 87 /min Respiratory Rate 18 /min O2 % BldC Oximetry 98 % Body Temperature 98.2 F Weight 145.00 lb Height 66 inches 5'6" BMI (Body Mass Index) 23.4 kg/m2 Pain Level 10 Results Description No Information Available Procedures Description No Information Available Medical Devices Description No Information Available Encounters Description No Information Available Assessments Date Code Description Provider 01/27/2021 Z20.828 Contact with and (gramajo spected) exposure to other viral communicable diseases Wesley Nice Plan of Treatment No Information Available Functional Status Description No Information Available Mental Status Description No Information Available Referrals Description No Information Available
--- OUTSIDE RECORDS SUMMARY | 2021-04-19 11:01 | CCD | Continuity of Care Document ---
Author Author Nura QUEEN P.A. Organization Unknown Address [address] [place] [id number] Phone [phone] Problems Description No Information Available Social History [...] Available Encounters Description No Information Available Assessments Description No Information Available Plan of Treatment No Information Available Functional Status Description No Information Available Mental Status Description No Information Available Referrals Description No Information Available
--- OUTSIDE RECORDS SUMMARY | 2021-04-19 11:01 | CCD ---
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 Role Phone Manolo RICHARDS MD Unavailable Unavailable Manolo RICHARDS MD Unavailable Unavailable Manolo RICHARDS MD Unavailable Unavailable Manolo RICHARDS MD Unavailable Unavailable Manolo RICHARDS MD Unavailable Unavailable Manolo RICHARDS MD Unavailable Unavailable Manolo RICHARDS MD Unavailable Unavailable Manolo RICHARDS MD Unavailable Unavailable Manolo RICHARDS MD Unavailable Unavailable Manolo RICHARDS MD Unavailable Unavailable Manolo RICHARDS MD Unavailable Unavailable Manolo RICHARDS MD Unavailable Unavailable Manolo RICHARDS MD Unavailable Unavailable Manolo RICHARDS MD Unavailable Unavailable Manolo RICHARDS MD Unavailable Unavailable Manolo RICHARDS MD Unavailable Unavailable Manolo RICHARDS MD Unavailable Unavailable Manolo RICHARDS MD Unavailable Unavailable Manolo RICHARDS MD Unavailable Unavailable Manolo RICHARDS MD Unavailable Unavailable Manolo RICHARDS MD Unavailable Unavailable Manolo RICHARDS MD Unavailable Unavailable Manolo RICHARDS MD Unavailable Unavailable Manolo RICHARDS MD Unavailable Unavailable Manolo RICHARDS MD Unavailable Unavailable Manolo RICHARDS MD Unavailable Unavailable Manolo RICHARDS MD Unavailable Unavailable Manolo RICHARDS MD Unavailable Unavailable Manolo RICHARDS MD Unavailable Unavailable Manolo RICHARDS MD Unavailable Unavailable Manolo RICHARDS MD Unavailable Unavailable Manolo RICHARDS MD Unavailable Unavailable Manolo RICHARDS MD Unavailable Unavailable Manolo RICHARDS MD Unavailable Unavailable Manolo RICHARDS MD Unavailable Unavailable Manolo RICHARDS MD Unavailable Unavailable Manolo RICHARDS MD Unavailable Unavailable Manolo RICHARDS MD Unavailable Unavailable Manolo RICHARDS MD Unavailable Unavailable Manolo RICHARDS MD Unavailable Unavailable RICHARDSManolo Ferrari MD Unavailable Unavailable RICHARDS, E VIRY WHIPPLE Unavailable Unavailable RICHARDS, E VIRY WHIPPLE Unavailable Unavailable RICHARDS, E VIRY WHIPPLE Unavailable Unavailable RICHARDS, E VIRY WHIPPLE Unavailable Unavailable RICHARDS, E VIRY WHIPPLE Unavailable Unavailable RICHARDS, E VIRY WHIPPLE Unavailable Unavailable RICHARDS, E VIRY WHIPPLE Unavailable Unavailable RICHARDS, E VIRY WHIPPLE Unavailable Unavailable RICHARDS, E VIRY WHIPPLE Unavailable Unavailable RICHARDS, E VIRY WHIPPLE Unavailable Unavailable RICHARDS, E VIRY WHIPPLE Unavailable Unavailable RICHARDS, E VIRY WHIPPLE Unavailable Unavailable RICHARDS, E VIRY WHIPPLE Unavailable Unavailable KARUNA, L DEEDEE PA Unavailable Unavailable KARUNA, L DEEDEE PA Unavailable Unavailable KARUNA, L DEEDEE PA Unavailable Unavailable KARUNA, L DEEDEE PA Unavailable Unavailable KARUNA, L DEEDEE PA Unavailable Unavailable KARUNA, L DEEDEE PA Unavailable Unavailable KARUNA, L DEEDEE PA Unavailable Unavailable KARUNA, L DEEDEE PA Unavailable Unavailable KARUNA, L DEEDEE PA Unavailable Unavailable KARUNA, L DEEDEE PA Unavailable Unavailable KARUNA, L DEEDEE PA Unavailable Unavailable KARUNA, L DEEDEE PA Unavailable Unavailable KARUNA, L DEEDEE PA Unavailable Unavailable KARUNA, L DEEDEE PA Unavailable Unavailable KARUNA, L DEEDEE PA Unavailable Unavailable KARUNA, L DEEDEE PA Unavailable Unavailable Re-disclosure Warning The records that you are about to access may contain information from federally-assisted alcohol or drug abuse programs. If such information is present, then the following federally mandated warning applies: This information has been disclosed to you from records protected by federal confidentiality rules (42 CFR part 2). The federal rules prohibit you from making any further disclosure of this information unless further disclosure is expressly permitted by the written consent of the person to whom it pertains or as otherwise permitted by 42 CFR part 2. A general authorization for the release of medical or other information is NOT sufficient for this purpose. The Federal rules restrict any use of the information to criminally investigate or prosecute any alcohol or drug abuse patient.The records that you are about to access may contain highly sensitive health information, the redisclosure of which is protected by Article 27-F of the [facility] Public Health law. If you continue you may have access to information: Regarding HIV / AIDS; Provided by facilities licensed or operated by the [facility] Office of Mental Health; or Provided by the [facility] Office for People With Developmental Disabilities. If such information is present, then the following [facility] mandated warning applies: This information has been disclosed to you from confidential records which are protected by state law. State law prohibits you from making any further disclosure of this information without the specific written consent of the person to whom it pertains, or as otherwise permitted by law. Any unauthorized further disclosure in violation of state law may result in a fine or intermediate sentence or both. A general authorization for the release of medical or other information is NOT sufficient authorization for further disc losure. Family History Family Member Name Family Member Gender Family Member Status Date o f Status Description Data Source(s) Unknown Male Problem [facility] ([facility] Unknown Female Problem [facility] ([facility]) Encounters Encounter Providers Location Date Indications Data Source(s ) Office Visit Attender: VIRY RICHARDS MD Main Office 01/31/2021 07:47:0 0 AM EDT [facility] ([facility]) Office Visit Attender: VIRY RICHARDS MD Main Office 12/13/2020 01:22:0 0 PM EDT [facility] ([facility]) Office Visit Attender: VIRY RICHARDS MD Main Office 11/11/2020 01:06:0 0 PM EDT [facility] ([facility]) Outpatient Attender: DEEDEE HASKINS Main Office 10/15/2020 0 1:30:00 PM EDT [facility] ([facility]) Office Visit Attender: VIRY RICHARDS MD Main Office 10/07/2020 02:19:0 0 PM EDT [facility] ([facility]) Office Visit Attender: VIRY RICHARDS MD Main Office 09/02/2020 11:46:0 0 AM EDT [facility] ([facility]) Office Visit Attender: VIRY RICHARDS MD Main Office 07/31/2020 12:48:0 0 PM EDT [facility] ([facility]) Medications Medication Brand Name Start Date Product Form Dose Route Admi nistrative Instructions Pharmacy Instructions Status Indications Reaction Description Data Source(s) Esomeprazole 20 MG Delayed Release Oral Capsule Esomeprazole Magnesium 07/30/2020 12:00:00 AM EDT ORAL active [facility] ([facility]) Insurance Providers Payer name Policy type / Coverage type Policy ID Covered alliance party ID Covered alliance party's relationship to peck Policy Peck Plan Information Lifetime Benefit Solut Medigap Part B [id number] Family Dependent 2 [id number] Lifetime Benefit Solut Commercial [id number] Family Dependent 2 [id number] LIFETIME BENEFIT SOLUTIONS [id number] WI2 [id number] LIFETIME BENEFIT SOLUTIONS U [id number] Self [id number] [facility] Commercial [id number] Family Dependent [facility] WI2 [facility] [employer]ter[employer] [id number] Family Dependent Medicare (Part B) Medicare Primary [id number] Self 0 [id number] Medicare (Part B) Medicare Primary [id number] Self 0 [id number] Medicare (Part B) Medicare Primary [id number] Self 0 [id number] Medicare (Part B) Medicare Primary [id number] Self 0 [id number] Medicare (Part B) Medicare Primary [id number] Self 0 [id number] LIFETIME BENEFIT SOLUTIO O [id number] P [id number] Medicare (Part B) Medicare Primary [id number] Self 0 [id number] MEDICARE [id number] SP [id number] A MEDICARE C [id number] S [id number] A MEDICARE [id number] SP [id number] A LIFETIME BENEFIT SOLUTIONS [id number] WI2 [id number] [facility] OPTIONS [id number] SP [id number] Lifetime Benefit Solution Commercial [id number] Family Dependent MEDICARE [id number] SP [id number] MEDICARE [id number] SP [id number] [facility] WI2 [facility] [id number] S [id number] MEDICARE C [id number] S [id number] [id number] MEDICARE [id number] SP [id number] Problems, Conditions, and Diagnoses Code Display Name Description Problem Type Effective Dates Data Source(s) R07.9 Chest pain Chest pain Problem 10/15/2020 12:00:00 AM [facility] Surgeries/Procedures Procedure Description Date Indications Data Source(s) Chronic Care Management Services Ea Addl 20 Min 2020 12:00:00 AM EDT [facility] Chronic Care MGMT 20 Mins Clinical Staff Time Per Calendar M [facility] 01/31/2021 12:00:00 AM EDT [facility] ([facility]) Chronic Care MGMT 20 Mins Clinical Staff Time Per Calendar M [facility] 12/13/2020 12:00:00 AM EDT [facility] ([facility]) Chronic Care MGMT 20 Mins Clinical Staff Time Per Calendar M [facility] 11/11/2020 12:00:00 AM EDT [facility] ([facility]) ECG ROUTINE ECG W/LEAST 12 LDS W/I&R 10/15/2020 12:00: 00 AM EDT [facility] ([facility]) OFFICE OUTPATIENT VISIT 25 MINUTES 10/15/2020 12:00:00 AM EDT [facility] ([facility]) Chronic Care MGMT 20 Mins Clinical Staff Time Per Calendar M [facility] 10/07/2020 12:00:00 AM EDT [facility] ([facility]) Chronic Care Management Services Ea Addl 20 Min 2020 12:00:00 AM EDT [facility] ([facility]) Chronic Care MGMT 20 Mins Clinical Staff Time Per Calendar M [facility] 09/02/2020 12:00:00 AM EDT [facility] ([facility]) Chronic Care Management Services Ea Addl 20 Min 2020 12:00:00 AM EDT [facility] ([facility]) Chronic Care MGMT 20 Mins Clinical Staff Time Per Calendar [facility] 07/31/2020 12:00:00 AM EDT [facility] ([facility]) Results ID Date Data Source [id number] 01/27/2021 12:00:00 AM EDT [facility] Name Value Range Interpretation Code Description Data Alla rce(s) Supporting Document(s) SARS-CoV2 Rapid Antigen Positive [facility] This lab was reported by Ildefonso Mann Serafin. ID Date Data Source [id number] 10/21/2020 08:43:00 AM EDT [facility] ([facility]) Name Value Range Interpretation Code Description Data Alla rce(s) Supporting Document(s) Magnesium [Mass/volume] in Serum or Plasma 2.5 mg/dL 1.8-2.4 [facility] ([facility]) ID Date Data Source [id number] 10/21/2020 08:43:00 AM EDT [facility] ([facility]) Name Value Range Interpretation Code Description Data Alla rce(s) Supporting Document(s) Triglycerides Level 73 mg/dL [facility] ([facility]) Cholesterol Level 113 mg/dL [facility] ([facility]) Non-HDL-C 74 mg/dL [facility] ([facility] LDL Cholesterol 59 mg/dL [facility] ([facility]) HDL Cholesterol 39 mg/dL [facility] ([facility]) Cholesterol Risk Ratio 2.897 [facility] ([facility]) ID Date Data Source [id number] 10/21/2020 08:43:00 AM EDT [facility] ([facility]) Name Value Range Interpretation Code Description Data Alla rce(s) Supporting Document(s) Glucose, Fasting 111 mg/dL 70-100 [facility] ([facility]) Blood Urea Nitrogen 18 mg/dL 7-18 [facility] ([facility]) Glomerular Filtration Rate Laboratory test result [facility] ([facility]) <content>Units are mL/min/1.73 m2</content>
<content></content>
<content>Chronic Kidney Disease Staging per NKF:</content>
<content></content>
<content>Stage I & II GFR >=60 Normal to Mildly Decreased</content>
<content>Stage III GFR 30- 59 Moderately Decreased</content>
<content>Stage IV GFR 15-29 Severely Decreased</content>
<content>Stage V GFR <15 Very Little GFR Left</content>
<content>ESRD GFR <15 on PAROLE OFFICER</content>
<content></content> Sodium Level 143 meq/L 136-145 [facility] ([facility]) Creatinine For GFR 1.10 mg/dL 0.70-1.30 [facility] ([facility]) Potassium Serum 5.1 meq/L 3.5-5.1 [facility] ([facility]) Carbon Dioxide Level 28 meq/L 21-32 [facility] ([facility]) Chloride Level 108 meq/L 98-107 [facility] ([facility]) Calcium Level 9.2 mg/dL 8.8-10.2 [facility] ([facility]) Anion Gap 7 meq/L 8-16 [facility] Procedure Social History Code Duration Value Status Description Data Source(s ) Smoking 10/15/2020 12:00:00 AM EDT Patient has never smoked co mpleted Patient has never smoked [facility] ([facility]) Vital Signs ID Date Data Source UNK Name Value Range Interpretation Code Description Data Source(s) Body weight 145.00 [lb_av] 145.00 [lb_av] MED[facility] T ([facility]) Body height 66 [in_i] 66 [in_i] [facility] ([facility]) 5'6" Body mass index (BMI) [Ratio] 23.4 kg/m2 23.4 k g/m2 [facility] ([facility]) Heart rate 81 /min 81 /min [facility] ([facility]) Systolic blood pressure--sitting 102 mm[Hg] 102 mm[Hg] [facility] ([facility]) [place], medium cuff | 106/68 repeat Diastolic blood pressure--sitting 64 mm[Hg] 64 mm[Hg] [facility] ([facility]) [place], medium cuff | 106/68 repeat
[2021-04-19] MEDS ORDERED: vitamin d3 (11:05)
[2021-04-19] MEDS ORDERED: ZINC1TAB2 PO (11:05)
--- OUTSIDE RECORDS SUMMARY | 2021-04-19 11:44 | CCD ---
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 If you continue you may have access to information: Regarding HIV / AIDS; Provided by facilities licensed or operated by the [facility] Office of Mental Health; or Provided by the [facility] Office for People With Developmental Disabilities. If such information is present, then the following [facility] mandated warning applies: This information has been [...] law may result in a fine or detention sentence or both. A general authorization for the release of medical or other information is NOT sufficient authorization for further disc losure. Family History Family Member Name Family Member Gender Family Member Status Date o f Status Description Data Source(s) Unknown Male Problem [facility] ([facility]) Unknown Female Problem [facility] ([facility]) Encounters Encounter Providers Location Date Indications Data Source(s ) Office Visit Attender: VIRY RICHARDS MD Main Office 01/31/2021 07:47:0 0 AM EDT [facility] ([facility]) Office Visit Attender: VIRY RICHARDS MD Main Office 12/13/2020 01:22:0 0 PM EDT [facility] ([facility]) Office Visit Attender: VIRY RICHARDS MD Main Office 11/11/2020 01:06:0 0 PM EDT [facility] ([facility]) Outpatient Attender: DEEDEE HASKINS Main Office 10/15/2020 0 1:30:00 PM EDT [facility] ([facility]) Office Visit Attender: VIRY RICHARDS MD Main Office 10/07/2020 02:19:0 0 PM EDT [facility] ([facility]) Office Visit Attender: VIRY RICHARDS MD Main Office 09/02/2020 11:46:0 0 AM EDT [facility] ([facility]) Office Visit Attender: VIRY RICHARDS MD Main Office 07/31/2020 12:48:0 0 PM EDT [facility] ([facility]) Medications Medication Brand Name Start Date Product Form Dose Route Admi nistrative Instructions Pharmacy Instructions Status Indications Reaction Description Data Source(s) Esomeprazole 20 MG Delayed Release Oral Capsule Esomeprazole Magnesium 07/30/2020 12:00:00 AM EDT ORAL active [facility] ([facility]) Insurance Providers Payer name Policy type / Coverage type Policy ID Covered green party ID Covered green party's relationship to peck Policy Peck Plan Information Lifetime Benefit Solut Medigap Part B [id number] Family Dependent 2 [id number] Lifetime Benefit Solut Commercial [id number] Family Dependent 2 [id number] LIFETIME BENEFIT SOLUTIONS [id number] WI2 [id number] LIFETIME BENEFIT SOLUTIONS U [id number] Self [id number] [facility] Commercial [id number] Family Dependent [facility]ALTH SYSTEM WI2 [facility] Medical Envelope [id number] Family Dependent Medicare (Part B) Medicare Primary [id number] Self 0 [id number] Medicare (Part B) Medicare Primary [id number] Self 0 [id number] Medicare (Part B) Medicare Primary [id number] Self 0 [id number] Medicare (Part B) Medicare Primary [id number] Self 0 [id number] Medicare (Part B) Medicare Primary [id number] Self 0 [id number] LIFETIME BENEFIT SOLUTIO O [id number] P [id number] Medicare (Part B) Medicare Primary [id number] Self 0 [id number] MEDICARE [id number] SP [id number] A MEDICARE C [id number] S [id number] A MEDICARE [id number] SP [id number] A LIFETIME BENEFIT SOLUTIONS [id number] WI2 [id number] [facility] OPTIONS [id number] SP [id number] Lifetime Benefit Solution Commercial [id number] Family Dependent MEDICARE [id number] SP [id number] MEDICARE [id number] SP [id number] HEALTH SYSTEM WI2 [facility] [id number] S [id number] MEDICARE C [id number] S [id number] [id number] MEDICARE [id number] SP [id number] Problems, Conditions, and Diagnoses Code Display Name Description Problem Type Effective Dates Data Source(s) R07.9 Chest pain Chest pain Problem 10/15/2020 12:00:00 AM ED [facility] Surgeries/Procedures Procedure Description Date Indications Data Source(s) Chronic Care Management Services Ea Addl 20 Min 2020 12:00:00 AM EDT [facility] Chronic Care MGMT 20 Mins Clinical Staff Time Per Calendar M [facility] 01/31/2021 12:00:00 AM EDT [facility] ([facility]) Chronic Care MGMT 20 Mins Clinical Staff Time Per Calendar M [facility] 12/13/2020 12:00:00 AM EDT [facility] ([facility]) Chronic Care MGMT 20 Mins Clinical Staff Time Per Calendar M [facility] 11/11/2020 12:00:00 AM EDT [facility] ([facility]) ECG ROUTINE ECG W/LEAST 12 LDS W/I&R 10/15/2020 12:00: 00 AM EDT [facility] ([facility]) OFFICE OUTPATIENT VISIT 25 MINUTES 10/15/2020 12:00:00 AM EDT [facility] ([facility]) Chronic Care MGMT 20 Mins Clinical Staff Time Per Calendar M [facility] 10/07/2020 12:00:00 AM EDT [facility] ([facility]) Chronic Care Management Services Ea Addl 20 Min 2020 12:00:00 AM EDT [facility] ([facility]) Chronic Care MGMT 20 Mins Clinical Staff Time Per Calendar M [facility] 09/02/2020 12:00:00 AM EDT [facility] ([facility]) Chronic Care Management Services Ea Addl 20 Min 2020 12:00:00 AM EDT [facility] ([facility]) Chronic Care MGMT 20 Mins Clinical Staff Time Per Calendar M [facility] 07/31/2020 12:00:00 AM EDT [facility] ([facility]) Results ID Date Data Source [id number] 01/27/2021 12:00:00 AM EDT [facility] Name Value Range Interpretation Code Description Data Alla rce(s) Supporting Document(s) SARS-CoV2 Rapid Antigen Positive [facility] This lab was reported by Ildefonso Mann Serafin. ID Date Data Source [id number] 10/21/2020 08:43:00 AM EDT [facility] ([facility]) Name Value Range Interpretation Code Description Data Alla rce(s) Supporting Document(s) Magnesium [Mass/volume] in Serum or Plasma 2.5 mg/dL 1.8-2.4 [facility] ([facility]) ID Date Data Source [id number] 10/21/2020 08:43:00 AM EDT [facility] ([facility]) Name Value Range Interpretation Code Description Data Alla rce(s) Supporting Document(s) Triglycerides Level 73 mg/dL [facility] ([facility]) Cholesterol Level 113 mg/dL [facility] ([facility]) Non-HDL-C 74 mg/dL [facility] ([facility] LDL Cholesterol 59 mg/dL [facility] ([facility]) HDL Cholesterol 39 mg/dL [facility] ([facility]) Cholesterol Risk Ratio 2.897 [facility] ([facility]) ID Date Data Source [id number] 10/21/2020 08:43:00 AM EDT [facility] ([facility]) Name Value Range Interpretation Code Description Data Alla rce(s) Supporting Document(s) Glucose, Fasting 111 mg/dL 70-100 [facility] ([facility]) Blood Urea Nitrogen 18 mg/dL 7-18 [facility] ([facility]) Glomerular Filtration Rate Laboratory test result [facility] ([facility]) <content>Units are mL/min/1.73 m2</content>
<content></content>
<content>Chronic Kidney Disease Staging per NKF:</content>
<content></content>
<content>Stage I & II GFR >=60 Normal to Mildly Decreased</content>
<content>Stage III GFR 30- 59 Moderately Decreased</content>
<content>Stage IV GFR 15-29 Severely Decreased</content>
<content>Stage V GFR <15 Very Little GFR Left</content>
<content>ESRD GFR <15 on CONSERVATION OFFICER</content>
<content></content> Sodium Level 143 meq/L 136-145 [facility] ([facility]) Creatinine For GFR 1.10 mg/dL 0.70-1.30 [facility] ([facility]) Potassium Serum 5.1 meq/L 3.5-5.1 [facility] ([facility]) Carbon Dioxide Level 28 meq/L 21-32 [facility] ([facility]) Chloride Level 108 meq/L 98-107 [facility] ([facility]) Calcium Level 9.2 mg/dL 8.8-10.2 [facility] ([facility]) Anion Gap 7 meq/L 8-16 [facility] Procedure Social History Code Duration Value Status Description Data Source(s ) Smoking 10/15/2020 12:00:00 AM EDT Patient has never smoked co mpleted Patient has never smoked [facility] ([facility]) Vital Signs ID Date Data Source UNK Name Value Range Interpretation Code Description Data Source(s) Body weight 145.00 [lb_av] 145.00 [lb_av] MED[facility] T ([facility]) Body height 66 [in_i] 66 [in_i] [facility] ([facility]) 5'6" Body mass index (BMI) [Ratio] 23.4 kg/m2 23.4 k g/m2 [facility] ([facility]) Heart rate 81 /min 81 /min [facility] ([facility]) Systolic blood pressure--sitting 102 mm[Hg] 102 mm[Hg] [facility] ([facility]) LA, medium cuff | 106/68 repeat Diastolic blood pressure--sitting 64 mm[Hg] 64 mm[Hg] [facility] ([facility]) LA, medium cuff | 106/68 repeat
--- NOTE | 2021-04-19 11:47 | REP ---
INDICATION: Altered Mental Status. COMPARISON: Comparison is made with CT study of the brain from 03 June 2017 and MRI study from that same date. TECHNIQUE: Helical scanning is acquired. 5 mm axial images were reformatted. Coronal MPR images were generated. FINDINGS: Digital preliminary heater tender radiograph is unremarkable. Bone window settings demonstrate intact bony calvarium. The visualized paranasal sinuses are clear. No intraorbital abnormality is seen. There is minimal vascular calcification in the distal internal carotid arteries bilaterally. On soft tissue window settings, there is a new low-density mass in the inferior cerebellar hemisphere to the left of midline measuring 2.6 cm in diameter characterized by mainly low-density. The lesion contains a punctate area of increased attenuation which is most likely calcification but conceivably could be a small area of punctate hemorrhage. The lesion is new when compared with 2018 prior study and most consistent with a primary or secondary malignancy. There is also an area of low-density in the subcortical white matter of the left frontal lobe. This is unchanged from the comparison CT and MR study and may be an old area of ischemia. There is no mass effect here. There is no evidence of extra-axial fluid collection or midline shift. Mild generalized volume loss is again noted. IMPRESSION: New, predominantly low-density mass in the left inferior cerebellar hemisphere most consistent with secondary, or primary malignancy. This lesion contains a punctate area of increased density which could be petechial hemorrhage versus calcification. There is a small area of old ischemia in the subcortical white matter of the left frontal lobe. Generalized volume loss and vascular calcification are seen. Consider further evaluation with MRI scanning. Preferably without and with intravenous gadolinium. Critical Findings: The critical information above was relayed directly by me by telephone to Teresa Giang on 04/19/2021 at 11:42 am with readback verification. <Electronically signed by Artie Chaney > 04/19/21 [id number]
[2021-04-19 11:57] LABS: BASO # 0.1 10^3/uL (0.0-0.2); BASO % 0.4 % (0.0-1.0); EOS % 0.4 % (0.0-3.0); HEMATOCRIT 41.3 % (42.0-52.0); HEMOGLOBIN 13.3 g/dl (13.5-17.5); LYMPH # 1.4 10^3/uL (1.5-5.0); LYMPH % 12.7 % (24.0-44.0); MEAN CORPUSCULAR HEMOGLOBIN 28.7 pg (27.0-33.0); MEAN CORPUSCULAR HGB CONC 32.2 g/dl (32.0-36.5); MEAN CORPUSCULAR VOLUME 89.2 fl (80.0-96.0); MONO % 8.6 % (2.0-8.0); NEUTROPHILS # 8.8 10^3/uL (1.5-8.5); NEUTROPHILS % 77.6 % (36.0-66.0); PLATELET COUNT, AUTOMATED 267 10^3/uL (150-450); RED BLOOD COUNT 4.63 10^6/uL (4.30-6.10); WHITE BLOOD COUNT 11.4 10^3/uL (4.0-10.0)
[2021-04-19 12:22] LABS: ALBUMIN 3.3 GM/DL (3.2-5.2); ALT/SGPT 25 U/L (12-78); BILIRUBIN,DIRECT 0.2 MG/DL (0.0-0.2); BILIRUBIN,TOTAL 0.7 MG/DL (0.2-1.0); BLOOD UREA NITROGEN 17 MG/DL (7-18); CALCIUM LEVEL 9.3 MG/DL (8.8-10.2); CARBON DIOXIDE LEVEL 30 MEQ/L (21-32); CHLORIDE LEVEL 105 MEQ/L (98-107); CREATININE FOR GFR 0.84 MG/DL (0.70-1.30); GLOMERULAR FILTRATION RATE > 60.0 (>42); GLUCOSE, FASTING 152 MG/DL (70-100); POTASSIUM SERUM 4.6 MEQ/L (3.5-5.1); SODIUM LEVEL 140 MEQ/L (136-145); THYROID STIMULATING HORMONE 0.673 uIU/ML (0.358-3.740); TOTAL PROTEIN 7.1 GM/DL (6.4-8.2)
[2021-04-19 13:13] LABS: RSV AMPLIFICATION NEGATIVE (NEGATIVE)
[2021-04-19 16:21] VITALS: BP 121/76
--- NOTE | 2021-04-19 16:37 | ECGEPIP ---
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
== END 2021-04-19 16:24 | disposition short-term general hospital (02) ==
LOC: M ED 10:53
DX: G93.89 Other specified disorders of brain (principal); E11.9 Type 2 diabetes mellitus without complications; I10 Essential (primary) hypertension; E78.5 Hyperlipidemia, unspecified; I25.10 Atherosclerotic heart disease of native coronary artery without angina pectoris; Z85.118 Personal history of other malignant neoplasm of bronchus and lung; Z79.899 Other long term (current) drug therapy; Z79.82 Long term (current) use of aspirin; Z88.8 Allergy status to other drugs, medicaments and biological substances

== ENCOUNTER → 2021-04-25 | Outpatient (CLI) | payer MEDICARE ==
[~2021-04-25] MED LIST changes: +DECA4TAB PO; +GLIP5TAB20 PO; +PANT40TA29 PO; +ZINC1TAB2 PO; +vitamin d3
--- NOTE | 2021-04-25 16:55 | RADONC.CN ---
Radiation Oncology Hx/Consult Radiation Oncology Consult Date of Service: Apr 25, 2021 Pt Identifier Nura Fink is a 70 year old male with a history of stage IV right colon cancer and recently diagnosed brain metastases (2), 0.5 cm left posterior parietal, and 2.4 cm left cerebellar. He is seen today for consideration of fSRS. Diagnosis/Treatment History Oncologic History Diagnosed with right-sided colon cancer in 2017 s/p right hemicolectomy ([facility]) on 05/03/17 showing adenocarcinoma [id number] KRAS+ stage IIIB with positive margin. He completed 6 cycles of adjuvant FOLFOX which was discontinued due to neuropathy. In 2017 he developed pulmonary and liver metastases and underwent FOLFIRI which he received 5 cycles of last in 12/2018. Avastin was continued through 06/2019. He had rising CEA to 227 on 05/29/19 and he started xeloda and avastin which resulted in mucositis and discontinuation in 07/2019. He then remained off therapy and lost to oncologic followup until 04/19/21 when he presented with worsening imbalance and blurry vision. CT head on 04/19/21 showed edema in the left cerebellum associated with a metastatic looking lesion. He was transferred to [facility] for a neurosurgical evaluation. MRI on 04/21/21 revealed 2 metastatic lesions 2.4 x 2.2 cm in the left cerebellum and 0.5 cm in the left posterior parietal cortex. He was given decadron and improved. He was discharged on 4 mg TID. Recent data: 04/22/21 CT abdomen pelvis IMPRESSION: 1. Exophytic mass arising from the anterior wall of the rectosigmoid region consistent with neoplasm. This is in contact with the prostate. Extensive hepatic metastasis. At least 1 necrotic metastatic periportal region lymph node. 2. Contracted gallbladder with what appears to be diffuse wall thickening and at least a few gallstones. Question porcelain gallbladder. 04/22/21 CT chest IMPRESSION: Pulmonary metastasis. Prominent mediastinal lymph nodes suspicious at least at the level of the right hilum and subcarinal region.Fleischner chest imaging society guidelines do not apply to this patient who has a known malignancy. 04/21/21 MRI brain IMPRESSION: 2.4 x 2.3 x 2.7 cm peripherally enhancing necrotic lesion in the left cerebellum and another similar 0.5 x 0.5 x 0.5 cm lesion in the posterior left parietal lobe, most consistent with metastatic lesions. Interval History Here with his supportive daughter. He has improved balance and no further visual disturbance on decadron. He has no LEACH, he is back to eating a full diet without nausea. He has no pain complaints today. He is using a walker to ambulate. Past Medical History: DM2 Past Surgical History: Right hemicolectomy 2017 Family History: No family cancer history Social History: Never smoker Never drinker Former user of chewing tobacco Allergies / Meds Allergies: Coded Allergies: metformin (Verified Adverse Reaction, Unknown, Dizziness, 08/10/18) Home Meds Reported Medications Pantoprazole Sodium (Pantoprazole Sodium) 40 Mg Tablet.dr, 40 MG PO DAILY for 30 Days, #30 TAB 04/25/21 Dexamethasone (Decadron) 4 Mg Tablet, 1 TAB PO ONCE for 1 Day, #1 TAB 04/25/21 Glipizide (Glipizide ER) 5 Mg Tab.er.24, 5 MG PO DAILY for 30 Days, #30 TAB 04/25/21 [vitamin d3] No Conflict Check, DAILY 04/19/21 Zinc (Zinc) 50 Mg Tablet, 1 TAB PO DAILY for 30 Days, #30 TAB 04/19/21 Lisinopril (Lisinopril) 10 Mg Tab, 10 MG PO DAILY 04/20/18 Atorvastatin Calcium (Atorvastatin Calcium) 40 Mg Tab, 40 MG PO DAILY, TAB 02/03/17 Aspirin (Aspirin EC) 81 Mg Tab, 81 MG PO DAILY, TAB 02/03/17 Discontinued Reported Medications Chlorthalidone (Chlorthalidone) 25 Mg Tablet, 12.5 MG PO DAILY 08/03/19 Discontinued Scripts Famotidine (Famotidine) 20 Mg Tablet, 20 MG PO BID for 30 Days, #60 TAB Prov:GERMAN CELESTE MD 08/15/19 Magic Mouthwash (First-Mouthwash Blm) 1 Ea Susp, 1 EA SS Q4HP PRN for DISCOMFORT for 14 Days, #10 SUSP Prov:GERMAN CELESTE MD 08/15/19 Capecitabine (Xeloda) 500 Mg Tablet, 500 MG PO BID for colon cancer MDD 4500 mg for 14 Days, #60 TAB 5 Refills Take 4 tablets = 2000 mg po qam and 5 tablets = 2500 mg po q pm for 14 days, then 7 days off Prov:DARON PICKARD MD 07/10/19 Review of Systems Constitutional: Reports: Fatigue, Weight Loss, Normal appetite; Denies: Fever Eyes: Reports: Vision change; Denies: Pain HEENT: Denies: Head Aches Pulmonary: Denies: Dyspnea Cardiovascular: Denies: Chest Pain Gastrointestinal: Denies: Nausea, Vomiting, Abdominal Pain, Melena, Hematochezia Hematologic: Denies: Bruising, Bleeding Excessively Musculoskeletal: Denies: Neck pain, Back pain Neurological: Reports: Incoordination; Denies: Weakness, Numbness Psych: Reports: Mood Normal Vital Signs Ht 65" Wt 137 lbs BMI 22.8 T 98.7 P 73 RR 18 BP 121/71 O2 97% Pain 0 Fatigue 0 General Exam: Alert, Cooperative, No Acute Distress Eye Exam: PERRLA, EOMI Neck Exam: Supple Chest Exam: Clear to auscultation Heart Exam: Rate Normal Extremity Exam: Negative: Edema Neuro Exam: Normal Gait, Normal Speech, Strength at 5/5 X4 ext, Normal Tone, Cranial Nerves 3-12 NL Psych Exam: Mental status NL, Oriented x 3 Diagnostic and Laboratory Diagnostic Review Radiologic images, relevant labs and pathology reports were personally reviewed and discussed with Mr. Fink. Assessment and Plan Impression Mr. Fink is a 70 year old male with a history of stage IV right colon cancer and recently diagnosed brain metastases (2), 0.5 cm left posterior parietal, and 2.4 cm left cerebellar. He is seen today for consideration of fSRS. Stage Right colon adenocarcinoma [id number] stage IVB Performance Status ECOG 2 Plan We had an extensive discussion with Mr. Fink regarding the diagnosis at hand and available therapeutic options. His condition has improved with decadron, much less imbalance and no further visual problems. He is on 4 mg TID which is a high dose, I asked him to continue this over the weekend and we can reduce to 4 mg BID next week at the time of planning. His body scans show progression, undoubtedly he will need to re-establish with medical oncology and initiate systemic therapy as there are additional chemo and non-chemotherapy lines that would be available to him. This can occur upon completion of brain treatment. He has 2 lesions which are amenable to fSRS, given the left cerebellar lesions moderate size and proximity to the brainstem, I recommend 30 Gy in 5 fractions which should respect the brainstem-lesion interface better than higher [id number] schedules. The two lesions will be treated simultaneously using non-coplanar VMAT arcs. We discussed the logistics of receiving radiation therapy in detail including the need for a 1-time planning session. This will occur on 04/28/21 so as not to allow the excellent quality 04/21/21 MRI to lapse. We reviewed the side effects of treatment including fatigue, edema and radiation necrosis. After discussing the risks, benefits and alternatives to radiation therapy, Mr. Fink was amenable to pursuing radiotherapy. All questions were answered to the patient's satisfaction. We instructed the patient that if there were any questions,concerns or changes in clinical status in the interim to contact us. Recommendations fSRS 30 Gy in 5 fraction with VMAT-based planning Simulation on 04/28/21 Treatment to follow within 2-3 days Billing Statement Total time of [55] minutes was spent preparing for the visit [4], obtaining HPI [10], examining the patient [4], reviewing diagnostic tests [8], discussing management options [15], coordinating care [4], and writing this note [10]. LOTTIE KNUTSON MD Apr 25, 2021 16:55
== END ==
LOC: M ONCR 14:44
PROVIDERS: ATTEND General Practice
DX: C18.9 Malignant neoplasm of colon, unspecified (principal); C79.31 Secondary malignant neoplasm of brain; Z92.3 Personal history of irradiation; Z79.899 Other long term (current) drug therapy

== ENCOUNTER 2021-05-07 14:34 | Outpatient (RCR) | payer MEDICARE ==
[~2021-05-07 14:34] MED LIST changes: +DEXA2TA PO; +TRAZ-257 PO
== END 2021-05-16 ==
LOC: M ONCR 14:34
PROVIDERS: ATTEND General Practice
DX: C79.31 Secondary malignant neoplasm of brain (principal); C18.8 Malignant neoplasm of overlapping sites of colon

== ENCOUNTER → 2021-05-12 | Outpatient (CLI) | payer MEDICARE ==
[~2021-05-12] MED LIST changes: +CALC500T38 PO; +D31000TA2 PO; +DEXA1TA PO; +LOPE1CAP5 PO; +NYST50SS SS
== END ==
LOC: M PLARAD 12:59
PROVIDERS: ATTEND Internal Medicine Hematology & Oncology
DX: C18.9 Malignant neoplasm of colon, unspecified (principal); R91.1 Solitary pulmonary nodule
CPT/HCPCS: 78815; A9552

== ENCOUNTER 2021-06-26 12:30 | Inpatient (IN) | payer MEDICARE ==
[~2021-06-26] VITALS: Ht 167.6 cm; Wt 55.2 kg
[2021-06-26] MEDS: SODIUM CHLORIDE 0.9% INJ 10 ML SYR IV SCH ×2 (09:00→17:13)
[~2021-06-26 12:30] MED LIST changes: -CALC500T38 PO; -D31000TA2 PO
[2021-06-26] MEDS ORDERED: NS 1,000 ML IV ONE ×2 (13:25→23:40)
[2021-06-26 14:10] LABS: HEMATOCRIT 30.9 % (42.0-52.0); LYMPH # 0.2 10^3/uL (1.5-5.0); LYMPH % 68.2 % (24.0-44.0); MEAN CORPUSCULAR HGB CONC 32.4 g/dl (32.0-36.5); MEAN CORPUSCULAR VOLUME 86.6 fl (80.0-96.0); MONO # 0.1 10^3/uL (0.0-0.8); MONO % 22.7 % (2.0-8.0); RED BLOOD COUNT 3.57 10^6/uL (4.30-6.10)
[2021-06-26 14:40] LABS: PLATELET COUNT, AUTOMATED 74 10^3/uL (150-450); WHITE BLOOD COUNT 0.2 10^3/uL (4.0-10.0)
[2021-06-26 14:43] LABS: ALBUMIN 1.8 GM/DL (3.2-5.2); BILIRUBIN,DIRECT 0.4 MG/DL (0.0-0.2); BILIRUBIN,TOTAL 0.7 MG/DL (0.2-1.0); CALCIUM LEVEL 8.2 MG/DL (8.8-10.2); CREATININE FOR GFR 1.68 MG/DL (0.70-1.30); POTASSIUM SERUM 3.8 MEQ/L (3.5-5.1); THYROID STIMULATING HORMONE 0.553 uIU/ML (0.358-3.740); TOTAL PROTEIN 4.9 GM/DL (6.4-8.2)
[2021-06-26] MEDS ORDERED: NS IV ONE (14:45)
[2021-06-26] MEDS ORDERED: cefTRIAXone SOD 2 GM in D5W MINI-BAG PLUS 50 ML IV ONE (14:45)
[2021-06-26] MEDS ORDERED: HumuLIN R (REGULAR) INSULIN (NovoLIN R) **100U/ML** PER UNIT IV ONE (14:50)
[2021-06-26] MEDS ORDERED: D31000TA2 PO (16:24)
[2021-06-26] MEDS ORDERED: CALC500T38 PO (16:24)
[2021-06-26] MEDS ORDERED: TRAZ-257 PO (16:24)
[2021-06-26] MEDS ORDERED: HOME MED LIST COMPLETE! XX SCH (16:25)
[2021-06-26 16:32] LABS: RSV AMPLIFICATION NEGATIVE (NEGATIVE)
[2021-06-26] MEDS ORDERED: NS 1,000 ML IV SCH (17:35)
[2021-06-26] MEDS: HumaLOG INSULIN (NovoLOG) PER UNIT SC SCH (18:00)
[2021-06-26] MEDS ORDERED: GLUCOSE 4GM CHEW TABLET PO PRN (19:10)
[2021-06-26] MEDS ORDERED: DEXTROSE 50% 50 ML SYRINGE IV PRN (19:10)
[2021-06-26] MEDS ORDERED: GLUCAGON INJ 1MG VIAL SC PRN (19:10)
[2021-06-26 20:01] LABS: INR 1.36; PARTIAL THROMBOPLASTIN TIME 31.7 SECONDS (25.9-37.0); PROTHROMBIN TIME 17.2 SECONDS (12.7-14.5)
[2021-06-26] MEDS ORDERED: HEPARIN SOD (PORCINE) 5000UNITS/ML 1ML VIAL/SYRINGE SQ SCH (21:00)
[2021-06-26] MEDS: PIPERACILLIN/TAZOBACTAM SOD 3.375 GM in D5W MINI-BAG PLUS 50 ML IV SCH (22:55)
[2021-06-26 23:00] VITALS: BP 90/50
[2021-06-26 23:10] VITALS: BP 78/55
[2021-06-26 23:30] VITALS: BP 80/50
[2021-06-26] MEDS ORDERED: FILGRASTIM 300 MCG/0.5 ML SYRINGE **SC ADMINISTRATION ONLY SC SCH (23:30)
[2021-06-27] VITALS (59 sets, daily range): BP systolic 78–139; BP diastolic 50–96
[2021-06-27] MEDS ORDERED: VANCOMYCIN HCL 1,000 MG, VIAL MATE ADAPTER 1 EACH in NS 250 ML IV ONE ×3
[2021-06-27 00:09] LABS: HEMATOCRIT 28.4 % (42.0-52.0); HEMOGLOBIN 8.9 g/dl (13.5-17.5); MEAN CORPUSCULAR HGB CONC 31.3 g/dl (32.0-36.5); MEAN CORPUSCULAR VOLUME 89.3 fl (80.0-96.0); RED BLOOD COUNT 3.18 10^6/uL (4.30-6.10)
[2021-06-27 00:14] LABS: PLATELET COUNT, AUTOMATED 66 10^3/uL (150-450); WHITE BLOOD COUNT 0.2 10^3/uL (4.0-10.0)
[2021-06-27 00:17] LABS: ABG BASE EXCESS -5.5 (-2.0-2.0); ABG HCO3 17.1 MEQ/L (22.0-26.0); ABG PARTIAL PRESSURE CO2 23.9 mmHg (35.0-45.0); ABG PARTIAL PRESSURE O2 79.3 mmHg (75.0-100.0); ABG STANDARD HCO3 19.8 MEQ/L (22.0-26.0); ABG TOTAL CO2 17.8 MEQ/L (23.0-31.0); ABG pH (ARTERIAL) 7.472 UNITS (7.350-7.450)
[2021-06-27 00:34] LABS: ACETONE/KETONE 0.55 MG/DL (<2.81); CALCIUM LEVEL 7.7 MG/DL (8.8-10.2); CREATININE FOR GFR 1.62 MG/DL (0.70-1.30); GLOMERULAR FILTRATION RATE 44.8 (>42); POTASSIUM SERUM 3.4 MEQ/L (3.5-5.1)
[2021-06-27] MEDS ORDERED: LACTATED RINGER'S 1000 ML IV ONE (00:40)
[2021-06-27] MEDS ORDERED: LR 1,000 ML IV SCH (00:40)
[2021-06-27] MEDS ORDERED: ACETAMINOPHEN *IV* 650 MG in IV 1 EA IV ONE (01:00)
[2021-06-27] MEDS ORDERED: NS 0.45% 1,000 ML IV SCH (01:45)
[2021-06-27] MEDS: FLUCONAZOLE 100 MG in IV 1 EA IV SCH (01:53)
[2021-06-27] MEDS ORDERED: HYDROCORTISONE 100 MG/2 ML VIAL (J1720 PER 1) IV ONE (02:00)
[2021-06-27 02:19] LABS: LYMPH # 0.1 10^3/uL (1.5-5.0); LYMPH % 60.9 % (24.0-44.0); MEAN CORPUSCULAR HEMOGLOBIN 27.8 pg (27.0-33.0); MEAN CORPUSCULAR HGB CONC 31.1 g/dl (32.0-36.5); MEAN CORPUSCULAR VOLUME 89.6 fl (80.0-96.0); NEUTROPHILS % 17.4 % (36.0-66.0)
[2021-06-27 02:20] LABS: WHITE BLOOD COUNT 0.2 10^3/uL (4.0-10.0)
[2021-06-27 02:21] LABS: HEMATOCRIT 20.6 % (42.0-52.0)
[2021-06-27] MEDS: NOREPINEPHRINE BITARTRATE 8 MG in D5W 492 ML IV SCH ×2 (02:21→15:20)
[2021-06-27 02:22] LABS: HEMOGLOBIN 6.4 g/dl (13.5-17.5); PLATELET COUNT, AUTOMATED 47 10^3/uL (150-450)
[2021-06-27] MEDS: PIPERACILLIN/TAZOBACTAM SOD 3.375 GM in D5W MINI-BAG PLUS 50 ML IV SCH ×4 (02:45→21:46)
[2021-06-27 03:07] LABS: BLOOD UREA NITROGEN 38 MG/DL (7-18); CALCIUM LEVEL 6.6 MG/DL (8.8-10.2); CARBON DIOXIDE LEVEL 19 MEQ/L (21-32); CHLORIDE LEVEL 121 MEQ/L (98-107); CREATININE FOR GFR 1.23 MG/DL (0.70-1.30); GLOMERULAR FILTRATION RATE > 60.0 (>42); GLUCOSE, FASTING 225 MG/DL (70-100); POTASSIUM SERUM 2.8 MEQ/L (3.5-5.1); SODIUM LEVEL 152 MEQ/L (136-145)
[2021-06-27] MEDS: D5W 1,000 ML IV SCH ×3 (03:32→21:45)
[2021-06-27] MEDS: KCL 20MEQ IN 100ML SWI (KRUN) 20 MEQ in IV 1 EA IV SCH ×6 (03:56→08:44)
[2021-06-27] MEDS ORDERED: MAG SULF 1GM/100ML (MAG RUN) 1 GM in IV 1 EA IV ONE (04:00)
[2021-06-27] MEDS: HumaLOG INSULIN (NovoLOG) PER UNIT SC SCH ×4 (05:39→18:00)
[2021-06-27] MEDS ORDERED: CALCIUM GLUCONATE 1,000 MG in D5W MINI-BAG PLUS 100 ML IV ONE (08:00)
[2021-06-27 10:54] LABS: FERRITIN 2232 NG/ML (26-388); IRON (FE) 6 UG/DL (65-175); LDH LACTATE DEHYDROGENASE 184 U/L (87-241); PERCENT SATURATION 5.9 % (19.7-50.0); TOTAL IRON BINDING CAPACITY 102 UG/DL (250-450)
[2021-06-27 11:35] LABS: HEMATOCRIT 34.5 % (42.0-52.0); MEAN CORPUSCULAR HEMOGLOBIN 27.9 pg (27.0-33.0); MEAN CORPUSCULAR VOLUME 90.1 fl (80.0-96.0); RED BLOOD COUNT 3.83 10^6/uL (4.30-6.10)
[2021-06-27 11:36] LABS: HEMOGLOBIN 10.7 g/dl (13.5-17.5); PLATELET COUNT, AUTOMATED 56 10^3/uL (150-450); WHITE BLOOD COUNT 0.7 10^3/uL (4.0-10.0)
[2021-06-27] MEDS ORDERED: VANCOMYCIN HCL 1,000 MG, VIAL MATE ADAPTER 1 EACH in NS 250 ML IV SCH (12:00)
[2021-06-27] MEDS ORDERED: LIDOCAINE 1% MDV 20ML VIAL As Ordered ONE (13:00)
[2021-06-27 13:20] LABS: BLOOD UREA NITROGEN 33 MG/DL (7-18); CALCIUM LEVEL 8.3 MG/DL (8.8-10.2); CARBON DIOXIDE LEVEL 21 MEQ/L (21-32); CHLORIDE LEVEL 116 MEQ/L (98-107); CREATININE FOR GFR 1.15 MG/DL (0.70-1.30); GLOMERULAR FILTRATION RATE > 60.0 (>42); GLUCOSE, FASTING 205 MG/DL (70-100); POTASSIUM SERUM 4.9 MEQ/L (3.5-5.1); SODIUM LEVEL 145 MEQ/L (136-145)
[2021-06-28] VITALS (44 sets, daily range): BP systolic 82–119; BP diastolic 50–73
[2021-06-28] MEDS: HumaLOG INSULIN (NovoLOG) PER UNIT SC SCH ×4 (00:51→18:00)
[2021-06-28] MEDS: FLUCONAZOLE 100 MG in IV 1 EA IV SCH (01:39)
[2021-06-28] MEDS: PIPERACILLIN/TAZOBACTAM SOD 3.375 GM in D5W MINI-BAG PLUS 50 ML IV SCH ×4 (03:00→20:15)
[2021-06-28 06:34] LABS: BASO % 0.6 % (0.0-1.0); EOS % 1.8 % (0.0-3.0); HEMATOCRIT 28.1 % (42.0-52.0); HEMOGLOBIN 9.4 g/dl (13.5-17.5); LYMPH # 0.3 10^3/uL (1.5-5.0); LYMPH % 19.3 % (24.0-44.0); MEAN CORPUSCULAR HEMOGLOBIN 28.1 pg (27.0-33.0); MEAN CORPUSCULAR HGB CONC 33.5 g/dl (32.0-36.5); MEAN CORPUSCULAR VOLUME 84.1 fl (80.0-96.0); MONO # 0.1 10^3/uL (0.0-0.8); MONO % 4.1 % (2.0-8.0); NEUTROPHILS # 1.2 10^3/uL (1.5-8.5); NEUTROPHILS % 72.4 % (36.0-66.0); RED BLOOD COUNT 3.34 10^6/uL (4.30-6.10); WHITE BLOOD COUNT 1.7 10^3/uL (4.0-10.0)
[2021-06-28 06:36] LABS: PLATELET COUNT, AUTOMATED 51 10^3/uL (150-450)
[2021-06-28] MEDS: FILGRASTIM 300 MCG/0.5 ML SYRINGE **SC ADMINISTRATION ONLY SC SCH (06:44)
[2021-06-28 07:06] LABS: BLOOD UREA NITROGEN 19 MG/DL (7-18); CARBON DIOXIDE LEVEL 22 MEQ/L (21-32); CHLORIDE LEVEL 111 MEQ/L (98-107); CREATININE FOR GFR 0.77 MG/DL (0.70-1.30); GLOMERULAR FILTRATION RATE > 60.0 (>42); GLUCOSE, FASTING 171 MG/DL (70-100); POTASSIUM SERUM 2.3 MEQ/L (3.5-5.1); SODIUM LEVEL 143 MEQ/L (136-145)
[2021-06-28 07:07] LABS: CALCIUM LEVEL 7.1 MG/DL (8.8-10.2)
[2021-06-28] MEDS ORDERED: KCL 20MEQ IN 100ML SWI (KRUN) 20 MEQ in IV 1 EA IV ONE ×2 (08:00)
[2021-06-28] MEDS ORDERED: CALCIUM GLUCONATE 1,000 MG in D5W MINI-BAG PLUS 100 ML IV ONE ×2 (11:00→22:00)
[2021-06-28 11:07] LABS: MAGNESIUM LEVEL 1.8 MG/DL (1.8-2.4)
[2021-06-28] MEDS: KCL 20MEQ IN 100ML SWI (KRUN) 20 MEQ in IV 1 EA IV SCH ×8 (11:18→15:35)
[2021-06-28] MEDS ORDERED: KCL 20MEQ IN D5W 1000ML 1,000 ML IV SCH (12:00)
[2021-06-28] MEDS: VANCOMYCIN HCL 750 MG, VIAL MATE ADAPTER 1 EACH in NS 250 ML IV SCH (12:45)
[2021-06-28] MEDS ORDERED: SODIUM CHLORIDE 0.9% INJ 10 ML SYR IV PRN ×2 (15:40)
[2021-06-28] MEDS ORDERED: D5W MINI IV SCH (16:15)
[2021-06-28] MEDS ORDERED: ACYCLOVIR IV SCH (16:15)
[2021-06-28] MEDS ORDERED: MAG SULF 1GM/100ML (MAG RUN) 1 GM in IV 1 EA IV ONE (16:20)
[2021-06-28] MEDS: ACYCLOVIR IV SCH (17:28)
[2021-06-28] MEDS: D5W IV SCH (17:28)
[2021-06-28] MEDS: SODIUM CHLORIDE 0.9% INJ 10 ML SYR IV SCH (17:31)
[2021-06-28] MEDS ORDERED: HumaLOG INSULIN (NovoLOG) PER UNIT SC SCH (18:00)
[2021-06-28] MEDS ORDERED: AMINO AC/ELECTROLYTE/DEX/CALC 2,000 ML IV SCH (18:00)
[2021-06-28] MEDS ORDERED: FAT EMULSION IV 20% 500 ML IV SCH (18:00)
[2021-06-28 18:59] LABS: BLOOD UREA NITROGEN 13 MG/DL (7-18); CALCIUM LEVEL 7.3 MG/DL (8.8-10.2); CARBON DIOXIDE LEVEL 21 MEQ/L (21-32); CHLORIDE LEVEL 108 MEQ/L (98-107); CREATININE FOR GFR 0.65 MG/DL (0.70-1.30); GLOMERULAR FILTRATION RATE > 60.0 (>42); GLUCOSE, FASTING 136 MG/DL (70-100); POTASSIUM SERUM 3.2 MEQ/L (3.5-5.1); SODIUM LEVEL 139 MEQ/L (136-145)
[2021-06-28] MEDS ORDERED: NS 0.45% 1,000 ML IV SCH (22:50)
[2021-06-28] MEDS ORDERED: KCL 20MEQ IN STERILE WATER 100ML As Ordered ONE (23:59)
[2021-06-29] VITALS (35 sets, daily range): BP systolic 104–157; BP diastolic 66–90
[2021-06-29] MEDS: VANCOMYCIN HCL 750 MG, VIAL MATE ADAPTER 1 EACH in NS 250 ML IV SCH (00:11)
[2021-06-29] MEDS: HumaLOG INSULIN (NovoLOG) PER UNIT SC SCH ×3 (00:27→12:25)
[2021-06-29] MEDS: ACYCLOVIR IV SCH ×2 (02:00→10:17)
[2021-06-29] MEDS: D5W IV SCH ×2 (02:00→10:17)
[2021-06-29] MEDS: FLUCONAZOLE 100 MG in IV 1 EA IV SCH (02:29)
[2021-06-29] MEDS: PIPERACILLIN/TAZOBACTAM SOD 3.375 GM in D5W MINI-BAG PLUS 50 ML IV SCH ×2 (03:12→09:01)
[2021-06-29] MEDS ORDERED: ACETYLCYSTEINE 20% 4 ML VIAL (200MG/ML) INH SCH (04:00)
[2021-06-29 05:26] LABS: BASO # 0.1 10^3/uL (0.0-0.2); BASO % 0.6 % (0.0-1.0); EOS # 0.1 10^3/uL (0.0-0.5); EOS % 0.6 % (0.0-3.0); HEMATOCRIT 31.3 % (42.0-52.0); HEMOGLOBIN 10.7 g/dl (13.5-17.5); LYMPH # 0.7 10^3/uL (1.5-5.0); LYMPH % 7.7 % (24.0-44.0); MEAN CORPUSCULAR HEMOGLOBIN 28.2 pg (27.0-33.0); MEAN CORPUSCULAR HGB CONC 34.2 g/dl (32.0-36.5); MEAN CORPUSCULAR VOLUME 82.6 fl (80.0-96.0); MONO # 0.2 10^3/uL (0.0-0.8); MONO % 1.8 % (2.0-8.0); NEUTROPHILS # 6.6 10^3/uL (1.5-8.5); NEUTROPHILS % 76.6 % (36.0-66.0); RED BLOOD COUNT 3.79 10^6/uL (4.30-6.10); WHITE BLOOD COUNT 8.6 10^3/uL (4.0-10.0)
[2021-06-29 05:32] LABS: PLATELET COUNT, AUTOMATED 57 10^3/uL (150-450)
[2021-06-29] MEDS: SODIUM CHLORIDE 0.9% INJ 10 ML SYR IV SCH (05:43)
[2021-06-29] MEDS: FILGRASTIM 300 MCG/0.5 ML SYRINGE **SC ADMINISTRATION ONLY SC SCH (05:43)
[2021-06-29 05:54] LABS: BLOOD UREA NITROGEN 12 MG/DL (7-18); CARBON DIOXIDE LEVEL 20 MEQ/L (21-32); CHLORIDE LEVEL 106 MEQ/L (98-107); CREATININE FOR GFR 0.62 MG/DL (0.70-1.30); GLOMERULAR FILTRATION RATE > 60.0 (>42); GLUCOSE, FASTING 287 MG/DL (70-100); MAGNESIUM LEVEL 1.5 MG/DL (1.8-2.4); POTASSIUM SERUM 3.1 MEQ/L (3.5-5.1); SODIUM LEVEL 138 MEQ/L (136-145)
[2021-06-29 06:39] LABS: PHOSPHORUS LEVEL 0.6 MG/DL (2.5-4.9)
[2021-06-29] MEDS ORDERED: MAG SULF 1GM/100ML (MAG RUN) 1 GM in IV 1 EA IV ONE ×2 (07:00→08:15)
[2021-06-29] MEDS ORDERED: KCL 20MEQ IN 100ML SWI (KRUN) 20 MEQ in IV 1 EA IV ONE ×2 (08:00)
[2021-06-29] MEDS ORDERED: FUROSEMIDE 20MG/2ML VIAL (J1940) IV ONE (08:15)
[2021-06-29] MEDS ORDERED: LEVEMIR (INSULIN DETEMIR) 1 UNITS/0.01ML SC SCH (09:00)
[2021-06-29] MEDS ORDERED: CALCIUM GLUCONATE 1,000 MG in D5W MINI-BAG PLUS 100 ML IV ONE (09:00)
[2021-06-29] MEDS ORDERED: SODIUM CHLORIDE 0.9% INJ 10 ML SYR IV SCH (09:00)
[2021-06-29] MEDS ORDERED: POTASSIUM PHOSPHATE INJ 30 MMOL in D5W 500 ML IV ONE ×2 (10:00→16:00)
[2021-06-29] MEDS: KCL 20MEQ IN 100ML SWI (KRUN) 20 MEQ in IV 1 EA IV SCH ×8 (10:31→14:00)
[2021-06-29 12:14] LABS: PARTIAL THROMBOPLASTIN TIME 32.5 SECONDS (25.9-37.0)
[2021-06-29 12:30] LABS: ABG BASE EXCESS -1.9 (-2.0-2.0); ABG HCO3 20.1 MEQ/L (22.0-26.0); ABG O2 SATURATION 91.9 % (95.0-99.0); ABG PARTIAL PRESSURE CO2 26.4 mmHg (35.0-45.0); ABG PARTIAL PRESSURE O2 56.9 mmHg (75.0-100.0); ABG STANDARD HCO3 22.8 MEQ/L (22.0-26.0); ABG TOTAL CO2 20.9 MEQ/L (23.0-31.0)
[2021-06-29 12:33] LABS: BLOOD UREA NITROGEN 15 MG/DL (7-18); CALCIUM LEVEL 7.5 MG/DL (8.8-10.2); CARBON DIOXIDE LEVEL 21 MEQ/L (21-32); CHLORIDE LEVEL 101 MEQ/L (98-107); CREATININE FOR GFR 0.78 MG/DL (0.70-1.30); GLOMERULAR FILTRATION RATE > 60.0 (>42); GLUCOSE, FASTING 346 MG/DL (70-100); MAGNESIUM LEVEL 1.9 MG/DL (1.8-2.4); PHOSPHORUS LEVEL 1.8 MG/DL (2.5-4.9); POTASSIUM SERUM 3.5 MEQ/L (3.5-5.1); SODIUM LEVEL 134 MEQ/L (136-145)
[2021-06-29 12:39] LABS: D-DIMER QUANT > 4000 ng/ml (<500)
[2021-06-29] MEDS ORDERED: VANCOMYCIN HCL 1,000 MG, VIAL MATE ADAPTER 1 EACH in NS 250 ML IV SCH (13:00)
[2021-06-29 13:29] LABS: CK-MB VALUE MASS 1.1 NG/ML (<3.6); MB/CK RELATIVE INDEX 0.86 (< OR =4)
[2021-06-29] MEDS ORDERED: LORazepam 2 MG/ML VIAL IV PRN ×2 (14:30→15:35)
[2021-06-29] MEDS ORDERED: ONDANSETRON 4MG/2ML VIAL IV PRN (14:30)
[2021-06-29] MEDS ORDERED: LORazepam 2 MG/ML VIAL IV STA (14:30)
[2021-06-29] MEDS ORDERED: MORPHINE 2 MG/ML 1ML VIAL (J2270) IV ONE (14:30)
[2021-06-29] MEDS ORDERED: MORPHINE 2 MG/ML 1ML VIAL (J2270) IV PRN (14:30)
[2021-06-29] MEDS ORDERED: LORazepam 2 MG/ML VIAL As Ordered ONE (14:30)
[2021-06-29] MEDS ORDERED: MORPHINE 2 MG/ML 1ML VIAL (J2270) As Ordered ONE (14:31)
[2021-06-29] MEDS ORDERED: FUROSEMIDE 20MG/2ML VIAL (J1940) IV SCH (17:00)
[2021-06-29] MEDS: MORPHINE 2 MG/ML 1ML VIAL (J2270) IV PRN ×2 (17:45→18:56)
[2021-06-29] MEDS ORDERED: KCL 20MEQ IN 100ML SWI (KRUN) 20 MEQ in IV 1 EA IV SCH ×2 (20:00)
[2021-06-29] MEDS ORDERED: HEPARIN SOD (PORCINE) 5000UNITS/ML 1ML VIAL/SYRINGE SQ SCH (21:00)
== END 2021-06-29 21:27 | disposition expired | DRG 871 ==
LOC: M ED 12:30 → M ED INP 17:25 → M PCU 22:50
PROVIDERS: ADMIT Internal Medicine; ATTEND Internal Medicine
PROC: 02HV33Z Insertion of Infusion Device into Superior Vena Cava, Percutaneous Approach (ICD-10-PCS; principal; 2021-06-27 16:30)
DX: A41.9 Sepsis, unspecified organism (principal); R65.21 Severe sepsis with septic shock; E43 Unspecified severe protein-calorie malnutrition; J96.01 Acute respiratory failure with hypoxia; D61.810 Antineoplastic chemotherapy induced pancytopenia; N17.9 Acute kidney failure, unspecified; C18.9 Malignant neoplasm of colon, unspecified; E87.2 Acidosis; C79.31 Secondary malignant neoplasm of brain; C34.90 Malignant neoplasm of unspecified part of unspecified bronchus or lung; E87.0 Hyperosmolality and hypernatremia; C78.5 Secondary malignant neoplasm of large intestine and rectum; R13.10 Dysphagia, unspecified; Z66 Do not resuscitate; D70.1 Agranulocytosis secondary to cancer chemotherapy; I25.10 Atherosclerotic heart disease of native coronary artery without angina pectoris; E11.9 Type 2 diabetes mellitus without complications; I11.0 Hypertensive heart disease with heart failure; E78.5 Hyperlipidemia, unspecified; Z79.82 Long term (current) use of aspirin; Z79.899 Other long term (current) drug therapy; Z88.8 Allergy status to other drugs, medicaments and biological substances; Z20.822 Contact with and (suspected) exposure to COVID-19; K12.31 Oral mucositis (ulcerative) due to antineoplastic therapy; E83.42 Hypomagnesemia; E87.6 Hypokalemia; E83.39 Other disorders of phosphorus metabolism; I50.9 Heart failure, unspecified